=== PATIENT | male | born 2000 | race Caucasian/White ===

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

== ENCOUNTER 2025-04-27 03:22 | Emergency (ER) | payer OTHER, SELFPAY ==
--- OUTSIDE RECORDS SUMMARY | 2021-09-12 09:30 | XMS_ITS | Continuity of Care Document ---
Author Organization [facility] Address [address] [place] [address] Phone Care Team Providers Care Auto Inspector Name Role Phone Ramana AVINASHKan Unavailable Unavailable Allergies, Adverse Reactions, Alerts Substance Reaction Status Criticality No Known allergies Medications Medication Instructions Dosage Effective Dates (start - stop) Status Comments Septra DS 800 mg-160 mg tablet take 1 tablet by oral route every 12 hours for 10 datys 1 tablet - Active Procedures Procedure Date Resin Composite, 1 Surface, Posterior Ja Dental Panoramic Radiographic Image Dental Bitewings Radiographic, Four Imag es Comprehensive Oral Evaluation-New/Est Pt Exempt From Sealant Measure Caries Risk Assess & Doc High Risk Dental Bitewings Radiographic, Four Imag es Dental prophylaxis adult Flouride Varnish Comprehensive Oral Evaluation PERIODIC COMPREHENSIVE PREVENTIVE MED RE E/M; ESTABLISHED PATIENT; 01-01 COLLECTION OF VENOUS BLOOD BY BERTHA RE Amalgam two surfaces Amalgam one surface Extract Coronal remnants deciduous tooth Amalgam one surface Dental prophylaxis child Oral hygiene instruction Comprehensve oral evaluation Voided Encounter Comprehensve oral evaluation Dental bitewings two films Advance Directives Directive Yes / No Effective Date File Name No Information Encounters Encounter Description Practice Location Reason(s) For Visit Diagnoses Date Provider Providers Copied on Encounter [facility], [address], [place], [place], [address] , [place] tel: [phone] [facility] Dental caries, unspecified 2 Ramana Omer. [address], [place], [place], [address], [place]. [phone] Referring Provider: Kan Boles, [address], [place], [address] . tel:[phone] [facility], [address], [place], [place], [address] , [place] tel: [phone] [facility] Encounter for dental exam and cleaning w abnormal findingsDental caries, unspecified 2 No Information [facility], [address], [place], [place], [address] , [place] tel: [phone] [facility] Encounter for dental exam and cleaning w abnormal findings 7 No Information PERIODIC COMPREHENSIVE PREVENTIVE MED REE/M; ESTABLISHED PATIENT; 01-01 [facility], [address], [place], [place], [address] , [place] tel: [phone] [facility] Well Child Visit (chief complaint) ObesityRoutine infant or child health checkUrinary Tract Infection 3 No Information [facility], [address], [place], [place], [address] , [place] tel: [phone] [facility] Dental examination 3 No Information [facility], [address], [place], [place], [address] , [place] tel: [phone] [facility] Dental examination 3 No Information [facility], [address], [place], [place], [address] , [place] tel: [phone] [facility] Dental examination 3 No Information [facility], [address], [place], [place], [address] , tel: [phone] [facility] Dental examination 3 No Information [facility], [address], [place], [place], [address] , [place] tel: [phone] [facility] No Information 3 No Information [facility], [address], [place], [place], [address] , tel: [phone] [facility] Dental examination Oct- 3 No Information Family History Family Member Type Diagnosis Age At Onset No Information Immunizations Vaccine Date Status Comments Flu (split) (3 yrs or older) administered Source: New Immunization Record MMR administered Source: New Imm unization Record Payers Payer name Insurance type Covered constitution party ID Savannah berrios(s) D [facility] CI [id number] Social History Type Description Quantity Date Captured Comments Sex Male Smoking Status No Information Chief Complaint And Reason For Visit No Information Reason For Referral Reason For Referral No Information Plan Of Treatment Date Type Action Status Referral Referred To: Andrea Villegas MS RD [address] [place], [address] Ordered: Referral: Andrea Villegas MS RD. Nutrition. Evaluate and treat. ordered Future Order: Lab Order POC Urin alysis, Macroscopic ([id number]), Appointment on: , Sent on: Sent Future Order: Lab Order COMPREHE NSIVE METABOLIC PANEL W/EGFR ([id number]), Appointment on: , Sent on: Sent Future Order: Lab Order HEMOGLOB IN A1c ([id number]), Appointment on: , Sent on: Sent Future Order: Lab Order LIPID PA LIZZETH ([id number]), Appointment on: , Sent on: Sent Future Order: Lab Order POC Urin alysis, Macroscopic ([id number]), Appointment on: , Sent on: Sent Future Order: Lab Order CBC (H/H , RBC, INDICES, WBC, PLT) ([id number]), Appointment on: , Sent on: Sent Future Order: Lab Order POC Urin alysis, Macroscopic ([id number]), Appointment on: , Sent on: Sent History Of Present Illness Encounter Date Complaint History Of Prese nt Illness No Information Functional Status Date Functional Assessmen t No Information Instructions Date Instruction Additional Infor mation No Information Assessments Type Assessment Date No Information Patient Care Teams Name Effective Dates (start - stop) Status Members No Information
--- OUTSIDE RECORDS SUMMARY | 2021-09-12 09:30 | XMS_ITS | Continuity of Care Document ---
Author Organization [facility] Address [address] [place] [address] Phone Care Team Providers Care Epic Specialist Name Role Phone Ramana AVINASHKan Unavailable Unavailable [...] Encounter [facility], [address], [place], [place], [address] , [place] tel: [phone] [facility] Dental caries, unspecified 2 Ramana Omer. [address], [place], [place], [address], [place]. [phone] Referring Provider: Kan Boles, [address], [place], [address] . tel:[phone] [facility], [address], [place], [place], [address] , [place] tel: [phone] [facility] Encounter for dental exam and cleaning w abnormal findingsDental caries, unspecified 2 No Information [facility], [address], [place], [address] , [place] tel: [phone] [facility] Encounter for dental exam and cleaning w abnormal findings 7 No Information PERIODIC COMPREHENSIVE PREVENTIVE MED REE/M; ESTABLISHED PATIENT; 01-01 [facility], [address], [place], [place], [address] , [place] tel: [phone] [facility] Well Child Visit (chief complaint) ObesityRoutine infant or child health checkUrinary Tract Infection 3 No Information [facility], [address], [place], [address] , [place] tel: [phone] [facility] Dental examination 3 No Information [facility], [address], [place], [place], [address] , [place] tel: [phone] [facility] Dental examination 3 No Information [facility], [address], [place], [place], [address] , [place] tel: [phone] [facility] Dental examination 3 No Information [facility], [address], [place], [place], [address] , tel: [phone] [facility] Dental examination 3 No Information [facility], [address], [place], [address] , [place] tel: [phone] [facility] No Information 3 No Information [facility], [address], [place], [place], [address] , tel: [phone] [facility] Dental examination Oct- 3 No Information Family History Family Member Type Diagnosis Age At Onset No Information Immunizations Vaccine Date Status Comments Flu (split) (3 yrs or older) administered Source: New Immunization Record MMR administered Source: New Imm unization Record Payers Payer name Insurance type Covered republican ID Savannah berrios(s) D [facility] [place] [id number] Social History Type Description Quantity Date Captured Comments Sex Male Smoking Status No Information Chief Complaint And Reason For Visit No Information Reason For Referral Reason For Referral No Information Plan Of Treatment Date Type Action Status Referral Referred To: Andrea Villegas MS RD [address] [place], [address] Ordered: Referral: Andrea Villegas MS RD. Nutrition. Evaluate and treat. ordered Future Order: Lab Order POC Urin alysis, Macroscopic ([id number]), Appointment on: , Sent on: Sent Future Order: Lab Order COMPREHE NSIVE METABOLIC PANEL W/EGFR ([id number]), Appointment on: , Sent on: Sent Future Order: Lab Order HEMOGLOB IN A1c ([id number]), Appointment on: , Sent on: Sent Future Order: Lab Order LIPID PA LIZZETH ([id number]), Appointment on: , Sent on: Sent Future Order: Lab Order POC Urin alysis, Macroscopic ([id number]), Appointment on: , Sent on: Sent Future Order: Lab Order CBC (H/H , RBC, INDICES, WBC, PLT) ([id number]), Appointment on: , Sent on: Sent Future Order: Lab Order POC Urin alysis, Macroscopic ([id number]), Appointment on: , Sent on: Sent History Of Present Illness Encounter Date Complaint History Of Prese nt Illness No Information Functional Status Date Functional Assessmen t No Information Instructions Date Instruction Additional Infor mation No Information Assessments Type Assessment Date No Information Patient Care Teams Name Effective Dates (start - stop) Status Members No Information
--- NOTE | ~2025-04-27 | XR_ITS ---
EXAM/PROCEDURE: XR chest 1V portable - 04/27/2025 3:55 CDT HISTORY: 24 years old Male with chest pain, shortness of breath TECHNIQUE: Two view(s) of the chest. COMPARISON: None available. FINDINGS: LUNGS/ PLEURA: No focal consolidation. Mild perihilar bronchial wall thickening. HEART/ MEDIASTINUM: Heart appears normal in size. BONES: No acute osseous abnormality. OTHER: Visualized upper abdomen is unremarkable. IMPRESSION: No focal consolidation. Mild perihilar bronchial wall thickening, findings suggestive of respiratory bronchiolitis. Reviewed, dictated and finalized at location N. IMPRESSION: No focal consolidation. Mild perihilar bronchial wall thickening, findings sugg estive of respiratory bronchiolitis.
--- OUTSIDE RECORDS SUMMARY | 2025-04-27 03:24 | XMS_ITS | Encounter Summary ---
Author Organization [facility] Address [address] [place] [address] Care Team Providers Care Core Sticker Name Role Phone Ramone Heller MD Unavailable Esperanza Mccabe PA-C Primary Care Provider [phone] Judith Camarillo APRN-DANIEL Unavailable [phone] Reason for Visit * Reason Onset Date Comments MEDICATION REFILL 03/05/2023 States it need s updated TSH and BMP Encounter Details Date Type Department Care Team (Late st Contact Info) Description 03/05/2023 Refill [facility] - Family Medicine [address] [place] [address] Esperanza Mccabe, PA-C [address] [address] MEDICATION REFILL (States it needs updated TSH and BMP) Social History Tobacco Use Types Packs/Day Years Used Date Smoking Tobacco: Never Smokeless Tobacco: Never Alcohol Use Standard Drinks/Week Comments No 0 (1 standard drink = 0.6 oz pur e alcohol) PHQ-2 Answer Date Recorded PHQ2 TOTAL SCORE 6 01/28/2023 Sex and Gender Information Value Date Recorded Sex Assigned at Male 03/23/2023 9:05 AM CDT Legal Sex Male 5:42 AM WEB ASSISTANT Gender Identity Male 03/23/2023 9:05 AM CDT Sexual Orientation Bisexual 03/23/2023 9: 05 AM CDT documented as of this encounter Functional Status * Is person deaf or have serious hearing difficulty? Answer Date of Assessment Author No 05/12/2017 8:57 PM CDT Gay Conley RN * Is person blind or have serious difficulty seeing? Answer Date of Assessment Author No 05/12/2017 8:57 PM CDT Gay Conley, NAVI * Does person have serious difficulty walking/climbing stairs? Answer Date of Assessment Author Yes 05/12/2017 8:57 PM CDT Gay Conley RN * Does person have difficulty dressing/bathing? Answer Date of Assessment Author No 05/12/2017 8:57 PM CDT Gay Conley RN * Does person have difficulty doing errands alone? Answer Date of Assessment Author No 05/12/2017 8:57 PM CDT Gay Conley RN documented as of this encounter Mental Status * Does person have difficulty concentrating/remembering/making decisions? Answer Entry Date Author No 05/12/2017 8:57 PM CDT Gay Conley RN documented in this encounter Miscellaneous Notes * Telephone Encounter - Leighann Mckeon RN - 03/06/2023 10:29 AM CDT Refill Request Jerrell Llamas JEFF: 01/06/23 NOV due: 4 weeks NOV scheduled: 03/24/2023 LRF: 01/06/23 Qty Disp: 90 # of refills: 4 Last TSH: 01/07/2023 Last BMP: 01/27/2019 Allergies: No Known Allergies Pended Medication Order: Requested Prescriptions Pending Prescriptions Disp Refills ??? levothyroxine (Synthroid) 100 MCG tablet 90 tablet 4 Sig: Take 1 (one) tablet by mouth once daily ??? hydroCHLOROthiazide (Microzide) 12.5 MG capsule 90 capsule 4 Sig: Take 1 (one) capsule by mouth once daily documented in this encounter Plan of Treatment Not on file documented as of this encounter Visit Diagnoses Not on filedocumented in this encounter Care Teams Core Sticker Relationship Specialty Start Date End Date Esperanza Mccabe PA-C [address] [place] [phone] PCP - General Physician Radiation Oncology Nurse 02/03/23 Judith Camarillo APRN-PLUGGING MACHINE OPERATOR [address] [place] [phone] PCP - Attributed-[place] [employer] Medicaid STL 08/24/23 12/10/23 Ramone Heller MD [address] [place] [address] Student Resident 02/21/19 documented as of this encounter
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
--- OUTSIDE RECORDS SUMMARY | 2025-04-27 03:24 | XMS_ITS | Encounter Summary ---
Author Organization [facility] Address [address] [place] [address] Care Team Providers Care Traffic Incident Management Manager Name Role Phone Ramone Heller MD Unavailable Esperanza Mccabe PA-C Primary Care Provider Judith Camarillo Unavailable [phone] Reason for Visit * Reason Onset Date Comments MEDICATION REFILL 10/21/2023 Encounter Details Date Type Department Care Team (Late st Contact Info) Description 10/21/2023 Refill [facility] - Family Medicine [address] [place] [address] Esperanza Mccabe PAJaki [address] [address] MEDICATION REFILL Social History Tobacco Use Types Packs/Day Years Used Date Smoking Tobacco: Never Smokeless Tobacco: Never Alcohol Use Standard Drinks/Week Comments No 0 (1 standard drink = 0.6 oz pur e alcohol) PHQ-2 Answer Date Recorded Patient Health Questionnaire-2 Score 1 05/18/2023 Sex and Gender Information Value Date Recorded Sex Assigned at Male 03/23/2023 9:05 AM CDT Legal Sex Male 5:42 AM ELEVATOR ERECTOR Gender Identity Male 03/23/2023 9:05 AM CDT [...] Gay Conley RN * Does person have serious difficulty walking/climbing [...] encounter Miscellaneous Notes * Telephone Encounter - Esperanza Mccabe PA-C - 10/23/2023 5:27 PM ELEVATOR ERECTOR NEEDS APPT prior to any further refills after today's refills. ATOR ERECTOR documented in this encounter Plan of Treatment Not on file documented as of this encounter Visit Diagnoses Not on filedocumented in this encounter Care Teams Traffic Incident Management Manager Relationship Specialty Start Date End Date Esperanza Mccabe PA-C [address] [facility] [address] [place] [address] PCP - General Physician Wrapper Caser 02/03/23 Judith Camarillo APRN-PHYSICIAN ASSISTANT PSYCHIATRY [address] [place] [address] PCP - Attributed-[place] [employer] Medicaid STL 08/24/23 12/10/23 Ramone Heller MD [address] [place] [address] Student Resident 02/21/19 documented as of this encounter
--- OUTSIDE RECORDS SUMMARY | 2025-04-27 03:24 | XMS_ITS | Encounter Summary ---
Author Organization [facility] Address [address] [place] [address] Care Team Providers Care Candy Attendant Name Role Phone Tyshawn Barnes MD Primary Care Provider [phone] Adore Castillo DO Unavailable [phone] Ramone Heller MD Unavailable [phone] Rosetta Wall DO Primary Care Provider Esperanza Mccabe PA-C Primary Care Provider Judith Camarillo APRN-MEASUREMENT PSYCHOLOGIST Unavailable [phone] Encounter Details Date Type Department Care Team (Late st Contact Info) Description 01/28/2019 Telephone [facility] Pediatrics - Endocrinology [facility] [place] [place] [address] Angelina Casillas DO [address] [place] [address] Social History Tobacco Use Types Packs/Day Years Used Date Smoking Tobacco: Never Smokeless Tobacco: Never Alcohol Use Standard Drinks/Week Comments No 0 (1 standard drink = 0.6 oz pur e alcohol) Sex and Gender Information Value Date Recorded Sex Assigned at Male 03/23/2023 9:05 AM CDT Legal Sex Male 5:42 AM FASHION MARKETER Gender Identity Male 03/23/2023 9:05 AM CDT [...] Entry Date Author No 05/12/2017 8:57 PM CUAUHTEMOCT Gay Conley RN documented in this encounter Plan of Treatment Not on file documented as of this encounter Visit Diagnoses Not on filedocumented in this encounter Care Teams Candy Attendant Relationship Specialty Start Date End Date Tyshawn Barnes MD [address] [place] [address] PCP - General Pediatrics 11/07/14 10/20/22 Rosetta Wall DO [address] [facility] [place] [id number] PCP - General 10/21/22 02/02/23 Esperanza Mccabe PA-C [address] [phone] PCP - General Physician Mobility Specialist 02/03/23 Judith Camarillo APRN-MEASUREMENT PSYCHOLOGIST [address] [place] [address] PCP - Attributed-[place] [employer] Medicaid STL 08/24/23 12/10/23 Adore Castillo DO [address] [place] [phone] Student Resident 02/06/16 02/20/19 Ramone Heller MD [address] [place] [id number] Student Resident 02/21/19 documented as of this encounter
--- OUTSIDE RECORDS SUMMARY | 2025-04-27 03:24 | XMS_ITS | Encounter Summary ---
Author Organization [facility] Address [address] [place] [address] Care Team Providers Care Pet Caretaker Name Role Phone Ramone Heller MD Unavailable Esperanza Mccabe PA-C Primary Care Provider Reason for Visit * Reason Onset Date Comments MEDICATION REFILL 07/13/2024 Encounter Details Date Type Department Care Team (Late st Contact Info) Description 07/13/2024 Refill [facility] - Family Medicine [address] [place] [address] Esperanza Mccabe PA-C [address] [address] MEDICATION REFILL Social History Tobacco [...] AM CDT Legal Sex Male 5:42 AM REHABILITATION CENTER MANAGER Gender Identity Male 03/23/2023 9:05 AM CDT [...] of Assessment Author No 05/12/2017 8:57 PM Gay Russell RN documented as of this encounter Mental Status * Does person have difficulty concentrating/remembering/making decisions? Answer Entry Date Author No 05/12/2017 8:57 PM Gay Russell RN documented in this encounter Plan of Treatment Not on file documented as of this encounter Visit Diagnoses Not on filedocumented in this encounter Care Teams Pet Caretaker Relationship Specialty Start Date End Date Esperanza Mccabe PAGamalC [address] [address] PCP - General Physician Geology Professor 02/03/23 Ramone Heller MD [facility] [place] [address] Student Resident 02/21/19 documented as of this encounter
--- OUTSIDE RECORDS SUMMARY | 2025-04-27 03:24 | XMS_ITS | Encounter Summary ---
Author Organization [facility] Address [address] [place] [address] Care Team Providers Care Unix System Administrator Name Role Phone Ramone Heller MD Unavailable [phone] Esperanza Mccabe PA-C Primary Care Provider [phone] Judith Camarillo Unavailable [phone] Reason for Visit * Reason Onset Date Comments MEDICATION REFILL 02/03/2023 Encounter Details Date Type Department Care Team (Late st Contact Info) Description 02/03/2023 Refill [facility] - [facility] Medicine [address] [place] [address] Esperanza Mccabe PAJaki [address] [address] MEDICATION REFILL Social History Tobacco [...] AM CDT Legal Sex Male 5:42 AM CNA LTC Gender Identity Male 03/23/2023 9:05 AM CDT Sexual Orientation Bisexual 03/23/2023 9: 05 AM CDT COVID-19 Exposure Response Date Recorded In the last 10 days, have yo u been in contact with someone who was confirmed or suspected to have Coronavirus/COVID-19? No / Unsure 01/06/2023 2:07 PM CDT documented as of this encounter Functional [...] encounter Miscellaneous Notes * Telephone Encounter - Noemy Almanzar - 02/03/2023 9:26 AM CDT Jerrell Llamas Requested Prescriptions Pending Prescriptions Disp Refills ??? vitamin D, ergocalciferol, (Drisdol) 1.25 MG (57107 UT) capsule 12 capsule 0 Sig: Take 1 (one) capsule by mouth every 7 days No Known Allergies Last Refill:01/06/2023 Qty Dispense:12 # of Refills:0 Last OV:01/02/2023 Next OV:none documented in this encounter Plan of Treatment Not on file documented as of this encounter Visit Diagnoses Not on filedocumented in this encounter Care Teams Unix System Administrator Relationship Specialty Start Date End Date Esperanza Mccabe PA-C [address] [place] [phone] PCP - General Physician Lockstitch Coat Joiner 02/03/23 Judith Camarillo APRN-SUPERVISOR STATEMENT CLERKS [address] [place] [address] PCP - Attributed-[place] Healthy Blue Medicaid STL 08/24/23 12/10/23 Ramone Heller MD [address] [place] [address] Student Resident 02/21/19 documented as of this encounter
--- OUTSIDE RECORDS SUMMARY | 2025-04-27 03:24 | XMS_ITS | Encounter Summary ---
Author Organization [facility] Address [address] [place] [address] Care Team Providers Care Administrative Support Manager Name Role Phone Ramone Heller MD Unavailable Esperanza Mccabe PA-C Primary Care Provider Reason for Visit * Reason Onset Date Comments MEDICATION REFILL 01/20/2024 Encounter Details Date Type Department Care Team (Late st Contact Info) Description 01/20/2024 Refill [facility] - Family Medicine [address] [place] [address] Esperanza Mccabe PA-C [address] [facility] [address] [place] [address] MEDICATION REFILL Social History Tobacco Use [...] AM CDT Legal Sex Male 5:42 AM SUPERVISOR SCOURING PADS Gender Identity Male 03/23/2023 9:05 AM CDT [...] on filedocumented in this encounter Care Teams Administrative Support Manager Relationship Specialty Start Date End Date Esperanza Mccabe PAGamalC [address] [address] PCP - General Physician Geographic Information System Analyst 02/03/23 Ramone Heller MD [facility] [place] [address] Student Resident 02/21/19 documented as of this encounter
--- OUTSIDE RECORDS SUMMARY | 2025-04-27 03:24 | XMS_ITS | Clinical Summary ---
Author Organization [facility] Address [address] [place] [address] Care Team Providers Care Snow Plow Tractor Operator Name Role Phone Gordon Josue MD Primary Care Provider [phone] Allergies No known active allergies Medications [facility] Allergy 180 mg tablet as needed 1 Active ergocalciferol (VITAMIN D) 50,000 unit capsule Take 1 capsule (50,000 Units total) by mouth once a week 12 capsule 1 Active Additional Information Patient not taking.Reported on 03/29/2021 levothyroxine (SYNTHROID) 100 mcg tablet Take 1 tablet (100 mcg total) by mouth daily 90 tablet 3 1 Active Active Problems No known active problems Medical History Medical History Date Comments Hypothyroidism Vitamin D deficiency Obesity Family History Medical History Relation Name Comments No Known Problems Mother Diabetes Paternal Grandfather Relation Name Status Comments Mother Paternal Grandfather Social History Tobacco Use Types Packs/Day Years Used Date Smoking Tobacco: Never Smokeless Tobacco: Never Personal Safety Answer Date Recorded Getting School Help Needed Not on file 11/07 Sex and Gender Information Value Date Recorded Sex Assigned at Not on file Legal Sex Male 10:57 AM CDT Gender Identity Not on file Sexual Orientation Not on file Obstetrics History Last Filed Vital Signs Vital Sign Reading Time Taken Comments Blood Pressure 102/84 01/02/2021 8:54 AM CDT Pulse 96 01/02/2021 8:54 AM CDT Temperature 35.9 C (96.6 F) 01/02/2021 8:54 AM CDT Respiratory Rate - - Oxygen Saturation 97% 01/02/2021 8:54 AM CDT Inhaled Oxygen Concentration - - Weight 217.7 kg (480 lb) 03/29/2021 1:06 PM CDT Height 180.3 cm (5' 11) 03/29/2021 1:06 PM CDT Body Mass Index 66.95 03/29/2021 1:06 PM CDT Plan of Treatment Not on file Care Teams Snow Plow Tractor Operator Relationship Specialty Start Date End Date Gordon Josue MD PCP - General Emergency Medicine 12/24/20
--- OUTSIDE RECORDS SUMMARY | 2025-04-27 03:24 | XMS_ITS | Encounter Summary ---
Author Organization [facility] Address [address] [facility] [place] [address] Care Team Providers Care Executive Administrator Name Role Phone Ramone Heller MD Unavailable [phone] Esperanza Mccabe PA-C Primary Care Provider Judith Camarillo Unavailable [phone] Reason for Visit * Reason Onset Date Comments MEDICATION REFILL 07/15/2023 Encounter Details Date Type Department Care Team (Late st Contact Info) Description 07/15/2023 Refill [facility] - [facility] Medicine [address] [place] [address] Esperanza Mccabe PAJaki [address] [address] MEDICATION REFILL Social History Tobacco [...] AM CDT Legal Sex Male 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
--- OUTSIDE RECORDS SUMMARY | 2025-04-27 03:24 | XMS_ITS | Encounter Summary ---
Author Organization [facility] Address [address] [place] [address] Care Team Providers Care Surgical Garment Inspector Name Role Phone Tyshawn Barnes MD Primary Care Provider [phone] Adore Castillo DO Unavailable [phone] Ramone Heller MD Unavailable [phone] Rosetta Wall DO Primary Care Provider Esperanza Mccabe PA-C Primary Care Provider Judith Camarillo APRN-PACKAGE REINSPECTOR Unavailable [phone] Reason for Visit * Reason Onset Date Comments Concerns 10/30/2017 Encounter Details Date Type Department Care Team (Late st Contact Info) Description 10/30/2017 Telephone [facility] [address] [place] [address] Tyshawn Barnes MD [address] [place] [address] Concerns Social History Tobacco Use Types Packs/Day Years Used Date Smoking Tobacco: Never Smokeless Tobacco: Never Alcohol Use Standard Drinks/Week Comments No 0 (1 standard drink = 0.6 oz pur e alcohol) Sex and Gender Information Value Date Recorded Sex Assigned at Male 03/23/2023 9:05 AM CDT Legal Sex Male 5:42 AM WELFARE AIDE Gender Identity Male 03/23/2023 9:05 AM CDT Sexual Orientation Bisexual 03/23/2023 9: 05 AM CDT documented as of this encounter Functional Status * Is person deaf or have serious hearing difficulty? Answer Date of Assessment Author No 05/12/2017 8:57 PM CDT Gay Conley, NAVI * Is person blind or have serious [...] Gay Conley, NAVI * Does person have difficulty doing errands alone? Answer Date of Assessment Author No 05/12/2017 8:57 PM CDT Gay Conley RN documented as of this encounter Mental Status * Does person have difficulty concentrating/remembering/making decisions? Answer Entry Date Author No 05/12/2017 8:57 PM Gay Russell RN documented in this encounter Miscellaneous Notes * Telephone Encounter - Noemi Vences MD - 10/30/2017 11:22 AM CST Called grandmother and verified that there was no VM left. Review of chart, do not see any message that was supposed to be relayed to the family. Grandmother has no concerns and already spoke to confirm appt next 11/02. ARE AIDE * Telephone Encounter - Cheli Castillo - 10/30/2017 9:46 AM CST Jerrell Llamas's, 16 y.o. male, grandmother stated that she missed a call from us but there's nonote in the chart. Agreed to route call back to the doctors to make sure there's nothing the patient or grandmother needs to do before their upcoming appointment. Instructed that provider will call back at their earliest convenience. ARE AIDE documented in this encounter Plan of Treatment Not on file documented as of this encounter Visit Diagnoses Not on filedocumented in this encounter Care Teams Surgical Garment Inspector Relationship Specialty Start Date End Date Tyshawn Barnes MD [address] [place] [phone] PCP - General Pediatrics 11/07/14 10/20/22 Rosetta Wall DO [address] [place] [address] [facility] [place] [phone] PCP - General 10/21/22 02/02/23 Esperanza Mccabe PA-C [address] [phone] PCP - General Physician Fugitive Investigator 02/03/23 Judith Camarillo APRN-PACKAGE REINSPECTOR [address] [place] [phone] [facility] - [facility] 08/24/23 12/10/23 Adore Castillo DO [address] [place] [phone] Student Resident 02/06/16 02/20/19 Ramone Heller MD [address] [place] [address] Student Resident 02/21/19 documented as of this encounter
--- OUTSIDE RECORDS SUMMARY | 2025-04-27 03:24 | XMS_ITS | Encounter Summary ---
Author Organization [facility] Address [address] [place] [address] Care Team Providers Care Lard Bleacher Name Role Phone Tyshawn Barnes MD Primary Care Provider [phone] Adore Castillo DO Unavailable [phone] Ramone Heller MD Unavailable [phone] Rosetta Wall DO Primary Care Provider Esperanza Mccabe PA-C Primary Care Provider Judith Camarillo APRN-CHIPS SCREEN TENDER Unavailable [phone] Reason for Visit * Reason Onset Date Comments Refill Request 04/19/2018 Encounter Details Date Type Department Care Team (Late st Contact Info) Description 04/19/2018 Telephone [facility] [address] [place] [address] Tyshawn Barnes MD [address] [place] [address] Refill Request Social History Tobacco Use Types Packs/Day Years Used Date Smoking Tobacco: Never Smokeless Tobacco: Never Alcohol Use Standard Drinks/Week Comments No 0 (1 standard drink = 0.6 oz pur e alcohol) Sex and Gender Information Value Date Recorded Sex Assigned at Male 03/23/2023 9:05 AM CDT Legal Sex Male 5:42 AM DIRECTOR FINANCIAL PLANNING Gender Identity Male 03/23/2023 9:05 AM CDT [...] encounter Miscellaneous Notes * Telephone Encounter - Estelita Castellon DO - 04/19/2018 3:50 PM CDT Refilled prescriptions * Telephone Encounter - Whitley Gilmore - 04/19/2018 3:44 PM CDT Pharmacy fax request received. Medication(s) to be refilled: alaway 0.025% eye drops, loratadine (CLARITIN) 10 MG tablet Last well child check up: 11/02/17 Pharmacy verified in [facility]. No future appointments. documented in this encounter Plan of Treatment Not on file documented as of this encounter Visit Diagnoses Not on filedocumented in this encounter Care Teams Lard Bleacher Relationship Specialty Start Date End Date Tyshawn Barnes MD [address] [place] [address] PCP - General Pediatrics 11/07/14 10/20/22 Rosetta Wall DO [facility] 2L DIV OF [facility] [place] [place] [phone] PCP - General 10/21/22 02/02/23 Esperanza Mccabe, PAGamalC [address] [address] PCP - General Physician Inside Sales Account Executive 02/03/23 Judith Camarillo, NEWSPAPER DELIVERY DRIVER-CHIPS SCREEN TENDER [address] [place] [phone] PCP - Attributed-[place] Healthy Blue Medicaid STL 08/24/23 12/10/23 Adore Castillo DO [address] [place] [phone] Student Resident 02/06/16 02/20/19 Ramone Heller MD [address] [place] [address] Student Resident 02/21/19 documented as of this encounter
--- OUTSIDE RECORDS SUMMARY | 2025-04-27 03:24 | XMS_ITS | Encounter Summary ---
Author Organization [facility] Address [address] [facility] [place] [address] Care Team Providers Care Traffic Engineer Name Role Phone Ramone Heller MD Unavailable [phone] Esperanza Mccabe PA-C Primary Care Provider [phone] Reason for Visit * Reason Onset Date Comments MEDICATION REFILL 08/21/2024 Encounter Details Date Type Department Care Team (Late st Contact Info) Description 08/21/2024 Refill [facility] - [facility] [address] [place] [address] Esperanza Mccabe PA-C [address] [address] MEDICATION REFILL Social History Tobacco [...] AM CDT Legal Sex Male 5:42 AM PROCUREMENT ACCOUNTANT Gender Identity Male 03/23/2023 9:05 AM CDT [...] Telephone Encounter - Esperanza Mccabe PA-C - 08/29/2024 12:39 PM PROCUREMENT ACCOUNTANT He needs to see me IN PERSON prior to any refills. If he makes an appointment, I can prescribe enough to get him to that appointment. I saw him last 07/2023, by video, and asked him then to follow up ERASTO in person. UREMENT ACCOUNTANT * Telephone Encounter - Kaley Bonilla - 08/22/2024 1:38 PM CST Refill Request Jerrell Llamas Jr. JEFF: 07/28/23 NOV due: - NOV scheduled: Visit date not found LRF: 07/14/24,07/14/24 Qty Disp: 30,30 # of refills: 1,1 Allergies: No Known Allergies Pended Medication Order: Requested Prescriptions Pending Prescriptions Disp Refills hydroCHLOROthiazide (Microzide) 12.5 MG capsule 30 capsule 1 Sig: Take 1 (one) capsule by mouth once daily levothyroxine (Synthroid) 125 MCG tablet 30 tablet 1 Sig: Take 1 (one) tablet by mouth once daily UREMENT ACCOUNTANT documented in this encounter Plan of Treatment Not on file documented as of this encounter Visit Diagnoses Not on filedocumented in this encounter Care Teams Traffic Engineer Relationship Specialty Start Date End Date Esperanza Mccabe PA-C [address] [facility] [address] [place] [phone] PCP - General Physician Structural Steel Painter 02/03/23 Ramone Heller MD [address] [place] [address] Student Resident 02/21/19 documented as of this encounter
[2025-04-27 03:29] VITALS: BP 161/102; PULSE 96; RESP 22; TEMP 36.6; O2SAT 99
--- NOTE | 2025-04-27 03:36 | ECG_ITS ---
Test Date: 2025-04-27 03:45:31 Measurements Intervals [place] Rate: 95 P: 47 WA: 144 QRS: 54 QRSD: 101 T: 47 QT: 329 QTc: 414 Interpretive Statements SINUS RHYTHM No previous ECG available for comparison Electronically Signed On 04-27-2025 11:37:20 CDT by Pollo Aparicio M.D.
[2025-04-27] MEDS: KETOROLAC 30 MG/ML VIAL (*BKC) IM (04:11)
[2025-04-27] MEDS: LIDOCAINE 5% PATCH 1 PATCH TRANSDERM (04:12)
--- OUTSIDE RECORDS SUMMARY | 2025-04-27 04:20 | XMS_ITS | Encounter Summary ---
Author Organization [facility] Address [address] [place] [address] Care Team Providers Care Broadcaster Name Role Phone Tyshawn Barnes MD Primary Care Provider [phone] Adore Castillo DO Unavailable [phone] Ramone Heller MD Unavailable [phone] Rosetta Wall DO Primary Care Provider Esperanza Mccabe PA-C Primary Care Provider Judith Camarillo APRN-HAND THERMAL CUTTER Unavailable [phone] Reason for Visit * Reason Onset Date Comments Refill Request 04/19/2018 Encounter Details Date Type Department Care Team (Late st Contact Info) Description 04/19/2018 Telephone [facility] [address] [place] [address] Tyshawn Barnes MD [address] [place] [address] Refill Request Social History Tobacco Use Types Packs/Day Years Used Date Smoking Tobacco: Never Smokeless Tobacco: Never Alcohol Use Standard Drinks/Week Comments No 0 (1 standard drink = 0.6 oz pur e alcohol) Sex and Gender Information Value Date Recorded Sex Assigned at Male 03/23/2023 9:05 AM CDT Legal Sex Male 5:42 AM TEACHER PRIVATE Gender Identity Male 03/23/2023 9:05 AM CDT [...] child check up: 11/02/17 Pharmacy [facility] in [facility] medical [facility]. No future appointments. documented in this encounter Plan of Treatment Not on file documented as of this encounter Visit Diagnoses Not on filedocumented in this encounter Care Teams Broadcaster Relationship Specialty Start Date End Date Tyshawn Barnes MD [address] [place] [address] PCP - General Pediatrics 11/07/14 10/20/22 Rosetta Wall DO [facility] 2L DIV OF [facility] [place] [phone] PCP - General 10/21/22 02/02/23 Esperanza Mccabe, PAGamalC [address] [address] PCP - General Physician Fertilizer Mixer 02/03/23 Judith Camarillo, EQUIPMENT MECHANIC-HAND THERMAL CUTTER [address] [place] [phone] PCP - Attributed-[place] Healthy Blue Medicaid STL 08/24/23 12/10/23 Adore Castillo DO [address] [place] [phone] Student Resident 02/06/16 02/20/19 Ramone Heller MD [address] [place] [address] Student Resident 02/21/19 documented as of this encounter
--- OUTSIDE RECORDS SUMMARY | 2025-04-27 04:20 | XMS_ITS | Encounter Summary ---
Author Organization [facility] Address [address] [facility] [place] [address] Care Team Providers Care Dye Room Helper Name Role Phone Ramone Heller MD Unavailable Esperanza Mccabe PA-C Primary Care Provider Reason for Visit * Reason Onset Date Comments MEDICATION REFILL 08/21/2024 Encounter Details Date Type Department Care Team (Late st Contact Info) Description 08/21/2024 Refill [facility] [address] [place] [address] Esperanza Mccabe PA-C [address] [address] MEDICATION REFILL Social History Tobacco [...] AM CDT Legal Sex Male 5:42 AM NET APPLICATION ARCHITECT Gender Identity Male 03/23/2023 9:05 AM CDT [...] Esperanza Mccabe PA-C - 08/29/2024 12:39 PM NET APPLICATION ARCHITECT He needs to see me IN PERSON prior to any refills. If he makes an appointment, I can prescribe enough to get him to that appointment. I saw him last 07/2023, by video, and asked him then to follow up ERASTO in person. APPLICATION ARCHITECT * Telephone Encounter - Kaley Bonilla - [...] 1 (one) tablet by mouth once daily APPLICATION ARCHITECT documented in this encounter Plan of Treatment Not on file documented as of this encounter Visit Diagnoses Not on filedocumented in this encounter Care Teams Dye Room Helper Relationship Specialty Start Date End Date Esperanza Mccabe PA-C [address] [facility] [address] [place] [phone] PCP - General Physician Caser 02/03/23 Ramone Heller MD [address] [place] [address] Student Resident 02/21/19 documented as of this encounter
--- OUTSIDE RECORDS SUMMARY | 2025-04-27 04:20 | XMS_ITS | Clinical Summary ---
Author Organization [facility] Address [address] [facility] [address] [place] [address] Care Team Providers Care Alligator Shear Operator Name Role Phone Ramone Heller MD Unavailable [phone] Esperanza Mccabe PA-C Primary Care Provider [phone] Source Comments [facility],non-owned Affiliates and Associated Physician Practices is amultiple site organization consisting of ambulatory clinics and hospital sitesin [place], [place], [place] and [place]. This disclosure is being madepursuant to the Care Everywhere program and may not contain all information available regarding this patient. Last updated 18.[facility] General Assembly Allergies No known active allergies Medications * [...] Active vitamin D, ergocalciferol, (Drisdol) 1.25 MG (54155 UT) capsule Take 1 (one) capsule by [...] call Jerrell directly at his cell phone [phone]; afternoon hours will work best for him. [...] today Assessment & Plan (10/07/2016 7:39 PM MACHINE OVERHAULER): TSH and T4 again at near normal levels Vitamin D deficiency 07/01/2016 Assessment & Plan (11/02/2017 4:59 PM CDT): Vitamin D level of 7.43 on 10/07/2016. On Vit D 2000U daily. Plan: - Will recheck Vitamin D level today Assessment & Plan (10/07/2016 7:40 PM MACHINE OVERHAULER): Low Vitamin D persists. Continue Cholecalciferol 2000 [...] today Assessment & Plan (10/07/2016 7:39 PM MACHINE OVERHAULER): Spent 30 minutes counseling re: Diet Exercise Need for family buy-in Use of calorie counting apps RTO 3-4 months for followup. Assessment & Plan (07/10/2016 3:29 PM MACHINE OVERHAULER): Spent 20 minutes counseling re: Diet Exercise Need for family buy-in Use of calorie counting apps RTO 3 months for followup. Assessment & Plan (12/22/2014 2:57 PM CDT): Had long discussion (approx 45 min) of diet, exercise. Add [employer] luz marina to smartphone. Schedule at least [...] arise. Assessment & Plan (07/10/2016 3:29 PM MACHINE OVERHAULER): Jerrell Llamas is here for his adolescent well child check and has abnormal growth excessive weight anny and normal development. Immunizations up to date [...] AM CDT Legal Sex Male 5:42 AM MACHINE OVERHAULER Gender Identity Male 03/23/2023 9:05 AM CDT [...] Reactive Non Reactive 12/08/2017 8:41 AM CDT [facility] HBsAg Non Reactive Non Reactive 12/08/2017 8:41 AM CDT [facility] HBc Antibody IgM Non Reactive Non Reactive 12/08/2017 8:41 AM CDT [facility] HCV Antibody Screen Non Reactive Non Reactive 12/08/2017 8:41 AM T [facility] HCV S/C Ratio 0.07 0.00 - 0.79 12/08/2017 8:41 AM T [facility] Comment: Luxaah-yc-xhfobk ratio (S/CO) <0.80: Non Reactive Blood BLOOD SPECIMEN / Unknown Lab Venipuncture / Unknown 12/07/2017 10:49 AM CDT 12/07/2017 11:20 AM CDT Narrative [facility] - 12/08/2017 8:41 AM CDT Non Reactive - Antibodies to Hepatitis C virus (HCV) were not detected, result does not exclude early acute HCV infection. Non Reactive - Antibodies to Hepatitis C virus (HCV) were not detected, result does not exclude early acute HCV infection. us Fanny Miller TRUCK REPAIR SUPERVISOR-BOARDING MACHINE OPERATOR LAB - CHEMISTRY O RDERABLES Final Result [facility] [address] [place] [address] from Last 3 Months or Most Recently Relevant to Health Maintenance Insurance [place]ID [place] Advance Directives * Full Code (Latest Code Status on File) Date Activated Date Inactivated Comments 05/12/2017 8:24 PM 05/14/2017 2:30 PM Care Teams Alligator Shear Operator Relationship Specialty Start Date End Date Esperanza Mccabe PA-C [address] [facility] [address] [place] [address] PCP - General Physician Block Hand 02/03/23 Ramone Heller MD [address] [place] [address] Student Resident 02/21/19
--- OUTSIDE RECORDS SUMMARY | 2025-04-27 04:20 | XMS_ITS | Encounter Summary ---
Author Organization [facility] Address [address] [place] [address] Care Team Providers Care Dietary Director Name Role Phone Ramone Heller MD Unavailable Esperanza Mccabe PA-C Primary Care Provider Reason for Visit * Reason Onset Date Comments MEDICATION REFILL 01/20/2024 Encounter Details Date Type Department Care Team (Late st Contact Info) Description 01/20/2024 Refill [facility] - Family Medicine [address] [place] [address] Esperanza Mccabe PA-C [address] [facility] [address] [place] [address] MEDICATION REFILL Social History Tobacco [...] AM CDT Legal Sex Male 5:42 AM LOG BRANDER Gender Identity Male 03/23/2023 9:05 AM CDT [...] on filedocumented in this encounter Care Teams Dietary Director Relationship Specialty Start Date End Date Esperanza Mccabe PAGamalC [address] [address] PCP - General Physician Sugar Mixer 02/03/23 Ramone Heller MD [facility] [place] [address] Student Resident 02/21/19 documented as of this encounter
--- OUTSIDE RECORDS SUMMARY | 2025-04-27 04:20 | XMS_ITS | Encounter Summary ---
Author Organization [facility] Address [address] [place] [address] Care Team Providers Care National Sales Executive Name Role Phone Ramone Heller MD Unavailable [phone] Esperanza Mccabe PA-C Primary Care Provider Judith Camarillo Unavailable [phone] Reason for Visit * Reason Onset Date Comments MEDICATION REFILL 10/21/2023 Encounter Details Date Type Department Care Team (Late st Contact Info) Description 10/21/2023 Refill [facility] - [facility] [address] [place] [address] Esperanza Mccabe PAJaki [address] [address] MEDICATION REFILL Social History Tobacco [...] AM CDT Legal 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 OR MACHINE PASTER documented in this encounter Plan of Treatment Not on file documented as of this encounter Visit Diagnoses Not on filedocumented in this encounter Care Teams National Sales Executive Relationship Specialty Start Date End Date Esperanza Mccabe PA-C [address] [facility] [address] [place] [address] PCP - General Physician Foreign Food Cook Specialty 02/03/23 Judith Camarillo APRN-OIL RECOVERY OPERATOR [address] [place] [address] PCP - Attributed-[place] [facility] Blue Medicaid STL 08/24/23 12/10/23 Ramone Heller MD [address] [place] [address] Student Resident 02/21/19 documented as of this encounter
--- OUTSIDE RECORDS SUMMARY | 2025-04-27 04:20 | XMS_ITS | Encounter Summary ---
Author Organization [facility] Address [address] [facility] [place] [address] Care Team Providers Care Front End Manager Name Role Phone Ramone Heller MD Unavailable [phone] Esperanza Mccabe PA-C Primary Care Provider Judith Camarillo Unavailable [phone] Reason for Visit * Reason Onset Date Comments MEDICATION REFILL 07/15/2023 Encounter Details Date Type Department Care Team (Late st Contact Info) Description 07/15/2023 Refill [facility] - [facility] Medicine [address] [place] [address] Esperanza Mccabe PAJaki [address] [address] MEDICATION REFILL Social History Tobacco [...] AM CDT 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
--- OUTSIDE RECORDS SUMMARY | 2025-04-27 04:20 | XMS_ITS | Clinical Summary ---
Author Organization [facility] Address [address] [place] [address] Care Team Providers Care Cloth Dye Range Operator Name Role Phone Gordon Josue MD Primary Care Provider [phone] Allergies No known active allergies Medications Wal-Fex [...] of Treatment Not on file Care Teams Cloth Dye Range Operator Relationship Specialty Start Date End Date Gordon Josue MD PCP - General Emergency Medicine 12/24/20
--- OUTSIDE RECORDS SUMMARY | 2025-04-27 04:20 | XMS_ITS | Encounter Summary ---
Author Organization [facility] Address [address] [facility] [place] [address] Care Team Providers Care Cushion Installer Name Role Phone Tyshawn Barnes MD Primary Care Provider [phone] Adore Castillo DO Unavailable [phone] Ramone Heller MD Unavailable [phone] Rosetta Wall DO Primary Care Provider Esperanza Mccabe PA-C Primary Care Provider Judith Camarillo APRN-PUBLIC TRANSIT SPECIALIST Unavailable [phone] Reason for Visit * Reason Onset Date Comments Concerns 10/30/2017 Encounter Details Date Type Department Care Team (Late st Contact Info) Description 10/30/2017 Telephone [facility] [address] [place] [address] Tyshawn Barnes MD [address] [place] [address] Concerns Social History Tobacco Use Types Packs/Day Years Used Date Smoking Tobacco: Never Smokeless Tobacco: Never Alcohol Use Standard Drinks/Week Comments No 0 (1 standard drink = 0.6 oz pur e alcohol) Sex and Gender Information Value Date Recorded Sex Assigned at Male 03/23/2023 9:05 AM CDT Legal 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 ARCHIVIST * Telephone Encounter - Cheli Castillo - [...] will call back at their earliest convenience. ARCHIVIST documented in this encounter Plan of Treatment Not on file documented as of this encounter Visit Diagnoses Not on filedocumented in this encounter Care Teams Cushion Installer Relationship Specialty Start Date End Date Tyshawn Barnes MD [address] [place] [phone] PCP - General Pediatrics 11/07/14 10/20/22 Rosetta Wall DO [address] [place] [address] OF [facility] [place] [phone] PCP - General 10/21/22 02/02/23 Esperanza Mccabe PA-C [address] [phone] PCP - General Physician Oracle Specialist 02/03/23 Judith Camarillo APRN-PUBLIC TRANSIT SPECIALIST [address] [place] [phone] PCP - Attributed[facility] Blue Medicaid ST 08/24/23 12/10/23 Adore Castillo DO [address] [place] [phone] Student Resident 02/06/16 02/20/19 Ramone Heller MD [address] [place] [address] Student Resident 02/21/19 documented as of this encounter
--- OUTSIDE RECORDS SUMMARY | 2025-04-27 04:20 | XMS_ITS | Encounter Summary ---
Author Organization [facility] Address [address] [facility] [place] [address] Care Team Providers Care Mountain Guide Name Role Phone Ramone Heller MD Unavailable [phone] Esperanza Mccabe PA-C Primary Care Provider [phone] Judith Camarillo Unavailable [phone] Reason for Visit * Reason Onset Date Comments MEDICATION REFILL 02/03/2023 Encounter Details Date Type Department Care Team (Late st Contact Info) Description 02/03/2023 Refill [facility] [address] [place] [address] Esperanza Mccabe PAJaki [address] [address] MEDICATION REFILL Social History Tobacco [...] AM CDT 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 vitamin D, ergocalciferol, (Drisdol) 1.25 MG (66987 UT) capsule 12 capsule 0 Sig: Take 1 (one) capsule by mouth every 7 days No Known Allergies Last Refill:01/06/2023 Qty Dispense:12 # of Refills:0 Last OV:01/02/2023 Next OV:none documented in this encounter Plan of Treatment Not on file documented as of this encounter Visit Diagnoses Not on filedocumented in this encounter Care Teams Mountain Guide Relationship Specialty Start Date End Date Esperanza Mccabe PA-C [address] [place] [phone] PCP - General Physician Crocodile Farmer 02/03/23 Judith Camarillo APRN-ALARM TECHNICIAN [address] [place] [address] PCP - Attributed-[place] [facility] Blue Medicaid STL 08/24/23 12/10/23 Ramone Heller MD [address] [place] [address] Student Resident 02/21/19 documented as of this encounter
--- OUTSIDE RECORDS SUMMARY | 2025-04-27 04:20 | XMS_ITS | Encounter Summary ---
Author Organization [facility] Address [address] [facility] [address] Care Team Providers Care 3D Modeler Name Role Phone Ramone Heller MD Unavailable Esperanza Mccabe PA-C Primary Care Provider Judith Camarillo APRN-DANIEL Unavailable [phone] Reason for Visit * Reason Onset Date Comments MEDICATION REFILL 03/05/2023 States it need s updated TSH and BMP Encounter Details Date Type Department Care Team (Late st Contact Info) Description 03/05/2023 Refill [facility] [address] [place] [address] Esperanza Mccabe, PA-C [address] [address] MEDICATION REFILL (States it needs [...] AM CDT 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
--- OUTSIDE RECORDS SUMMARY | 2025-04-27 04:20 | XMS_ITS | Encounter Summary ---
Author Organization [facility] Address [address] [facility] [place] [address] Care Team Providers Care Guide Dog Trainer Name Role Phone Ramone Heller MD Unavailable Esperanza Mccabe PA-C Primary Care Provider Reason for Visit * Reason Onset Date Comments MEDICATION REFILL 07/13/2024 Encounter Details Date Type Department Care Team (Late st Contact Info) Description 07/13/2024 Refill [facility] [address] [place] [address] Esperanza Mccabe PA-C [address] [address] MEDICATION REFILL Social History Tobacco [...] AM CDT 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
--- OUTSIDE RECORDS SUMMARY | 2025-04-27 04:20 | XMS_ITS | Encounter Summary ---
Author Organization [facility] Address [address] [facility] [place] [address] Care Team Providers Care Fabricator Artificial Breast Name Role Phone Tyshawn Barnes MD Primary Care Provider [phone] Adore Castillo DO Unavailable [phone] Ramone Heller MD Unavailable [phone] Rosetta Wall DO Primary Care Provider [phone] Esperanza Mccabe PA-C Primary Care Provider Judith Camarillo APRN-CABIN MAN Unavailable [phone] Encounter Details Date Type Department Care Team (Late st Contact Info) Description 01/28/2019 Telephone [facility] Pediatrics - Endocrinology [facility] 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 OFFICER Gender Identity Male 03/23/2023 9:05 AM CDT [...] on filedocumented in this encounter Care Teams Fabricator Artificial Breast Relationship Specialty Start Date End Date Tyshawn Barnes MD [address] [place] [address] PCP - General Pediatrics 11/07/14 10/20/22 Rosetta Wall DO [address] OF [facility] [place] [phone] PCP - General 10/21/22 02/02/23 Esperanza Mccabe PA-C [address] [phone] PCP - General Physician Box Sealing Machine Catcher 02/03/23 Judith Camarillo APRN-CABIN MAN [address] [place] [address] PCP - Attributed-[place] Healthy Blue Medicaid STL 08/24/23 12/10/23 Adore Castillo DO [address] [place] [phone] Student Resident 02/06/16 02/20/19 Ramone Heller MD [address] [place] [id number] Student Resident 02/21/19 documented as of this encounter
[2025-04-27 04:23] LABS: Influenza A QL RT-PCR Negative (Negative); Influenza B QL RT-PCR Negative (Negative); RSV RNA, RT-PCR Negative (Negative); SARS-CoV-2 RNA PCR Negative (Negative)
--- NOTE | 2025-04-27 04:27 | ED.BACK ---
HPI - Back Pain/Injury General Chief Complaint: Back Pain/Injury Stated Complaint: cold symptoms, back pain Time Seen by Provider: 04/27/25 03:43 History of Present Illness HPI Narrative: this is a 24-year-old male with history of hypothyroidism, hypertension who presents to the ED for back pain and chest pressure. Patient states that he has had cough for the past day or so. He states that he was woken with mid upper back pain that radiated to his chest prompting him to come to the ED. No known cardiac disease. He does work at the [employer] and notes that couple days ago he was out on for which he normally does not do. No known sick contacts otherwise. Denies fevers, chills, nausea, vomiting, diarrhea, constipation. Related Data Home Medications ?Medication ?Instructions ?Recorded ?Confirmed ?Last Taken ?Type loratadine 10 mg tablet (Allergy 10 mg PO DAILY 03/01/25 03/01/25 Unknown History Relief (loratadine)) Allergies Allergy/AdvReac Type Severity Reaction Status Date / Time No Known Allergies Allergy Verified 04/27/25 03:37 Review of Systems Review of Systems: Gen.: Denies fevers or chills Eyes: Denies eye pain or visual change ENT: Denies congestion Respiratory: Denies shortness of breath or cough CV: Denies chest pain or palpitations GI: Denies abdominal pain nausea, emesis or diarrhea denies burning, urgency, frequency or hematuria Musculoskeletal: Denies back pain or muscle pain Neuro: Denies numbness, tingling, weakness or focal weakness Skin: Denies rash Except as documented, all other systems reviewed and negative [facility] Past Medical History Medical History Hypothyroidism Impaired fasting glucose Hidradenitis suppurativa Depression Surgical History Surgical History History of incision and drainage infected dog bite Family History Family History Father Alcoholism Grandparent Alcoholism Asthma Depression Cerebrovascular accident Heart disease Grandparent Depression Grandparent Alcoholism Diabetes mellitus Social History Social History Social History: will smoke up to 2 cigarettes per day Smoking status: Current some day smoker Tobacco type: cigarettes Alcohol intake: current Drinks per week: 4 Substance use: current Substance use type: marijuana Occupation/Education: occupation 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 CARDIOVASCULAR: Regular rate and rhythm without murmurs rubs or gallops. ABDOMINAL: Morbid obesity.Soft, nontender, nondistended, no rebound or guarding MUSCULOSKELETAl: Moves all extremities. No clubbing, cyanosis or edema. NEURO: Awake and alert. Following commands, speech normal, no focal deficits SKIN:: Warm, dry. No rashes lesions or abrasions PSYCHIATRIC: Normal affect/mood, Course Vital Signs Vital signs: Vital Signs Temperature 97.9 F 04/27/25 03:29 Pulse Rate 96 04/27/25 03:29 Respiratory Rate 22 H 04/27/25 03:29 Blood Pressure 161/102 H 04/27/25 03:29 Pulse Oximetry 99 04/27/25 03:29 Oxygen Delivery Room Air 04/27/25 03:29 Temperature 97.9 F 04/27/25 03:29 Pulse Rate 96 04/27/25 03:29 Respiratory Rate 22 H 04/27/25 03:29 Blood Pressure 161/102 H 04/27/25 03:29 Pulse Oximetry 99 04/27/25 03:29 Oxygen Delivery Room Air 04/27/25 03:29 MDM - Back Pain/Injury MDM Narrative Medical decision making narrative: 24-year-old male who presents to the ED for back pain and chest pain. Patient's EKGs and labs are without significant high risk changes. Cardiac risk factors reviewed. Patient is felt likely low risk for ACS and reasonable for further risk stratification testing as an outpatient. Pain was not sudden or maximal in onset without tearing or ripping quality. No other signs of symptoms suggest aortic dissection. PERC negative, PE is felt to be unlikely. No pneumonia seen on evaluation today. Patient is felt to be a reasonable candidate for continued evaluation as an outpatient . He was a prescription Lidoderm. He was educated on Tylenol ibuprofen use. Patient was agreeable to this plan. Given strict return precautions. Differential Diagnosis Differential diagnosis: Likely other ( ACS, viral syndrome, costochondritis, pleurisy) Medical Records Attestation: I reviewed the patient's medical records. Lab Data Attestation: I reviewed the patient's lab results. 04/27/25 04:56 04/27/25 05:18 Labs: Lab Results 04/27/25 04/27/25 04/27/25 Range/Units 03:43 04:56 05:18 WBC 8.8 (4.5-10.0) K/mm3 RBC 5.08 (4.6-6.20) M/mm3 Hgb 13.5 L (14.0-18.0) g/dL Hct 43.5 (42.0-52.0) % MCV 85.6 (80-100) fl MCH 26.6 (26-34) pg MCHC 31.0 L (32-36) g/dl RDW 14.6 H (11.5-14.5) % Plt Count 182 (150-375) k/mm3 MPV 10.3 (7.4-10.4) fl Immature Gran % (Auto) Not Reportable Neut % (Auto) Not Reportable Lymph % (Auto) Not Reportable Stearns % (Auto) Not Reportable Eos % (Auto) Not Reportable Baso % (Auto) Not Reportable Lymph # (Auto) Not Reportable Stearns # (Auto) Not Reportable Eos # (Auto) Not Reportable Baso # (Auto) Not Reportable Abs Immat Gran (auto) Not Reportable Absolute Neuts (auto) Not Reportable Absolute Nucleated RBC Not Reportable Total Counted 100 Neutrophils % (Manual) 78 H (46-73) % Band Neutrophils % 5 (0-6) % Lymphocytes % (Manual) 10 L (18-44) % Monocytes % (Manual) 6 (3-9) % Eosinophils % (Manual) 1 (0-4) % Nucleated RBC % Not Reportable Abs Neuts (Manual) 7.30 H (1.3-6.7) K/mm3 Abs Lymphs (Manual) 0.88 L (1.1-4.5) K/mm3 Abs Monocytes (Manual) 0.52 (0.1-0.90) K/mm3 Absolute Eos (Manual) 0.08 (0.02-0.50) K/mm3 Platelet Estimate Adequate (Adequate) % Immature Plt Fraction 4.5 (0.9-11.2) % Schistocytes None seen Sodium 138 (137-145) mmol/L Potassium 4.0 (3.4-5.0) mmol/L Chloride 103 (98-107) mmol/L Carbon Dioxide 26 (22-30) mmol/L Anion Gap 9 (4-12) mmol/L BUN 13 (9-20) mg/dL Creatinine 0.84 (0.7-1.3) mg/dL Estim Creat Clear Calc 246 ml/min Estimated GFR > 60 (59 - ) Glucose 151 H (65-110) mg/dL Calcium 9.2 (8.4-10.2) mg/dL Total Bilirubin 0.4 (0.2-1.3) mg/dL AST 30 (17-59) U/L ALT 40 (6-50) U/L Alkaline Phosphatase 62 (38-126) U/L Troponin I < 0.012 (0.000-0.034) ng/mL Total Protein 8.5 H (6.3-8.2) g/dL Albumin 4.2 (3.5-5.1) g/dL Influenza A (RT-PCR) Negative (Negative) Influenza B (RT-PCR) Negative (Negative) RSV (RT-PCR) Negative (Negative) SARS-CoV-2 RNA (RT-PCR) Negative (Negative) ECG Data EKG #1: ECG completion date: 04/27/25 ECG completion time: 03:45 Interpretation: Normal sinus rhythm rate of 95, normal axis, normal intervals, no acute ST or T-wave changes Discharge Plan Discharge Clinical Impression: Pleurisy Patient Disposition: Home Condition: Stable Instructions: Antibiotic Form, Pleurisy (ED) Additional Instructions: Labs, EKG, chest x-ray showed no evidence of heart damage at this time. You likely have pleurisy caused by a viral infection you have. He received Tylenol ibuprofen for the pain. He also given a prescription for Lidoderm contact this as prescribed. Follow-up with your PCP in the next week for re-evaluation. Return to the ED for any new or worsening symptoms. Patient Language: French Prescriptions: New lidocaine [Lidocan III] 5 % adhesive patch,medicated 1 patch topical DAILY Qty: 15 0RF Rx Instructions: leave on most painful area for up to 12 hrs No Action loratadine [Allergy Relief (loratadine)] 10 mg tablet 10 mg PO DAILY sulfamethoxazole-trimethoprim [Bactrim DS] 800-160 mg tablet 1 tablet PO Q12H Qty: 20 0RF levothyroxine [Unithroid] 150 mcg tablet 150 mcg PO DAILY Qty: 90 0RF Follow-up/Referrals: Lisa Mckeon APRN [Primary Care Provider, Family Practice]
[2025-04-27 05:12] LABS: Hematocrit 43.5 % (42.0-52.0); Hemoglobin 13.5 g/dL (14.0-18.0); Immature Platelet Fraction Pct 4.5 % (0.9-11.2); Mean Corpuscular HGB Conc 31.0 g/dl (32-36); Mean Corpuscular Hemoglobin 26.6 pg (26-34); Mean Corpuscular Volume 85.6 fl (80-100); Platelet Count Result 182 k/mm3 (150-375); Red Blood Count 5.08 M/mm3 (4.6-6.20); White Blood Count 8.8 K/mm3 (4.5-10.0)
[2025-04-27 05:36] LABS: Band Neutrophils Percent 5 % (0-6); Eosinophils Absolute Manual 0.08 K/mm3 (0.02-0.50); Eosinophils Percent Manual 1 % (0-4); Lymphocytes Absolute Manual 0.88 K/mm3 (1.1-4.5); Lymphocytes Percent Manual 10 % (18-44); Monocytes Absolute Manual 0.52 K/mm3 (0.1-0.90); Monocytes Percent Manual 6 % (3-9); Neutrophils Absolute Manual 7.30 K/mm3 (1.3-6.7); Neutrophils Percent Manual 78 % (46-73); Total Cells Counted 100
[2025-04-27 05:37] LABS: Schistocytes None Seen
[2025-04-27 05:43] LABS: Alanine Aminotransferase 40 U/L (6-50); Albumin Level 4.2 g/dL (3.5-5.1); Alkaline Phosphatase 62 U/L (38-126); Anion Gap 9 mmol/L (4-12); Aspartate Amino Transferase 30 U/L (17-59); Bilirubin,Total 0.4 mg/dL (0.2-1.3); Blood Urea Nitrogen 13 mg/dL (9-20); Calcium 9.2 mg/dL (8.4-10.2); Carbon Dioxide 26 mmol/L (22-30); Chloride 103 mmol/L (98-107); Estimated CRCL calculation 246 ml/min; Estimated Glomerular Filt Rate > 60; Glucose 151 mg/dL (65-110); Potassium 4.0 mmol/L (3.4-5.0); Sodium 138 mmol/L (137-145); Total Protein 8.5 g/dL (6.3-8.2)
[2025-04-27 05:55] LABS: Troponin I < 0.012 ng/mL (0.000-0.034)
== END 2025-04-27 06:11 | disposition home or self-care (01) ==
PROVIDERS: Emergency Provider Student in an Organized Health Care Education/Training Program; PCP Nurse Practitioner Family
DX: R09.1 Pleurisy (principal); I10 Essential (primary) hypertension; E03.9 Hypothyroidism, unspecified; F17.210 Nicotine dependence, cigarettes, uncomplicated
CPT/HCPCS: 36415; 71045; 80053; 84484; 85025; 85055; 87637; 93005; 96372; 99284; A9270; J1885

== ENCOUNTER 2025-04-28 09:19 | Emergency (ER) | payer OTHER, SELFPAY ==
--- NOTE | 2025-04-28 09:27 | ED.WOUNDLAC ---
HPI - Wound/Laceration General Chief Complaint: Wound/Laceration Stated Complaint: open wound on leg Source: patient and RN notes reviewed Mode of arrival: ambulatory Limitations: dementia History of Present Illness HPI narrative: 24-year-old male presents with concern for a wound on his right lower leg. He reports the wound has been there for quite some time, he removed a sock and it took some skin with it he has been dealing with the wound since then. He reports he woke up this morning in the leg was red, swollen, painful, he is needing to use a cane due to the pain. He also reports he did not well so we did not go to work. Patient was seen in the emergency room yesterday for an unrelated complaint, he was having chest pain and tightness, he was diagnosed with pleurisy after workup the emergency room. Related Data Home Medications ?Medication ?Instructions ?Recorded ?Confirmed ?Last Taken ?Type loratadine 10 mg tablet (Allergy 10 mg PO DAILY 03/01/25 03/01/25 Unknown History Relief (loratadine)) Allergies Allergy/AdvReac Type Severity Reaction Status Date / Time No Known Allergies Allergy Verified 04/28/25 09:20 Review of Systems Review of Systems: CONSTITUTIONAL: Reports malaise SKIN: Reports redness, swelling, pain of the right lower leg. Denies purulent drainage, vesicles, bullae, numbness, pain beyond proportion All systems reviewed & are unremarkable except as noted in HPI and below PMFSH Past Medical History Medical History Hypothyroidism Impaired fasting glucose Hidradenitis suppurativa Depression Surgical History Surgical History History of incision and drainage infected dog bite Family History Family History Father Alcoholism Grandparent Alcoholism Asthma Depression Cerebrovascular accident Heart disease Grandparent Depression Grandparent Alcoholism Diabetes mellitus Social History Social History Social History: will smoke up to 2 cigarettes per day Smoking status: Current some day smoker Tobacco type: cigarettes Alcohol intake: current Drinks per week: 4 Substance use: current Substance use type: marijuana Occupation/Education: occupation 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 There is no relevant family history pertinent to the presenting complaint Exam Narrative: GENERAL: Nontoxic-appearing and in no acute distress. HEAD: Normocephalic, atraumatic. EYES: PERRLA, conjunctivae clear ENT: Mucous membranes moist. NECK: Supple. No lymphadenopathy CHEST: Clear to auscultation. No respiratory distress. HEART: Regular rate and rhythm. SKIN: Warm, dry. Significant Erythema, induration, tenderness, warmth noted to the right lower leg. No vesicles, bullae, necrosis, ecchymosis, crepitus noted. NEURO: Alert and oriented x3. PSYCH: Normal mood and affect Course Course Emergency Course: Patient is aware of, understands and agrees to treatment plan. Anticipatory guidance given. Patient was offered EMS transfer due to concern for sepsis and patient's low blood pressure, patient refused, signed AMA for refusal of EMS. Patient agrees to proceed directly to the emergency department. Portions of this record may have been created with voice recognition software Level of Care: Express Care Visit Vital Signs Vital signs: Reviewed. Transfer Transfered to: [place] Transportation: Other (Private vehicle, refused EMS) Transfer rationale: Concern for sepsis Accepting physician: Jigna MDM - Wound/Laceration MDM Narrative Medical decision making narrative: Patient is nontoxic appearing and in no acute distress Critical Care Time Critical Care Time Critical Care Time: No Discharge Plan Discharge Clinical Impression: Cellulitis Patient Disposition: Acute Care Hospital Condition: Stable Patient Language: Kinyarwanda Prescriptions: No Action loratadine [Allergy Relief (loratadine)] 10 mg tablet 10 mg PO DAILY lidocaine [Lidocan III] 5 % adhesive patch,medicated 1 patch topical DAILY Qty: 15 0RF Rx Instructions: leave on most painful area for up to 12 hrs levothyroxine [Unithroid] 150 mcg tablet 150 mcg PO DAILY Qty: 90 0RF Follow-up/Referrals: Lisa Mckeon APRN [Primary Care Provider, [facility]] Time of Disposition: 09:47
[2025-04-28 09:36] VITALS: BP 91/38; PULSE 131; RESP 20; TEMP 39.2; O2SAT 95
== END 2025-04-28 09:44 | disposition short-term general hospital (02) ==
PROVIDERS: Emergency Provider Nurse Practitioner; PCP Nurse Practitioner Family
DX: L03.115 Cellulitis of right lower limb (principal); F17.210 Nicotine dependence, cigarettes, uncomplicated; F12.90 Cannabis use, unspecified, uncomplicated; E03.9 Hypothyroidism, unspecified
CPT/HCPCS: 99212; G0463

== ENCOUNTER 2025-04-28 10:02 | Inpatient (IN) | payer OTHER, SELFPAY ==
--- OUTSIDE RECORDS SUMMARY | 2021-09-12 09:30 | XMS_ITS | Continuity of Care Document ---
Author Organization [facility] Address [address] [place] [address] Phone Care Team Providers Care Outplacement Consultant Name Role Phone Ramana AVINASHKan Unavailable Unavailable [...] Encounter [facility], [address], [place], [place], [address] , [place] tel: [phone] [facility] Dental caries, unspecified 2 Ramana Omer. [address], [place], [place], [address], [place]. [phone] Referring Provider: Kan Boles, [address], [place], [address] . tel:[phone] [facility], [address], [place], [place], [address] , [place] tel: [phone] [facility] Encounter for dental exam and cleaning w abnormal findingsDental caries, unspecified 2 No Information [facility], [address], [place], [place], [address] , [place] tel: [phone] [facility] Encounter for dental exam and cleaning w abnormal findings 7 No Information PERIODIC COMPREHENSIVE PREVENTIVE MED REE/M; ESTABLISHED PATIENT; 01-01 [facility], [address], [place], [place], [address] , [place] tel: [phone] [facility] Child Visit (chief complaint) ObesityRoutine infant or child health checkUrinary Tract Infection 3 No Information [facility], [address], [place], [place], [address] , [place] tel: [phone] [facility] Dental examination 3 No Information [facility], [address], [place], [place], [address] , [place] tel: [phone] [facility] Dental examination 3 No Information [facility], [address], [place], [place], [address] , [place] tel: [phone] [facility] Dental examination 3 No Information [facility], [address], [place], [place], [address] , tel: [phone] [facility] Dental examination 3 No Information [facility], [address], [place], [place], [address] , [place] tel: [phone] [facility] No Information 3 No Information [facility], [address], [place], [place], [address] , tel: [phone] [facility] Dental examination Oct- 3 No Information Family History Family Member Type Diagnosis Age At Onset No Information Immunizations Vaccine Date Status Comments Flu (split) (3 yrs or older) administered Source: New Immunization Record MMR administered Source: New Imm unization Record Payers Payer name Insurance type Covered green party ID Savannah berrios(s) D [facility] CI [id number] Social History Type Description Quantity Date Captured Comments Sex Male Smoking Status No Information Chief Complaint And Reason For Visit No Information Reason For Referral Reason For Referral No Information Plan Of Treatment Date Type Action Status Referral Referred To: Andrea Villegas MS RD [address] [place], [address] Ordered: Referral: Andrea Villegas MS RD. Nutrition. Evaluate and treat. ordered Future Order: Lab Order POC Urin alysis, Macroscopic ([id number]), Appointment on: , Sent on: Sent Future Order: Lab Order COMPREHE NSIVE METABOLIC PANEL W/EGFR ([id number]), Appointment on: , Sent on: Sent Future Order: Lab Order HEMOGLOB IN A1c ([id number]), Appointment on: , Sent on: Sent Future Order: Lab Order LIPID PA LIZZETH ([id number]), Appointment on: , Sent on: Sent Future Order: Lab Order POC Urin alysis, Macroscopic ([id number]), Appointment on: , Sent on: Sent Future Order: Lab Order CBC (H/H , RBC, INDICES, WBC, PLT) ([id number]), Appointment on: , Sent on: Sent Future Order: Lab Order POC Urin alysis, Macroscopic ([id number]), Appointment on: , Sent on: Sent History Of Present Illness Encounter Date Complaint History Of Prese nt Illness No Information Functional Status Date Functional Assessmen t No Information Instructions Date Instruction Additional Infor mation No Information Assessments Type Assessment Date No Information Patient Care Teams Name Effective Dates (start - stop) Status Members No Information
[2025-04-28] VITALS (10 sets, daily range): BP systolic 91–126; BP diastolic 42–63; PULSE 110–139; RESP 15–22; TEMP 36.9–39.3; O2SAT 96–98; BMI 81.3
--- NOTE | ~2025-04-28 | XR_ITS ---
EXAMINATION: XR chest 1V portable 05/02/2025 14:02 INDICATION: Increasing cough PROCEDURE: AP portable chest COMPARISON: 04/28/2025 FINDINGS: The lungs are clear. The cardiomediastinal silhouette is within normal limits. There are no pleural effusions. There is no pneumothorax suspected. IMPRESSION: 1: NO ACUTE CARDIOPULMONARY DISEASE. Reviewed, dictated and finalized at location O.
--- NOTE | ~2025-04-28 | XR_ITS ---
EXAM/ PROCEDURE: XR tibia fibula RT 2V - 04/28/2025 11:05 CDT HISTORY: 24 years old Male with DISTAL ANTERIOR TIB-FIB WOUND COMPARISON: None available TECHNIQUE: 5 view(s) FINDINGS/ IMPRESSION: There are no fractures or dislocations.Joint space narrowing, subchondral sclerosis, subchondral cyst formation and osteophyte formation, compatible with mild osteoarthritis. Reviewed, dictated and finalized at location N.
--- NOTE | ~2025-04-28 | XR_ITS ---
EXAM/PROCEDURE: XR chest 1V portable - 04/28/2025 11:05 CDT HISTORY: 24 years old Male with fever TECHNIQUE: Two view(s) of the chest. COMPARISON: None available. FINDINGS: LUNGS/ PLEURA: No focal consolidation. Mild perihilar bronchial wall thickening. HEART/ MEDIASTINUM: Heart appears normal in size. BONES: No acute osseous abnormality. OTHER: Visualized upper abdomen is unremarkable. IMPRESSION: No focal consolidation. Mild perihilar bronchial wall thickening, findings suggestive of respiratory bronchiolitis. Reviewed, dictated and finalized at location N. IMPRESSION: No focal consolidation. Mild perihilar bronchial wall thickening, findings sugg estive of respiratory bronchiolitis.
--- OUTSIDE RECORDS SUMMARY | 2025-04-28 10:15 | XMS_ITS | Encounter Summary ---
Author Organization [facility] Address [address] [place] [address] Care Team Providers Care Associate Director Finance Name Role Phone Ramone Heller MD Unavailable Esperanza Mccabe PA-C Primary Care Provider Judith Camarillo Unavailable [phone] Reason for Visit * Reason Onset Date Comments MEDICATION REFILL 02/03/2023 Encounter Details Date Type Department Care Team (Late st Contact Info) Description 02/03/2023 Refill [facility] - [facility] [address] [place] [address] Esperanza Mccabe PAJaki [address] [address] MEDICATION REFILL Social History Tobacco [...] AM CDT Legal Sex Male 5:42 AM OIL WELL SERVICES FIELD SUPERVISOR Gender Identity Male 03/23/2023 9:05 AM CDT [...] ??? vitamin D, ergocalciferol, (Drisdol) 1.25 MG (83348 UT) capsule 12 capsule 0 Sig: Take 1 (one) capsule by mouth every 7 days No Known Allergies Last Refill:01/06/2023 Qty Dispense:12 # of Refills:0 Last OV:01/02/2023 Next OV:none documented in this encounter Plan of Treatment Not on file documented as of this encounter Visit Diagnoses Not on filedocumented in this encounter Care Teams Associate Director Finance Relationship Specialty Start Date End Date Esperanza Mccabe PA-C [address] [place] [phone] PCP - General Physician Dedicated Owner Operator 02/03/23 Judith Camarillo APRN-SHAFTING CLEANER [address] [place] [address] PCP - Attributed-[facility] [employer] Medicaid STL 08/24/23 12/10/23 Ramone Heller MD [address] [place] [address] Student Resident 02/21/19 documented as of this encounter
--- OUTSIDE RECORDS SUMMARY | 2025-04-28 10:15 | XMS_ITS | Encounter Summary ---
Author Organization [facility] Address [address] [place] [address] Care Team Providers Care Recordist Name Role Phone Ramone Heller MD Unavailable Esperanza Mccabe PA-C Primary Care Provider Judith Camarillo Unavailable [phone] Reason for Visit * Reason Onset Date Comments MEDICATION REFILL 07/15/2023 Encounter Details Date Type Department Care Team (Late st Contact Info) Description 07/15/2023 Refill [facility] [address] [place] [address] Esperanza Mccabe PAJaki [address] [address] MEDICATION REFILL Social History Tobacco [...] AM CDT Legal Sex Male 5:42 AM TUNNEL MINER Gender Identity Male 03/23/2023 9:05 AM CDT [...] on filedocumented in this encounter Care Teams Recordist Relationship Specialty Start Date End Date Esperanza Mccabe PA-C [address] [phone] PCP - General Physician Ekg Manager 02/03/23 Judith Camarillo APRN-HUMAN RESOURCE PROFESSIONAL [address] [place] [phone] PCP - Attributed-[place] [facility] Blue Medicaid ST 08/24/23 12/10/23 Ramone Heller MD [address] [place] [address] Student Resident 02/21/19 documented as of this encounter
--- OUTSIDE RECORDS SUMMARY | 2025-04-28 10:15 | XMS_ITS | Encounter Summary ---
Author Organization [facility] Address [address] [place] [address] Care Team Providers Care Pigs Feet Cleaner Name Role Phone Tyshawn Barnes MD Primary Care Provider [phone] Adore Castillo DO Unavailable [phone] Ramone Heller MD Unavailable [phone] Rosetta Wall DO Primary Care Provider Esperanza Mccabe PA-C Primary Care Provider Judith Camarillo APRN-BOOKIE Unavailable [phone] Reason for Visit * Reason Onset Date Comments Refill Request 04/19/2018 Encounter Details Date Type Department Care Team (Late st Contact Info) Description 04/19/2018 Telephone [facility] [address] [place] [address] Tyshawn Barnes MD [address] [place] [address] Refill Request Social History Tobacco Use Types Packs/Day Years Used Date Smoking Tobacco: Never Smokeless Tobacco: Never Alcohol Use Standard Drinks/Week Comments No 0 (1 standard drink = 0.6 oz pur e alcohol) Sex and Gender Information Value Date Recorded Sex Assigned at Male 03/23/2023 9:05 AM CDT Legal Sex Male 5:42 AM COMPLIANCE QUALITY PERFORMANCE ANALYST Gender Identity Male 03/23/2023 9:05 AM CDT [...] child check up: 11/02/17 Pharmacy verified in [facility]. No future appointments. documented in this encounter Plan of Treatment Not on file documented as of this encounter Visit Diagnoses Not on filedocumented in this encounter Care Teams Pigs Feet Cleaner Relationship Specialty Start Date End Date Tyshawn Barnes MD [address] [place] [address] PCP - General Pediatrics 11/07/14 10/20/22 Rosetta Wall DO [facility] [address] [facility] [place] [phone] PCP - General 10/21/22 02/02/23 Esperanza Mccabe, PAGamalC [address] [address] PCP - General Physician Etl Programmer 02/03/23 Judith Camarillo, THEATER USHER-BOOKIE [address] [place] [phone] PCP - Attributed-[place] [facility] [employer] Medicaid STL 08/24/23 12/10/23 Adore Castillo DO [address] [place] [phone] Student Resident 02/06/16 02/20/19 Ramone Heller MD [address] [place] [address] Student Resident 02/21/19 documented as of this encounter
--- OUTSIDE RECORDS SUMMARY | 2025-04-28 10:15 | XMS_ITS | Clinical Summary ---
Author Organization [facility] Address [address] [facility] [place] [address] Care Team Providers Care Car Distributor Name Role Phone Ramone Heller MD Unavailable [phone] Esperanza Mccabe PA-C Primary Care Provider [phone] Source Comments [facility],non-owned Affiliates and Associated Physician Practices is amultiple site organization consisting of ambulatory clinics and hospital sitesin [place], [place], [place] and [place]. This disclosure is being madepursuant to the Care Everywhere program and may not contain all information available regarding this patient. Last updated 18.[facility] Allergies No known active allergies Medications * [...] Active vitamin D, ergocalciferol, (Drisdol) 1.25 MG (31648 UT) capsule Take 1 (one) capsule by [...] call Jerrell directly at his cell phone [phone]; afternoon hours will work best for him. [...] today Assessment & Plan (10/07/2016 7:39 PM MOTOCROSS RACER): TSH and T4 again at near normal levels Vitamin D deficiency 07/01/2016 Assessment & Plan (11/02/2017 4:59 PM CDT): Vitamin D level of 7.43 on 10/07/2016. On Vit D 2000U daily. Plan: - Will recheck Vitamin D level today Assessment & Plan (10/07/2016 7:40 PM MOTOCROSS RACER): Low Vitamin D persists. Continue Cholecalciferol 2000 [...] today Assessment & Plan (10/07/2016 7:39 PM MOTOCROSS RACER): Spent 30 minutes counseling re: Diet Exercise Need for family buy-in Use of calorie counting apps RTO 3-4 months for followup. Assessment & Plan (07/10/2016 3:29 PM MOTOCROSS RACER): Spent 20 minutes counseling re: Diet Exercise Need for family buy-in Use of calorie counting apps RTO 3 months for followup. Assessment & Plan (12/22/2014 2:57 PM CDT): Had long discussion (approx 45 min) of diet, exercise. Add [employer] Resources[employer] luz marina to smartphone. Schedule at least [...] arise. Assessment & Plan (07/10/2016 3:29 PM MOTOCROSS RACER): Jerrell Llamas is here for his adolescent [...] AM CDT Legal Sex Male 5:42 AM MOTOCROSS RACER Gender Identity Male 03/23/2023 9:05 AM CDT [...] Reactive Non Reactive 12/08/2017 8:[address]T [facility] HBsAg Non Reactive Non Reactive 12/08/2017 8:[address]T [facility] HBc Antibody IgM Non Reactive Non Reactive 12/08/2017 8:[address] AM CDT [facility] HCV Antibody Screen Non Reactive Non Reactive 12/08/2017 8:[address] [facility] HCV S/C Ratio 0.07 0.00 - 0.79 12/08/2017 8:41 AM T [facility] Comment: Nzhgkc-nm-mgkziq ratio (S/CO) <0.80: Non Reactive Blood BLOOD SPECIMEN / Unknown Lab Venipuncture / Unknown 12/07/2017 10:49 AM CDT 12/07/2017 11:20 AM CDT Narrative [facility] - 12/08/2017 8:41 AM CDT Non Reactive - Antibodies to Hepatitis C virus (HCV) were not detected, result does not exclude early acute HCV infection. Non Reactive - Antibodies to Hepatitis C virus (HCV) were not detected, result does not exclude early acute HCV infection. us Fanny Miller BLENDING TECHNICIAN-VP CLINICAL LAB - CHEMISTRY O RDERABLES Final Result [facility] [address] [place] [address] from Last 3 Months or Most Recently Relevant to Health Maintenance Insurance MED[place]ID [place] Advance Directives * Full Code (Latest Code Status on File) Date Activated Date Inactivated Comments 05/12/2017 8:24 PM 05/14/2017 2:30 PM Care Teams Car Distributor Relationship Specialty Start Date End Date Esperanza Mccabe PA-C [address] [facility] [address] [place] [address] PCP - General Physician Counter Waitress/Waiter 02/03/23 Ramone Heller MD [address] [place] [address] Student Resident 02/21/19
--- OUTSIDE RECORDS SUMMARY | 2025-04-28 10:15 | XMS_ITS | Encounter Summary ---
Author Organization [facility] Address [address] [address] Care Team Providers Care Patient Observer Name Role Phone Ramone Heller MD Unavailable Esperanza Mccabe PA-C Primary Care Provider Reason for Visit * Reason Onset Date Comments MEDICATION REFILL 07/13/2024 Encounter Details Date Type Department Care Team (Late st Contact Info) Description 07/13/2024 Refill [facility] [address] [place] [address] Esperanza Mccabe PA-C [address] [address] MEDICATION REFILL Social History Tobacco [...] AM CDT Legal Sex Male 5:42 AM AUTOMOTIVE LIGHT MECHANIC Gender Identity Male 03/23/2023 9:05 AM CDT [...] on filedocumented in this encounter Care Teams Patient Observer Relationship Specialty Start Date End Date Esperanza Mccabe PAGamalC [address] [address] PCP - General Physician Television Journalist 02/03/23 Ramone Heller MD [facility] [place] [address] Student Resident 02/21/19 documented as of this encounter
--- OUTSIDE RECORDS SUMMARY | 2025-04-28 10:15 | XMS_ITS | Clinical Summary ---
Author Organization [facility] Address [address] [place] [address] Phone Care Team Providers Care Trial Mgr Name Role Phone Unavailable Primary Care Provider Unavailabl e Social History Tobacco Use Types Packs/Day Years Used Date Smoking Tobacco: Never Assessed Sex and Gender Information Value Date Recorded Sex Assigned at Not on file Legal Sex Male 1:21 PM MARKETING EDITOR Gender Identity Not on file Sexual Orientation Not on file Plan of Treatment Health Maintenance Due Date Last Done Comments Hepatitis C Virus (HCV) Screening 2002 TdaP Immunization 2002 Human Papillomavirus (HPV) Immunization (1 - Male 3-dose series) 2017 Meningococcal B Immunization (1 of 2 - Standard) 2018 Hepatitis B Immunization (1 of 3 - 19+ 3-dose series) 2021 SARS-COV-2 Immunization (1 - 2023- season) 2024 Influenza Immunization (#1) 2025 Respiratory Syncytial Virus (RSV) Immunization (Adult) (1 - 1-dose 75+ series) 2077 Meningococcal Immunization (ACWY) Aged Out No longer eligible based on patient's age to complete this topic Pneumococcal Immunization Combined Aged Out No longer eligible based on patient's age to complete this topic Rotavirus Immunization Aged Out No lo nger eligible based on patient's age to complete this topic
--- OUTSIDE RECORDS SUMMARY | 2025-04-28 10:15 | XMS_ITS | Encounter Summary ---
Author Organization [facility] Address [address] [place] [address] Care Team Providers Care Jail Manager Name Role Phone Ramone Heller MD Unavailable Esperanza Mccabe PA-C Primary Care Provider Judith Camarillo APRN-DANIEL Unavailable [phone] Reason for Visit * Reason Onset Date Comments MEDICATION REFILL 03/05/2023 States it need s updated TSH and BMP Encounter Details Date Type Department Care Team (Late st Contact Info) Description 03/05/2023 Refill [facility] - [facility] [address] [place] [address] Esperanza Mccabe, PA-C [address] [address] MEDICATION REFILL (States it needs [...] AM CDT Legal Sex Male 5:42 AM SENIOR STRATEGY ANALYST Gender Identity Male 03/23/2023 9:05 AM [...] on filedocumented in this encounter Care Teams Jail Manager Relationship Specialty Start Date End Date Esperanza Mccabe PA-C [address] [place] [phone] PCP - General Physician Tawer 02/03/23 Judith Camarillo APRN-HUMAN RESOURCES DEPARTMENT SUPERVISOR [address] [place] [phone] PCP - Attributed-[place] Healthy Blue Medicaid STL 08/24/23 12/10/23 Ramone Heller MD [address] [place] [address] Student Resident 02/21/19 documented as of this encounter
--- OUTSIDE RECORDS SUMMARY | 2025-04-28 10:15 | XMS_ITS | Encounter Summary ---
Author Organization [facility] Address [address] [place] [address] Care Team Providers Care Ribbon Hand Name Role Phone Ramone Heller MD Unavailable [phone] Esperanza Mccabe PA-C Primary Care Provider Judith Camarillo Unavailable [phone] Reason for Visit * Reason Onset Date Comments MEDICATION REFILL 10/21/2023 Encounter Details Date Type Department Care Team (Late st Contact Info) Description 10/21/2023 Refill [facility] [address] [place] [address] Esperanza Mccabe PAJaki [address] [address] MEDICATION REFILL Social History Tobacco [...] AM CDT Legal Sex Male 5:42 AM DENTAL CERAMIST HELPER Gender Identity Male 03/23/2023 9:05 AM CDT [...] Esperanza Mccabe PA-C - 10/23/2023 5:27 PM DENTAL CERAMIST HELPER NEEDS APPT prior to any further refills after today's refills. AL CERAMIST HELPER documented in this encounter Plan of Treatment Not on file documented as of this encounter Visit Diagnoses Not on filedocumented in this encounter Care Teams Ribbon Hand Relationship Specialty Start Date End Date Esperanza Mccabe PA-C [address] [facility] [address] [place] [address] PCP - General Physician Forms Designer 02/03/23 Judith Camarillo APRN-GLAZIER SUPERVISOR [address] [place] [address] PCP - Attributed-[place] Healthy Blue Medicaid STL 08/24/23 12/10/23 Ramone Heller MD [address] [place] [address] Student Resident 02/21/19 documented as of this encounter
--- OUTSIDE RECORDS SUMMARY | 2025-04-28 10:15 | XMS_ITS | Encounter Summary ---
Author Organization [facility] Address [address] [facility] [place] [address] Care Team Providers Care Customer Management Specialist Name Role Phone Ramone Heller MD Unavailable Esperanza Mccabe PA-C Primary Care Provider Reason for Visit * Reason Onset Date Comments MEDICATION REFILL 01/20/2024 Encounter Details Date Type Department Care Team (Late st Contact Info) Description 01/20/2024 Refill [facility] [address] [place] [address] Esperanza Mccabe PA-C [address] [facility] [address] [place] [address] MEDICATION REFILL Social History Tobacco [...] AM CDT Legal Sex Male 5:42 AM BITUMEN PLANT OPERATOR Gender Identity Male 03/23/2023 9:05 AM [...] on filedocumented in this encounter Care Teams Customer Management Specialist Relationship Specialty Start Date End Date Esperanza Mccabe PAGamalC [address] [address] PCP - General Physician Newspaper Inserter 02/03/23 Ramone Heller MD [facility] [place] [address] Student Resident 02/21/19 documented as of this encounter
--- OUTSIDE RECORDS SUMMARY | 2025-04-28 10:15 | XMS_ITS | Encounter Summary ---
Author Organization [facility] Address [address] [place] [address] Care Team Providers Care Architectural Practice Manager Name Role Phone Ramone Heller MD Unavailable Esperanza Mccabe PA-C Primary Care Provider [phone] Reason for Visit * Reason Onset Date Comments MEDICATION REFILL 08/21/2024 Encounter Details Date Type Department Care Team (Late st Contact Info) Description 08/21/2024 Refill [facility] [address] [place] [address] Esperanza Mccabe PA-C [address] [address] MEDICATION REFILL Social History Tobacco [...] AM CDT Legal Sex Male 5:42 AM APPLICATION SUPPORT ENGINEER Gender Identity Male 03/23/2023 9:05 AM CDT [...] Esperanza Mccabe PA-C - 08/29/2024 12:39 PM APPLICATION SUPPORT ENGINEER He needs to see me IN PERSON prior to any refills. If he makes an appointment, I can prescribe enough to get him to that appointment. I saw him last 07/2023, by video, and asked him then to follow up ERASTO in person. ICATION SUPPORT ENGINEER * Telephone Encounter - Kaley Bonilla - [...] 1 (one) tablet by mouth once daily ICATION SUPPORT ENGINEER documented in this encounter Plan of Treatment Not on file documented as of this encounter Visit Diagnoses Not on filedocumented in this encounter Care Teams Architectural Practice Manager Relationship Specialty Start Date End Date Esperanza Mccabe PA-C [address] [facility] [address] [place] [phone] PCP - General Physician Hazardous Materials Tanker Driver 02/03/23 Ramone Heller MD [address] [place] [address] Student Resident 02/21/19 documented as of this encounter
--- OUTSIDE RECORDS SUMMARY | 2025-04-28 10:16 | XMS_ITS | Encounter Summary ---
Author Organization [facility] Address [address] [facility] [place] [address] Care Team Providers Care Bellows Charger Assembler Name Role Phone Tyshawn Barnes MD Primary Care Provider [phone] Adore Castillo DO Unavailable [phone] Ramone Heller MD Unavailable [phone] Rosetta Wall DO Primary Care Provider [phone] Esperanza Mccabe PA-C Primary Care Provider Judith Camarillo APRN-NEUROLOGY PROFESSOR Unavailable [phone] Encounter Details Date Type Department Care Team (Late st Contact Info) Description 01/28/2019 Telephone [facility] Pediatrics - Endocrinology [facility] [facility] [address] Angelina Casillas DO [address] [place] [address] Social History Tobacco Use Types Packs/Day Years Used Date Smoking Tobacco: Never Smokeless Tobacco: Never Alcohol Use Standard Drinks/Week Comments No 0 (1 standard drink = 0.6 oz pur e alcohol) Sex and Gender Information Value Date Recorded Sex Assigned at Male 03/23/2023 9:05 AM CDT Legal Sex Male 5:42 AM CNC SERVICE ENGINEER Gender Identity Male 03/23/2023 9:05 AM [...] on filedocumented in this encounter Care Teams Bellows Charger Assembler Relationship Specialty Start Date End Date Tyshawn Barnes MD [address] [place] [address] PCP - General Pediatrics 11/07/14 10/20/22 Rosetta Wall DO [address] OF [facility] [place] [phone] PCP - General 10/21/22 02/02/23 Esperanza Mccabe PA-C [address] [phone] PCP - General Physician Driver Trainer 02/03/23 Judith Camarillo APRN-NEUROLOGY PROFESSOR [address] [place] [address] PCP - Attributed-[place] Healthy Blue Medicaid STL 08/24/23 12/10/23 Adore Castillo DO [address] [place] [phone] Student Resident 02/06/16 02/20/19 Ramone Heller MD [address] [place] [id number] Student Resident 02/21/19 documented as of this encounter
--- OUTSIDE RECORDS SUMMARY | 2025-04-28 10:16 | XMS_ITS | Clinical Summary ---
Author Organization [facility] Address [address] [place] [phone] Care Team Providers Care Academic Affairs Coordinator Name Role Phone Gordon Josue MD Primary Care Provider [phone] Allergies No known active allergies Medications Wal-Fex [...] of Treatment Not on file Care Teams Academic Affairs Coordinator Relationship Specialty Start Date End Date Gordon Josue MD PCP - General Emergency Medicine 12/24/20
--- OUTSIDE RECORDS SUMMARY | 2025-04-28 10:16 | XMS_ITS | Encounter Summary ---
Author Organization [facility] Address [address] [place] [address] Care Team Providers Care Faculty Administrator Name Role Phone Tyshawn Barnes MD Primary Care Provider [phone] Adore Castillo DO Unavailable [phone] Ramone Heller MD Unavailable [phone] Rosetta Wall DO Primary Care Provider Esperanza Mccabe PA-C Primary Care Provider Judith Camarillo APRN-SAND CLEANING MACHINE OPERATOR Unavailable [phone] Reason for Visit * Reason Onset Date Comments Concerns 10/30/2017 Encounter Details Date Type Department Care Team (Late st Contact Info) Description 10/30/2017 Telephone [facility] [address] [place] [address] Tyshawn Barnes MD [address] [place] [address] Concerns Social History Tobacco Use Types Packs/Day Years Used Date Smoking Tobacco: Never Smokeless Tobacco: Never Alcohol Use Standard Drinks/Week Comments No 0 (1 standard drink = 0.6 oz pur e alcohol) Sex and Gender Information Value Date Recorded Sex Assigned at Male 03/23/2023 9:05 AM CDT Legal Sex Male 5:42 AM BAIT PAINTER Gender Identity Male 03/23/2023 9:05 AM CDT [...] already spoke to confirm appt next 11/02. PAINTER * Telephone Encounter - Cheli Castillo - [...] will call back at their earliest convenience. PAINTER documented in this encounter Plan of Treatment Not on file documented as of this encounter Visit Diagnoses Not on filedocumented in this encounter Care Teams Faculty Administrator Relationship Specialty Start Date End Date Tyshawn Barnes MD [address] [place] [phone] PCP - General Pediatrics 11/07/14 10/20/22 Rosetta Wall DO [address] [place] [address] OF [facility] [place] [phone] PCP - General 10/21/22 02/02/23 Esperanza Mccabe PA-C [address] [phone] PCP - General Physician Player Development Executive 02/03/23 Judith Camarillo APRN-SAND CLEANING MACHINE OPERATOR [address] [place] [phone] PCP - [facility] Blue Medicaid ST 08/24/23 12/10/23 Adore Castillo DO [address] [place] [phone] Student Resident 02/06/16 02/20/19 Ramone Heller MD [address] [place] [address] Student Resident 02/21/19 documented as of this encounter
--- NOTE | 2025-04-28 10:40 | ECG_ITS ---
Test Date: 2025-04-28 10:50:30 Measurements Intervals [place] Rate: 116 P: 22 NJ: 124 QRS: 35 QRSD: 89 T: 23 QT: 292 QTc: 407 Interpretive Statements SINUS TACHYCARDIA NONSPECIFIC T-WAVE ABNORMALITY ABNORMAL RHYTHM ECG Compared to ECG 04/27/2025 03:45:31 T-wave abnormality now present Sinus rhythm no longer present Electronically Signed On 04-28-2025 12:43:09 CDT by Pollo Aparicio M.D.
--- OUTSIDE RECORDS SUMMARY | 2025-04-28 10:42 | XMS_ITS | Clinical Summary ---
Author Organization [facility] Address [address] [facility] [place] [address] Phone Care Team Providers Care Machinist/Machine Builder Name Role Phone Unavailable Primary Care Provider Unavailabl e Social History Tobacco Use Types Packs/Day Years Used Date Smoking Tobacco: Never Assessed Sex and Gender Information Value Date Recorded Sex Assigned at Not on file Legal Sex Male 1:21 PM BARNWORKER GROOM Gender Identity Not on file Sexual Orientation [...]
--- OUTSIDE RECORDS SUMMARY | 2025-04-28 10:42 | XMS_ITS | Encounter Summary ---
Author Organization [facility] Address [address] [facility] [place] [address] Care Team Providers Care Senior Web Services Developer Name Role Phone Tyshawn Barnes MD Primary Care Provider [phone] Adore Castillo DO Unavailable [phone] Ramone Heller MD Unavailable [phone] Rosetta Wall DO Primary Care Provider Esperanza Mccabe PA-C Primary Care Provider [phone] Judith Camarillo APRN-ELECTRICAL APPLIANCE MECHANIC Unavailable [phone] Reason for Visit * Reason Onset Date Comments Concerns 10/30/2017 Encounter Details Date Type Department Care Team (Late st Contact Info) Description 10/30/2017 Telephone [facility] [address] [place] [address] Tyshawn Barnes MD [address] [place] [address] Concerns Social History Tobacco Use Types Packs/Day Years Used Date Smoking Tobacco: Never Smokeless Tobacco: Never Alcohol Use Standard Drinks/Week Comments No 0 (1 standard drink = 0.6 oz pur e alcohol) Sex and Gender Information Value Date Recorded Sex Assigned at Male 03/23/2023 9:05 AM CDT Legal Sex Male 5:42 AM SAP SECURITY CONSULTANT Gender Identity Male 03/23/2023 9:05 AM CDT [...] already spoke to confirm appt next 11/02. SECURITY CONSULTANT * Telephone Encounter - Cheli Castillo - [...] will call back at their earliest convenience. SECURITY CONSULTANT documented in this encounter Plan of Treatment Not on file documented as of this encounter Visit Diagnoses Not on filedocumented in this encounter Care Teams Senior Web Services Developer Relationship Specialty Start Date End Date Tyshawn Barnes MD [address] [place] [phone] PCP - General Pediatrics 11/07/14 10/20/22 Rosetta Wall DO [address] [place] [address] OF [facility] [place] [phone] PCP - General 10/21/22 02/02/23 Esperanza Mccabe PA-C [address] [phone] PCP - General Physician Paper Steamer 02/03/23 Judith Camarillo APRN-ELECTRICAL APPLIANCE MECHANIC [address] [place] [phone] [facility] - [facility] ST 08/24/23 12/10/23 Adore Castillo DO [address] [place] [phone] Student Resident 02/06/16 02/20/19 Ramone Heller MD [address] [place] [address] Student Resident 02/21/19 documented as of this encounter
--- OUTSIDE RECORDS SUMMARY | 2025-04-28 10:42 | XMS_ITS | Encounter Summary ---
Author Organization [facility] Address [address] [facility] [place] [address] Care Team Providers Care Decaler Name Role Phone Ramone Heller MD Unavailable Esperanza Mccabe PA-C Primary Care Provider Judith Camarillo Unavailable [phone] Reason for Visit * Reason Onset Date Comments MEDICATION REFILL 10/21/2023 Encounter Details Date Type Department Care Team (Late st Contact Info) Description 10/21/2023 Refill [facility] - [facility] Medicine [address] [place] [address] Esperanza Mccabe PAJaki [address] [address] MEDICATION REFILL Social History Tobacco [...] AM CDT Legal Sex Male 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 TAB DEALER documented in this encounter Plan of Treatment Not on file documented as of this encounter Visit Diagnoses Not on filedocumented in this encounter Care Teams Decaler Relationship Specialty Start Date End Date Esperanza Mccabe PA-C [address] [facility] [address] [place] [address] PCP - General Physician Auto Painter Helper 02/03/23 Judith Camarillo APRN-HEAD USHER [address] [place] [address] PCP - Attributed-[place] Healthy Blue Medicaid STL 08/24/23 12/10/23 Ramone Heller MD [address] [place] [address] Student Resident 02/21/19 documented as of this encounter
--- OUTSIDE RECORDS SUMMARY | 2025-04-28 10:42 | XMS_ITS | Encounter Summary ---
Author Organization [facility] Address [address] [facility] [place] [address] Care Team Providers Care Child Care Provider Name Role Phone Ramone Heller MD Unavailable Esperanza Mccabe PA-C Primary Care Provider Judith Camarillo Unavailable [phone] Reason for Visit * Reason Onset Date Comments MEDICATION REFILL 07/15/2023 Encounter Details Date Type Department Care Team (Late st Contact Info) Description 07/15/2023 Refill [facility] - [facility] Medicine [address] [place] [address] Esperanza Mccabe PAJaki [address] [address] MEDICATION REFILL Social History Tobacco [...] AM CDT Legal Sex Male 5:42 AM HEAD SCORER Gender Identity Male 03/23/2023 9:05 AM CDT Sexual Orientation Bisexual 03/23/2023 9: 05 AM CDT documented as of this encounter Functional Status * Is person deaf or have serious hearing difficulty? Answer Date of Assessment Author No 05/12/2017 8:57 PM CDT Gay Conley RN * Is person blind or have serious difficulty seeing? Answer Date of Assessment Author No 05/12/2017 8:57 PM CDT Gya Conley RN * Does person have serious [...] on filedocumented in this encounter Care Teams Child Care Provider Relationship Specialty Start Date End Date Esperanza Mccabe PA-C [address] [phone] PCP - General Physician Machine Set Up Operator Paper Goods 02/03/23 Judith Camarillo APRN-SCALP TREATMENT OPERATOR [address] [place] [phone] PCP - Attributed-[place] Healthy Blue Medicaid ST 08/24/23 12/10/23 Ramone Heller MD [address] [place] [address] Student Resident 02/21/19 documented as of this encounter
--- OUTSIDE RECORDS SUMMARY | 2025-04-28 10:42 | XMS_ITS | Encounter Summary ---
Author Organization [facility] Address [address] [place] [address] Care Team Providers Care Hat Band Attacher Name Role Phone Ramone Heller MD Unavailable Esperanza Mccabe PA-C Primary Care Provider [phone] Reason for Visit * Reason Onset Date Comments MEDICATION REFILL 01/20/2024 Encounter Details Date Type Department Care Team (Late st Contact Info) Description 01/20/2024 Refill [facility] Medicine [address] [place] [address] Esperanza Mccabe PA-C [address] [facility] [address] [place] [address] MEDICATION REFILL Social History Tobacco [...] AM CDT Legal 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
--- OUTSIDE RECORDS SUMMARY | 2025-04-28 10:42 | XMS_ITS | Encounter Summary ---
Author Organization [facility] Address [address] [facility] [place] [address] Care Team Providers Care Wheel Adjuster Name Role Phone Ramone Heller MD Unavailable Esperanza Mccabe PA-C Primary Care Provider Reason for Visit * Reason Onset Date Comments MEDICATION REFILL 07/13/2024 Encounter Details Date Type Department Care Team (Late st Contact Info) Description 07/13/2024 Refill [facility] Medicine [address] [place] [address] Esperanza Mccabe PA-C [address] [address] MEDICATION REFILL Social History Tobacco [...] AM CDT Legal 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
--- OUTSIDE RECORDS SUMMARY | 2025-04-28 10:42 | XMS_ITS | Encounter Summary ---
Author Organization [facility] Address [address] [facility] [facility] [place] [address] Care Team Providers Care Quantitative Equity Head Name Role Phone Ramone Heller MD Unavailable [phone] Esperanza Mccabe PA-C Primary Care Provider Judith Camarillo APRN-DANIEL Unavailable [phone] Reason for Visit * Reason Onset Date Comments MEDICATION REFILL 03/05/2023 States it need s updated TSH and BMP Encounter Details Date Type Department Care Team (Late st Contact Info) Description 03/05/2023 Refill [facility] Medicine [address] [place] [address] Esperanza Mccabe, PA-C [address] [address] MEDICATION REFILL (States it needs [...] AM CDT Legal 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
--- OUTSIDE RECORDS SUMMARY | 2025-04-28 10:42 | XMS_ITS | Encounter Summary ---
Author Organization [facility] Address [address] [place] [address] Care Team Providers Care Button Decorating Machine Operator Name Role Phone Ramone Heller MD Unavailable Esperanza Mccabe PA-C Primary Care Provider Reason for Visit * Reason Onset Date Comments MEDICATION REFILL 08/21/2024 Encounter Details Date Type Department Care Team (Late st Contact Info) Description 08/21/2024 Refill [facility] - Family Medicine [address] [place] [address] Esperanza Mccabe PA-C [address] [address] MEDICATION REFILL Social History Tobacco [...] AM CDT Legal Sex Male 5:42 AM BILLING CLINICIAN Gender Identity Male 03/23/2023 9:05 AM CDT [...] Esperanza Mccabe PA-C - 08/29/2024 12:39 PM BILLING CLINICIAN He needs to see me IN PERSON prior to any refills. If he makes an appointment, I can prescribe enough to get him to that appointment. I saw him last 07/2023, by video, and asked him then to follow up ERASTO in person. ING CLINICIAN * Telephone Encounter - Kaley Bonilla - [...] 1 (one) tablet by mouth once daily ING CLINICIAN documented in this encounter Plan of Treatment Not on file documented as of this encounter Visit Diagnoses Not on filedocumented in this encounter Care Teams Button Decorating Machine Operator Relationship Specialty Start Date End Date Esperanza Mccabe PA-C [address] [facility] [address] [place] [phone] PCP - General Physician Accounts Supervisor 02/03/23 Ramone Heller MD [address] [place] [address] Student Resident 02/21/19 documented as of this encounter
--- OUTSIDE RECORDS SUMMARY | 2025-04-28 10:42 | XMS_ITS | Encounter Summary ---
Author Organization [facility] Address [address] [place] [address] Care Team Providers Care Barrel Drainer Name Role Phone Ramone Heller MD Unavailable Esperanza Mccabe PA-C Primary Care Provider Judith Camarillo Unavailable [phone] Reason for Visit * Reason Onset Date Comments MEDICATION REFILL 02/03/2023 Encounter Details Date Type Department Care Team (Late st Contact Info) Description 02/03/2023 Refill [facility] - Family Medicine [address] [place] [address] Esperanza Mccabe PAJaki [address] [address] MEDICATION REFILL Social History Tobacco [...] AM CDT Legal 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 vitamin D, ergocalciferol, (Drisdol) 1.25 MG (25483 UT) capsule 12 capsule 0 Sig: Take 1 (one) capsule by mouth every 7 days No Known Allergies Last Refill:01/06/2023 Qty Dispense:12 # of Refills:0 Last OV:01/02/2023 Next OV:none documented in this encounter Plan of Treatment Not on file documented as of this encounter Visit Diagnoses Not on filedocumented in this encounter Care Teams Barrel Drainer Relationship Specialty Start Date End Date Esperanza Mccabe PA-C [address] [facility] [address] [place] [phone] PCP - General Physician Marketing And Public Relations Manager 02/03/23 Judith Camarillo APRN-DATA ANALYTICS SPECIALIST [address] [place] [address] PCP - Attributed-[place] [employer] Medicaid STL 08/24/23 12/10/23 Ramone Heller MD [address] [place] [address] Student Resident 02/21/19 documented as of this encounter
--- OUTSIDE RECORDS SUMMARY | 2025-04-28 10:42 | XMS_ITS | Encounter Summary ---
Author Organization [facility] Address [address] [place] [address] Care Team Providers Care City Auditor Name Role Phone Tyshwan Barnes MD Primary Care Provider [phone] Adore Castillo DO Unavailable [phone] Ramone Heller MD Unavailable [phone] Rosetta Wall DO Primary Care Provider Esperanza Mccabe PA-C Primary Care Provider Judith Camarillo APRN-ON SITE PROPERTY MANAGER Unavailable [phone] Encounter Details Date Type Department Care Team (Late st Contact Info) Description 01/28/2019 Telephone [facility] Pediatrics - Endocrinology [facility] [place] [address] Angelina Casillas DO [address] [place] [address] Social History Tobacco Use Types Packs/Day Years Used Date Smoking Tobacco: Never Smokeless Tobacco: Never Alcohol Use Standard Drinks/Week Comments No 0 (1 standard drink = 0.6 oz pur e alcohol) Sex and Gender Information Value Date Recorded Sex Assigned at Male 03/23/2023 9:05 AM CDT Legal Sex Male 5:42 AM HAM MARKER Gender Identity Male 03/23/2023 9:05 AM CDT [...] on filedocumented in this encounter Care Teams City Auditor Relationship Specialty Start Date End Date Tyshawn Barnes MD [address] [place] [address] PCP - General Pediatrics 11/07/14 10/20/22 Rosetta Wall DO [address] [facility] [place] [phone] PCP - General 10/21/22 02/02/23 Esperanza Mccabe PA-C [address] [phone] PCP - General Physician Order Make Up Clerk 02/03/23 Judith Camarillo APRN-ON SITE PROPERTY MANAGER [address] [place] [address] PCP - Attributed-[place] [employer] Medicaid STL 08/24/23 12/10/23 Adore Castillo DO [address] [place] [phone] Student Resident 02/06/16 02/20/19 Ramone Heller MD [address] [place] [id number] Student Resident 02/21/19 documented as of this encounter
--- OUTSIDE RECORDS SUMMARY | 2025-04-28 10:42 | XMS_ITS | Clinical Summary ---
Author Organization [facility] Address [address] [facility] [place] [address] Care Team Providers Care Supervisor Knitting Name Role Phone Ramone Heller MD Unavailable [phone] Esperanza Mccabe PA-C Primary Care Provider [phone] Source Comments [facility],non-owned Affiliates and Associated Physician Practices is amultiple site organization consisting of ambulatory clinics and hospital sitesin [place], [place], [place] and [place]. This disclosure is being madepursuant to the Care Everywhere program and may not contain all information available regarding this patient. Last updated 18.[facility] Allergies No known active allergies Medications * [...] Active vitamin D, ergocalciferol, (Drisdol) 1.25 MG (53120 UT) capsule Take 1 (one) capsule by [...] call Jerrell directly at his cell phone [phone]; afternoon hours will work best for him. [...] today Assessment & Plan (10/07/2016 7:39 PM STUDENT LIFE VICE PRESIDENT): TSH and T4 again at near normal levels Vitamin D deficiency 07/01/2016 Assessment & Plan (11/02/2017 4:59 PM CDT): Vitamin D level of 7.43 on 10/07/2016. On Vit D 2000U daily. Plan: - Will recheck Vitamin D level today Assessment & Plan (10/07/2016 7:40 PM STUDENT LIFE VICE PRESIDENT): Low Vitamin D persists. Continue Cholecalciferol 2000 [...] today Assessment & Plan (10/07/2016 7:39 PM STUDENT LIFE VICE PRESIDENT): Spent 30 minutes counseling re: Diet Exercise Need for family buy-in Use of calorie counting apps RTO 3-4 months for followup. Assessment & Plan (07/10/2016 3:29 PM STUDENT LIFE VICE PRESIDENT): Spent 20 minutes counseling re: Diet Exercise Need for family buy-in Use of calorie counting apps RTO 3 months for followup. Assessment & Plan (12/22/2014 2:57 PM CDT): Had long discussion (approx 45 min) of diet, exercise. Add [employer] luz marina to smartphone. Schedule at least [...] arise. Assessment & Plan (07/10/2016 3:29 PM STUDENT LIFE VICE PRESIDENT): Jerrell Llamas is here for his adolescent [...] AM CDT Legal Sex Male 5:42 AM STUDENT LIFE VICE PRESIDENT Gender Identity Male 03/23/2023 9:05 AM CDT [...] Reactive Non Reactive 12/08/2017 8:41 AM CDT [facility] HBsAg Non Reactive Non Reactive 12/08/2017 8:41 AM CDT [facility] HBc Antibody IgM Non Reactive Non Reactive 12/08/2017 8:41 AM CDT [facility] HCV Antibody Screen Non Reactive Non Reactive 12/08/2017 8:41 AM T [facility] HCV S/C Ratio 0.07 0.00 - 0.79 12/08/2017 8:41 AM T [facility] Comment: Qrwkqs-lx-zrdbzc ratio (S/CO) <0.80: Non Reactive Blood BLOOD SPECIMEN / Unknown Lab Venipuncture / Unknown 12/07/2017 10:49 AM CDT 12/07/2017 11:20 AM CDT Narrative [facility] - 12/08/2017 8:41 AM CDT Non Reactive - Antibodies to Hepatitis C virus (HCV) were not detected, result does not exclude early acute HCV infection. Non Reactive - Antibodies to Hepatitis C virus (HCV) were not detected, result does not exclude early acute HCV infection. us Fanny Miller CUTTER FINISHER-EXTENSION SPECIALIST LAB - CHEMISTRY O RDERABLES Final Result [facility] [address] [place] [address] from Last 3 Months or Most Recently Relevant to Health Maintenance Insurance [place]ICAID [place] Advance Directives * Full Code (Latest Code Status on File) Date Activated Date Inactivated Comments 05/12/2017 8:24 PM 05/14/2017 2:30 PM Care Teams Supervisor Knitting Relationship Specialty Start Date End Date Esperanza Mccabe PA-C [address] [facility] [address] [place] [address] PCP - General Physician Truck Farmer 02/03/23 Ramone Heller MD [address] [place] [address] Student Resident 02/21/19
--- OUTSIDE RECORDS SUMMARY | 2025-04-28 10:42 | XMS_ITS | Clinical Summary ---
Author Organization [facility] Address [address] [place] [phone] Care Team Providers Care Cycle Liaison Name Role Phone Gordon Josue MD Primary Care Provider [phone] Allergies No known active allergies Medications [facility]-[employer] [...] of Treatment Not on file Care Teams Cycle Liaison Relationship Specialty Start Date End Date Gordon Josue MD PCP - General Emergency Medicine 12/24/20
--- OUTSIDE RECORDS SUMMARY | 2025-04-28 10:42 | XMS_ITS | Encounter Summary ---
Author Organization [facility] Address [address] [place] [place] [address] Care Team Providers Care Management Liaison Name Role Phone Tyshawn Barnes MD Primary Care Provider [phone] Adore Castillo DO Unavailable [phone] Ramone Heller MD Unavailable [phone] Rosetta Wall DO Primary Care Provider Esperanza Mccabe PA-C Primary Care Provider Judith Camarillo APRN-SUPERVISOR CIGAR PROCESSING Unavailable [phone] Reason for Visit * Reason Onset Date Comments Refill Request 04/19/2018 Encounter Details Date Type Department Care Team (Late st Contact Info) Description 04/19/2018 Telephone [facility] [address] [place] [address] Tyshawn Barnes MD [address] [place] [phone] Refill Request Social History Tobacco Use Types Packs/Day Years Used Date Smoking Tobacco: Never Smokeless Tobacco: Never Alcohol Use Standard Drinks/Week Comments No 0 (1 standard drink = 0.6 oz pur e alcohol) Sex and Gender Information Value Date Recorded Sex Assigned at Male 03/23/2023 9:05 AM CDT Legal Sex Male 5:42 AM AWARD CLERK Gender Identity Male 03/23/2023 9:05 AM CDT [...] child check up: 11/02/17 Pharmacy verified [facility]. No future appointments. documented in this encounter Plan of Treatment Not on file documented as of this encounter Visit Diagnoses Not on filedocumented in this encounter Care Teams Management Liaison Relationship Specialty Start Date End Date Tyshawn Barnes MD [address] [place] [address] PCP - General Pediatrics 11/07/14 10/20/22 Rosetta Wall DO [facility] [address] [facility] [place] [phone] PCP - General 10/21/22 02/02/23 Esperanza Mccabe, PAGamalC [address] [address] PCP - General Physician Launderer Hand 02/03/23 Judith Camarillo, BOILERMAKER'S ASSISTANT-SUPERVISOR CIGAR PROCESSING [address] [place] [phone] PCP - Attributed-[place] [employer] Medicaid STL 08/24/23 12/10/23 Adore Castillo DO [address] [place] [phone] Student Resident 02/06/16 02/20/19 Ramone Heller MD [address] [place] [address] Student Resident 02/21/19 documented as of this encounter
[2025-04-28] MEDS: SODIUM CHLORIDE 0.9% IV 1,000 ML 999 ML IV CONT ×2 (10:44→11:51)
[2025-04-28] MEDS: ACETAMINOPHEN 500 MG TABLET 1000 MG PO (10:45)
[2025-04-28 10:54] LABS: Hematocrit 39.1 % (42.0-52.0); Hemoglobin 12.5 g/dL (14.0-18.0); Immature Granulocyte Percent A 0.5 % (0-0.5); Lymphocytes Absolute Auto 0.95 K/mm3 (0.9-3.2); Mean Corpuscular HGB Conc 32.0 g/dl (32-36); Mean Corpuscular Hemoglobin 26.9 pg (26-34); Mean Corpuscular Volume 84.1 fl (80-100); Nucleated Red Blood Cells Absolute Auto 0.000 K/mm3 (0.0-0.012); Nucleated Red Blood Cells Perc 0.0 % (0.0-0.2); Platelet Count Result 229 k/mm3 (150-375); Red Blood Count 4.65 M/mm3 (4.6-6.20); White Blood Count 12.8 K/mm3 (4.5-10.0)
[2025-04-28 11:04] LABS: Magnesium 1.7 mg/dL (1.6-2.3)
[2025-04-28 11:05] LABS: Alanine Aminotransferase 35 U/L (6-50); Albumin Level 3.9 g/dL (3.5-5.1); Alkaline Phosphatase 50 U/L (38-126); Anion Gap 9 mmol/L (4-12); Aspartate Amino Transferase 32 U/L (17-59); Bilirubin,Total 1.2 mg/dL (0.2-1.3); Blood Urea Nitrogen 15 mg/dL (9-20); Calcium 8.5 mg/dL (8.4-10.2); Carbon Dioxide 22 mmol/L (22-30); Chloride 103 mmol/L (98-107); Estimated CRCL calculation 191 ml/min; Estimated Glomerular Filt Rate > 60; Glucose 129 mg/dL (65-110); Potassium 3.6 mmol/L (3.4-5.0); Sodium 134 mmol/L (137-145); Total Protein 8.1 g/dL (6.3-8.2)
[2025-04-28 11:22] LABS: Procalcitonin 2.0 ng/mL
[2025-04-28 11:43] LABS: Hemoglobin A1C 5.9 % (<5.7)
[2025-04-28] MEDS: CEFEPIME 2 GM in SODIUM CHLORIDE 0.9% IV 50 ML 100 ML IVPB (11:52)
--- NOTE | 2025-04-28 12:18 | ED.GENADULT ---
HPI - General Adult General Chief complaint: Wound/Laceration Stated complaint: wound to right leg Time Seen by Provider: 04/28/25 10:10 History of Present Illness HPI narrative: Patient is a 24-year-old gentleman who presents emergency department with chief complaint of cellulitis the right lower extremity patient reports that he was seen in the emergency department for chest pain several days ago reports that he has noticed that he has redness and swelling to the circumferential area of his right lower extremity the patient also reports that he has a small ulceration the patient was seen in urgent care found to be febrile and tachycardic and was sent to the emergency department Related Data Home Medications ?Medication ?Instructions ?Recorded ?Confirmed ?Last Taken ?Type loratadine 10 mg tablet (Allergy 10 mg PO DAILY 03/01/25 03/01/25 Unknown History Relief (loratadine)) Allergies Allergy/AdvReac Type Severity Reaction Status Date / Time No Known Allergies Allergy Verified 04/28/25 10:51 Review of Systems Review of Systems: A 10 system review of systems was completed on the patient and is negative except for what is stated in the HPI. Nursing and ancillary documentation was reviewed. [facility] Past Medical History Medical History Hypothyroidism Impaired fasting glucose Hidradenitis suppurativa Depression Surgical History Surgical History History of incision and drainage infected dog bite Family History Family History Father Alcoholism Grandparent Alcoholism Asthma Depression Cerebrovascular accident Heart disease Grandparent Depression Grandparent Alcoholism Diabetes mellitus Social History Social History Social History: will smoke up to 2 cigarettes per day Smoking status: Current some day smoker Tobacco type: cigarettes Alcohol intake: current Drinks per week: 4 Substance use: current Substance use type: marijuana Occupation/Education: occupation 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 Morbidly obese HEAD: Normocephalic, atraumatic. EYES: PERRLA and EOMI. ENT: Nares clear, no rhinorrhea or epistaxis. Mucous membranes moist. NECK: Supple. CHEST: Clear to auscultation. No respiratory distress. HEART: Regular rate and rhythm. No murmur heard. Normal peripheral pulses. ABDOMEN: Soft, nontender, nondistended, normal active bowel sounds. EXTREMITIES: Normal range of motion. No edema. SKIN: Warm, dry, no rash. There is redness of the right lower extremity around the right calf there is a small ulceration that is not draining there is no crepitance NEURO: No focal deficits. Alert and oriented x3. PSYCH: Normal mood and affect. Course Vital Signs Vital signs: Vital Signs Temperature 39.3 C H 04/28/25 10:35 Pulse Rate 119 H 04/28/25 10:35 Respiratory Rate 15 04/28/25 10:35 Blood Pressure 115/63 04/28/25 10:35 Pulse Oximetry 98 04/28/25 10:35 Oxygen Delivery Room Air 04/28/25 10:35 Temperature 38.8 C H 04/28/25 11:46 Pulse Rate 118 H 04/28/25 11:58 Respiratory Rate 22 H 04/28/25 11:58 Blood Pressure 102/56 L 04/28/25 11:58 Pulse Oximetry 97 04/28/25 11:58 Oxygen Delivery Room Air 04/28/25 10:35 Medical Decision Making [facility] Narrative Medical decision making narrative: Differential diagnosis includes sepsis, cellulitis, Deep tissue infection, Laboratory studies were obtained on the patient showed a white count of 12.8 the patient was febrile in the emergency department given Tylenol and received 2 L of normal saline boluses temperature has come down somewhat hemoglobin A1c was 5.9 lactic acid was 1.6 procalcitonin is 2.0 plain film x-rays of the right lower extremity showed no subcu gas and no evidence of bony destruction Patient was started on cefepime vancomycin and Flagyl blood cultures were obtained Vital Signs Vital Signs: Vital Signs Temperature 39.3 C H 04/28/25 10:35 Pulse Rate 119 H 04/28/25 10:35 Respiratory Rate 15 04/28/25 10:35 Blood Pressure 115/63 04/28/25 10:35 Pulse Oximetry 98 04/28/25 10:35 Oxygen Delivery Room Air 04/28/25 10:35 Temperature 38.8 C H 04/28/25 11:46 Pulse Rate 118 H 04/28/25 11:58 Respiratory Rate 22 H 04/28/25 11:58 Blood Pressure 102/56 L 04/28/25 11:58 Pulse Oximetry 97 04/28/25 11:58 Oxygen Delivery Room Air 04/28/25 10:35 Lab Data 04/28/25 10:41 04/28/25 10:41 Labs: Lab Results 04/28/25 Range/Units 10:41 WBC 12.8 H (4.5-10.0) K/mm3 RBC 4.65 (4.6-6.20) M/mm3 Hgb 12.5 L (14.0-18.0) g/dL Hct 39.1 L (42.0-52.0) % MCV 84.1 (80-100) fl MCH 26.9 (26-34) pg MCHC 32.0 (32-36) g/dl RDW 15.1 H (11.5-14.5) % Plt Count 229 (150-375) k/mm3 MPV 9.9 (7.4-10.4) fl Immature Gran % (Auto) 0.5 (0-0.5) % Neut % (Auto) 87.8 H (45.5-73.1) % Lymph % (Auto) 7.4 L (18.3-44.2) % [place] % (Auto) 4.0 (2.6-8.5) % Eos % (Auto) 0.0 (0-4.4) % Baso % (Auto) 0.3 (0.2-1.2) % Lymph # (Auto) 0.95 (0.9-3.2) K/mm3 [place] # (Auto) 0.5 (0.1-0.6) K/mm3 Eos # (Auto) 0.0 (0-0.3) K/mm3 Baso # (Auto) 0.0 (0.0-0.1) K/mm3 Abs Immat Gran (auto) 0.06 H (0.00-0.031) K/mm3 Absolute Neuts (auto) 11.2 H (1.3-6.7) K/mm3 Absolute Nucleated RBC 0.000 (0.0-0.012) K/mm3 Nucleated RBC % 0.0 (0.0-0.2) % Sodium 134 L (137-145) mmol/L Potassium 3.6 (3.4-5.0) mmol/L Chloride 103 (98-107) mmol/L Carbon Dioxide 22 (22-30) mmol/L Anion Gap 9 (4-12) mmol/L BUN 15 (9-20) mg/dL Creatinine 1.12 (0.7-1.3) mg/dL Estim Creat Clear Calc 191 ml/min Estimated GFR > 60 (59 - ) Glucose 129 H (65-110) mg/dL Hemoglobin A1c 5.9 H (<5.7) % Lactic Acid 1.6 (0.7-2.0) mmol/L Calcium 8.5 (8.4-10.2) mg/dL Magnesium 1.7 (1.6-2.3) mg/dL Total Bilirubin 1.2 (0.2-1.3) mg/dL AST 32 (17-59) U/L ALT 35 (6-50) U/L Alkaline Phosphatase 50 (38-126) U/L Total Protein 8.1 (6.3-8.2) g/dL Albumin 3.9 (3.5-5.1) g/dL Procalcitonin 2.0 ng/mL Discharge Plan Discharge Clinical Impression: Cellulitis of leg, right Patient Disposition: Still a Patient Condition: Stable Patient Language: Khmer Prescriptions: No Action loratadine [Allergy Relief (loratadine)] 10 mg tablet 10 mg PO DAILY lidocaine [Lidocan III] 5 % adhesive patch,medicated 1 patch topical DAILY Qty: 15 0RF Rx Instructions: leave on most painful area for up to 12 hrs levothyroxine [Unithroid] 150 mcg tablet 150 mcg PO DAILY Qty: 90 0RF Follow-up/Referrals: Lisa Mckeon APRN [Primary Care Provider, [facility]] Time of Disposition: 12:21
[2025-04-28] MEDS: metroNIDAZOLE 500 MG/ISO 100ML 500 MG/100 ML BAG 100 MG IVPB ×2 (12:42→18:20)
--- NOTE | 2025-04-28 12:47 | P.HP_ITS ---
H&P: HPI History of Present Illness Date/Time: 04/28/25 12:47 Chief Complaint: Leg Wound and Redness Narrative: 24 y/o M with PMH of hypothyroidism, depression, anxiety, prediabetes, acute liver failure (age 17, no chronic hepatitis) and hydradenitis suppurative presents here with redness and a wound to his right lower extremity. The patient presents here from a local urgent care on 04/28 for further evalua tion of a right lower extremity wound. He reports that the wound has been present for the past few weeks. He is unsure how the wound initially started. But he first noticed the wound when he had planned his sock off and skin came off which led to the open wound to his orellana. He reports associated redness, swelling, tenderness, fever, weakness, general malaise, and chills. He denies chest pain, abdominal pain, or shortness of breath. He reports to the pain he has had to utilize a cane to ambulate. He does have a history significant for hidradenitis suppurative but states this has not been an issue for him since he came off a diuretic that was prescribed to him for hypertension. He initially sought care with a local urgent care, however he was sent to [facility] due to concern for sepsis and the patient's blood pressure had been soft during that evaluation. Initial VS at presentation: 102.7? F, HR 118, R 15, 115/63, and 98% on RA. ED workup showed: WBC 12.8, hemoglobin 12 5, sodium 134, creatinine 1.12 and GFR >60, glucose 129, A1c 5.9, lactic 1.6, procalcitonin 2.0. Tib/fib XR showed no fractures, dislocations, and findings consistent with mild osteoarthritis. CXR showed no focal consolidation, mild perihilar bronchial wall thickening suggestive of respiratory bronchiolitis. Review of Systems Review of Systems: All systems reviewed & are unremarkable except as noted in HPI and below [facility] Past Medical History Medical History Anxiety Hypothyroidism Impaired fasting glucose Hidradenitis suppurativa Depression Surgical History Surgical History History of incision and drainage infected dog bite Family History Family History (Updated 04/28/25 @ 14:33 by Praveena Martinez RN) Father Alcoholism Grandparent Alcoholism Depression Heart disease Cerebrovascular accident Asthma Chronic obstructive pulmonary disease Grandparent Depression Grandparent Diabetes mellitus Alcoholism Social History Social History Social History: will smoke up to 2 cigarettes per day Smoking status: Current some day smoker Tobacco type: cigarettes Alcohol intake: current Drinks per week: 4 Substance use: current Substance use type: marijuana Occupation/Education: occupation 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 [employer] Gender identity (if verbalized by the patient): Male Meds Home Medications and Allergies Home Medications ?Medication ?Instructions ?Recorded ?Confirmed ?Type loratadine 10 mg tablet (Allergy 10 mg PO DAILY 03/01/25 History Relief (loratadine)) levothyroxine 150 mcg tablet 150 mcg PO DAILY #90 tabs 03/03/25 Rx (Unithroid) lidocaine 5 % topical patch 1 patch topical DAILY #15 ea 04/27/25 Rx (Lidocan III) Allergies Allergy/AdvReac Type Severity Reaction Status Date / Time No Known Allergies Allergy Verified 04/28/25 10:51 Vital Signs Vital Signs - 24 hr 04/28/25 10:35 04/28/25 11:46 04/28/25 11:58 Temperature 102.7 F H 101.9 F H Pulse Rate 119 H 114 H 118 H Respiratory Rate 15 22 H 22 H Blood Pressure 115/63 98/49 L 102/56 L Pulse Oximetry 98 97 97 Oxygen Delivery Room Air 04/28/25 12:43 Temperature Pulse Rate 115 H Respiratory Rate 20 Blood Pressure 91/52 L Pulse Oximetry 96 Oxygen Delivery Exam Const: General: comfortable and no acute distress Other: , male, young adult, morbidly obese, nontoxic appearance HENMT: Face/Nose/Sinus: Normal nares present Mouth: Yes moist mucous membranes Eyes: General: appearance normal, both eyes and all related structures Sclera: sclerae normal Pupils: Equal, round and reactive pupils present EOM: EOMs intact bilaterally Resp: Effort & Inspection: normal respiratory effort Auscultation: clear to auscultation bilaterally Cardio: Rate: regular rate Rhythm: regular rhythm Other: S1-S2 present without murmur, rub, ectopy GI: Other: Abdomen soft, nondistended, nontender. Normoactive bowel sounds in all quadrants. Skin: Wounds: wounds noted Other: 1x2 shallow wound to anterior orellana with a yellow/moist wound bed. no active drainage. circumferential erythema that has been marked. blanching peripherally, however more centrally (around 5 to 6+ cm around wound the skin does not david. moderate tenderness with palpation. Neuro: Speech: normal speech Motor exam (neuro): 5/5 motor strength present throughout Sensory Exam: normal sensation Other: A&O x4 Extrem: General: normal exam except as noted (See skin exam) Psych: Mental Status: mental status grossly normal Affect: normal affect Other: Good insight and judgment, very pleasant H&P: Results Labs Labs: Short CBC 04/28/25 Range/Units 10:41 WBC 12.8 H (4.5-10.0) K/mm3 Hgb 12.5 L (14.0-18.0) g/dL Hct 39.1 L (42.0-52.0) % Plt Count 229 (150-375) k/mm3 BMP 04/28/25 10:41 Sodium 134 L Potassium 3.6 Chloride 103 Carbon Dioxide 22 BUN 15 Creatinine 1.12 Glucose 129 H Calcium 8.5 Liver Function 04/28/25 Range/Units 10:41 Total Bilirubin 1.2 (0.2-1.3) mg/dL AST 32 (17-59) U/L ALT 35 (6-50) U/L Alkaline Phosphatase 50 (38-126) U/L Albumin 3.9 (3.5-5.1) g/dL Assessment and Plan Assessment and plan (1) Sepsis: Qualifiers: Sepsis acute organ dysfunction status: without acute organ dysfunction Sepsis type: sepsis due to unspecified organism Qualified Code(s): A41.9 - Se psis, unspecified organism Code(s): A41.9 - Sepsis, unspecified organism Status: Acute Assessment and Plan: - meets SIRS criteria: HR greater than 90, afebrile, WBC greater than 12. BP soft. - lactic acid 1.6, procalcitonin 2.0 - 30 mL/kg = 7.6 L, given 2L -> 125 mL/hr - suspected source: RLE cellulitis - started on cefepime, vancomycin, Flagyl - blood cultures drawn on 04/28, follow - monitor hemodynamic stability (2) Cellulitis of leg, right: Code(s): L03.115 - Cellulitis of right lower limb Status: Acute Assessment and Plan: - XR tib/fib, 04/28: There are no fractures or dislocations.Joint space narrowing, subchondral sclerosis, subchondral cyst formation and osteophyte formation, compatible with mild osteoarthritis. - started on cefepime, Flagyl, and vancomycin on 04/28 - wound RN consulted - wound culture, if obtainable - analgesics p.r.n. - trend WBC (3) Hypothyroidism: Qualifiers: Hypothyroidism type: unspecified Qualified Code(s): E03.9 - Hypothyroidism, unspecified Code(s): E03.9 - Hypothyroidism, unspecified Status: Chronic Assessment and Plan: - previous lab work reviewed, TSH 67.68 on 03/01/2025. Will update TSH in a.m. - continue Synthroid (4) Pre-diabetes: Code(s): R73.03 - Prediabetes Status: Chronic Assessment and Plan: - A1c 5.9% on 04/28/25 Plan Diet: diabetic GI Prophylaxis: n/a DVT Prophylaxis: Lovenox SQ IV fluids: 2L -> 125 mL/hr Lines/Tubes: Peripheral IV Code Status: Full code Quality VTE Prophylaxis VTE prophylaxis: pharmacologic ordered Hospitalist MIPS Advance Care Plan I have confirmed that the patient's Advanced Care Plan is present, code status is documented, or surrogate decision maker is listed in patient medical record.: Yes Medication Reconciliation I have utilized all available resources to obtain, update and review the patients current medications (includes all prescriptions, OTC, herbals, cannabis, and nutritional supplements).: Yes
[2025-04-28] MEDS: VANCOMYCIN 1,250 MG/NS 250 ML 1,250 MG/250 ML BAG 166.67 MG IVPB ×2 (13:47→15:40)
[2025-04-28] MEDS: SODIUM CHLORIDE 0.9% IV 1,000 ML 125 ML IV CONT (14:18)
--- NOTE | 2025-04-28 14:30 | ADMGEN ---
This patient, Jerrell Llamas Jr., was admitted to 2 Medical Room 242-01. Patient/family oriented to hospital policies and general routines including ID bracelet, bed and alarms, visiting hours, pain management, procedures, bathroom and other care routines, personal items, smoking policy, room service/diet, and visiting hours. Information on how to activate the Rapid Response Team has been discussed. Patient/Family are encouraged to report perceived risks to care and to ask questions if they do not understand what they are told or what they should do.
[2025-04-28] MEDS: ACETAMINOPHEN 325 MG TABLET 650 MG PO (20:11)
[2025-04-29] VITALS (10 sets, daily range): BP systolic 117–130; BP diastolic 46–66; PULSE 110–131; RESP 16–22; TEMP 36.9–37.6; O2SAT 97–99
[2025-04-29] MEDS: CEFEPIME 2 GM in SODIUM CHLORIDE 0.9% IV 50 ML 100 ML IVPB ×2 (01:08→12:47)
[2025-04-29] MEDS: SODIUM CHLORIDE 0.9% IV 1,000 ML 125 ML IV CONT ×2 (01:41→14:14)
[2025-04-29] MEDS: VANCOMYCIN 1,500 MG/NS 500 ML 1,500 MG/500 ML BAG 250 MG IVPB ×2 (01:42→14:22)
[2025-04-29] MEDS: metroNIDAZOLE 500 MG/ISO 100ML 500 MG/100 ML BAG 100 MG IVPB ×3 (04:54→18:03)
[2025-04-29 06:48] LABS: Hematocrit 36.2 % (42.0-52.0); Hemoglobin 11.4 g/dL (14.0-18.0); Immature Granulocyte Percent A 0.5 % (0-0.5); Lymphocytes Absolute Auto 1.22 K/mm3 (0.9-3.2); Mean Corpuscular HGB Conc 31.5 g/dl (32-36); Mean Corpuscular Hemoglobin 27.0 pg (26-34); Mean Corpuscular Volume 85.6 fl (80-100); Nucleated Red Blood Cells Absolute Auto 0.000 K/mm3 (0.0-0.012); Nucleated Red Blood Cells Perc 0.0 % (0.0-0.2); Platelet Count Result 173 k/mm3 (150-375); Red Blood Count 4.23 M/mm3 (4.6-6.20); White Blood Count 13.2 K/mm3 (4.5-10.0)
--- NOTE | 2025-04-29 06:59 | P.PNIM_ITS ---
Progress Note: A&P Assessment and Plan (1) Sepsis: Qualifiers: Sepsis acute organ dysfunction status: without acute organ dysfunction Sepsis type: sepsis due to unspecified organism Qualified Code(s): A41.9 - S epsis, unspecified organism Code(s): A41.9 - Sepsis, unspecified organism Status: Acute Assessment and Plan: * meets SIRS criteria: HR greater than 90, afebrile, WBC greater than 12. BP soft. * lactic acid 1.6, procalcitonin 2.0 * 30 mL/kg = 7.6 L, given 2L -> 125 mL/hr * suspected source: RLE cellulitis * started on cefepime, vancomycin, Flagyl * blood cultures drawn on 04/28 - pending * monitor hemodynamic stability * Remains afebrile, although leukocytosis worse, up from 12.8 -> 13.2 (2) Cellulitis of leg, right: Code(s): L03.115 - Cellulitis of right lower limb Status: Acute Assessment and Plan: * XR tib/fib, 04/28: There are no fractures or dislocations.Joint space narrowing, subchondral sclerosis, subchondral cyst formation and osteophyte formation, compatible with mild osteoarthritis. * started on cefepime, Flagyl, and vancomycin on 04/28 * wound RN consulted * wound culture, if obtainable * analgesics p.r.n. * trend WBC * General surgery consult * Obtain wound culture (3) Hypothyroidism: Qualifiers: Hypothyroidism type: unspecified Qualified Code(s): E03.9 - Hypothyroidism, unspecified Code(s): E03.9 - Hypothyroidism, unspecified Status: Chronic Assessment and Plan: * previous lab work reviewed, TSH 67.68 on 03/01/2025. Will update TSH in a.m. * continue Synthroid (4) Pre-diabetes: Code(s): R73.03 - Prediabetes Status: Chronic Assessment and Plan: * A1c 5.9% on 04/28/25 Plan Diet: diabetic GI Prophylaxis: n/a DVT Prophylaxis: Lovenox SQ IV fluids: 2L -> 125 mL/hr Lines/Tubes: Peripheral IV Code Status: Full code Subjective Date/time seen: 04/29/25 06:59 Interval history: 24 y/o M with PMH of hypothyroidism, depression, anxiety, prediabetes, acute liver failure (age 17, no chronic hepatitis) and hydradenitis suppurative presents here with redness and a wound to his right lower extremity. 04/29/2025 Patient sitting comfortably in bed at time of examination. Denies chest, shortness a breath, nausea/vomiting, or abdominal pain. Wound observed on anterior aspect of right lower extremity, appears to be drain, very erythematous and tender to palpation. General surgery consulted regarding open draining wound, will also obtain wound culture. Review of Systems Review of Systems: All systems reviewed & are unremarkable except as noted in HPI and below Exam Narrative: 1x2 shallow wound to anterior orellana with a yellow/moist wound bed. no active drainage. circumferential erythema that has been marked. blanching peripherally, however more centrally (around 4-5 cm around wound the skin does not david. moderate tenderness with palpation. morbidly obese. otherwise fine. Const: General: comfortable and no acute distress Other: , male, young adult, morbidly obese, nontoxic appearance HENMT: Face/Nose/Sinus: Normal nares present Mouth: Yes moist mucous membranes Eyes: General: appearance normal, both eyes and all related structures Sclera: sclerae normal Pupils: Equal, round and reactive pupils present EOM: EOMs intact bilaterally Resp: Effort & Inspection: normal respiratory effort Auscultation: clear to auscultation bilaterally Cardio: Rate: regular rate Rhythm: regular rhythm Other: S1-S2 present without murmur, rub, ectopy GI: Other: Abdomen soft, nondistended, nontender. Normoactive bowel sounds in all quadrants. Skin: General skin exam: wounds noted Wounds: wounds noted Other: 1x2 shallow wound to anterior orellana with a yellow/moist wound bed. no active drainage. circumferential erythema that has been marked. blanching peripherally, however more centrally (around 5 to 6+ cm around wound the skin does not david. moderate tenderness with palpation. Neuro: Cranial nerves: Yes Equal, round and reactive pupils present Speech: normal speech Motor exam (neuro): 5/5 motor strength present throughout Sensory Exam: normal sensation Other: A&O x4 Extrem: General: normal exam except as noted (See skin exam) Psych: Mental Status: mental status grossly normal Affect: normal affect Other: Good insight and judgment, very pleasant Objective Data Vital Signs Vital Signs: Vital Signs - 24 hr 04/28/25 10:35 04/28/25 11:46 04/28/25 11:58 Temperature 102.7 F H 101.9 F H Pulse Rate 119 H 114 H 118 H Respiratory Rate 15 22 H 22 H Blood Pressure 115/63 98/49 L 102/56 L Pulse Oximetry 98 97 97 Oxygen Delivery Room Air 04/28/25 12:43 04/28/25 14:45 04/28/25 15:00 Temperature 99.6 F Pulse Rate 115 H 110 H Respiratory Rate 20 22 H Blood Pressure 91/52 L 121/47 L Pulse Oximetry 96 97 Oxygen Delivery Room Air 04/28/25 16:03 04/28/25 20:00 04/28/25 20:10 Temperature 101.1 F H Pulse Rate 139 H 126 H 125 H Respiratory Rate 16 Blood Pressure 126/42 L Pulse Oximetry 96 Oxygen Delivery 04/28/25 20:11 04/28/25 20:11 04/28/25 22:28 Temperature 101.1 F H 98.4 F Pulse Rate Respiratory Rate Blood Pressure Pulse Oximetry Oxygen Delivery Room Air 04/28/25 22:28 04/29/25 00:00 04/29/25 04:00 Temperature 98.4 F Pulse Rate 111 H 110 H Respiratory Rate Blood Pressure Pulse Oximetry Oxygen Delivery 04/29/25 04:40 Temperature 99.7 F H Pulse Rate 114 H Respiratory Rate 16 Blood Pressure 117/55 L Pulse Oximetry 99 Oxygen Delivery Intake/Output Intake/Output: Intake & Output 04/26/25 04/27/25 04/28/25 04/29/25 23:59 23:59 23:59 23:59 Intake Total 5080 1150 Balance 5080 1150 Meds/Results Medications: Active Medications Generic Name Dose Route Start Last Admin Trade Name Freq PRN Reason Stop Dose Admin Acetaminophen 650 mg 04/28/25 12:44 04/28/25 20:11 Acetaminophen 325 Mg Tablet PO 650 mg Q4H PRN Administration Mild Pain (1-3) or Fever Hydrocodone Bitart/Acetaminophen 1 tab 04/28/25 13:04 Hydrocodone/Acetaminophen (*Crx) 5-325 Mg Tablet PO Q4H PRN Moderate Pain (4-6) Bisacodyl 5 mg 04/28/25 13:04 Bisacodyl 5 Mg Tablet Ec PO DAILY PRN Constipation Enoxaparin Sodium 40 mg 04/29/25 09:00 Enoxaparin 40 Mg/0.4 Ml Syringe SUB-Q DAILY OMAR Cefepime HCl 2 gm/ Sodium 50 mls @ 100 mls/hr 04/29/25 00:00 04/29/25 01:38 Chloride IVPB Infused Q12H OMAR Infusion Metronidazole 500 mg in 100 mls @ 100 mls/hr 04/28/25 19:00 04/29/25 05:54 Flagyl 500 Mg/Iso Soln 100 Ml IVPB Infused Q8H OMAR Infusion Vancomycin HCl 1,500 mg in 500 mls @ 250 mls/hr 04/29/25 02:00 04/29/25 03:42 Vancomycin 1,500 Mg/Ns 500 Ml IVPB Infused Q12H OMAR Infusion Sodium Chloride 1,000 mls @ 125 mls/hr 04/28/25 12:45 04/29/25 01:41 Normal Saline Iv IV CONT 125 mls/hr .Q8H OMAR Administration Morphine Sulfate 2 mg 04/28/25 13:04 Morphine Sulfate (*Crx) 2 Mg/Ml Inj IV PUSH Q4H PRN Pain Rated 7-10 Ondansetron HCl 4 mg 04/28/25 12:44 Ondansetron Inj 4 Mg/2 Ml Vial IV PUSH Q4H PRN Nausea Radiology Results: ITS Impressions Chest X-Ray 04/28/25 11:30 IMPRESSION: No focal consolidation. Mild perihilar bronchial wall thickening, findings suggestive of respiratory bronchiolitis. Labs Labs: Laboratory Results - last 24 hr 04/28/25 04/28/25 04/29/25 10:41 21:43 03:20 WBC 12.8 H RBC 4.65 Hgb 12.5 L Hct 39.1 L MCV 84.1 MCH 26.9 MCHC 32.0 RDW 15.1 H Plt Count 229 MPV 9.9 Immature Gran % (Auto) 0.5 Neut % (Auto) 87.8 H Lymph % (Auto) 7.4 L Bollinger % (Auto) 4.0 Eos % (Auto) 0.0 Baso % (Auto) 0.3 Lymph # (Auto) 0.95 [place]linger # (Auto) 0.5 Eos # (Auto) 0.0 Baso # (Auto) 0.0 Abs Immat Gran (auto) 0.06 H Absolute Neuts (auto) 11.2 H Absolute Nucleated RBC 0.000 Nucleated RBC % 0.0 Sodium 134 L Potassium 3.6 Chloride 103 Carbon Dioxide 22 Anion Gap 9 BUN 15 Creatinine 1.12 Estim Creat Clear Calc 191 Estimated GFR > 60 Glucose 129 H POC Capillary Glucose 139 H 130 H Hemoglobin A1c 5.9 H Lactic Acid 1.6 Calcium 8.5 Magnesium 1.7 Total Bilirubin 1.2 AST 32 ALT 35 Alkaline Phosphatase 50 Total Protein 8.1 Albumin 3.9 Procalcitonin 2.0 04/29/25 06:42 WBC 13.2 H RBC 4.23 L Hgb 11.4 L Hct 36.2 L MCV 85.6 MCH 27.0 MCHC 31.5 L RDW 15.1 H Plt Count 173 MPV 9.7 Immature Gran % (Auto) 0.5 Neut % (Auto) 86.3 H Lymph % (Auto) 9.3 L [place]linger % (Auto) 3.7 Eos % (Auto) 0.0 Baso % (Auto) 0.2 Lymph # (Auto) 1.22 Bollinger # (Auto) 0.5 Eos # (Auto) 0.0 Baso # (Auto) 0.0 Abs Immat Gran (auto) 0.07 H Absolute Neuts (auto) 11.4 H Absolute Nucleated RBC 0.000 Nucleated RBC % 0.0 Sodium Potassium Chloride Carbon Dioxide Anion Gap BUN Creatinine Estim Creat Clear Calc Estimated GFR Glucose POC Capillary Glucose Hemoglobin A1c Lactic Acid Calcium Magnesium Total Bilirubin AST ALT Alkaline Phosphatase Total Protein Albumin Procalcitonin Quality VTE Prophylaxis VTE prophylaxis: pharmacologic ordered
[2025-04-29 07:19] LABS: Anion Gap 7 mmol/L (4-12); Blood Urea Nitrogen 8 mg/dL (9-20); Calcium 8.3 mg/dL (8.4-10.2); Carbon Dioxide 25 mmol/L (22-30); Chloride 104 mmol/L (98-107); Estimated CRCL calculation 216 ml/min; Estimated Glomerular Filt Rate > 60; Glucose 142 mg/dL (65-110); Potassium 3.6 mmol/L (3.4-5.0); Sodium 136 mmol/L (137-145)
[2025-04-29] MEDS: ENOXAPARIN 40 MG/0.4 ML SYRINGE SUB-Q (08:46)
[2025-04-29] MEDS: ACETAMINOPHEN 325 MG TABLET 650 MG PO (17:05)
[2025-04-30] VITALS (9 sets, daily range): BP systolic 111–129; BP diastolic 47–70; PULSE 101–113; RESP 18–20; TEMP 36.4–37.3; O2SAT 99–100
[2025-04-30] MEDS: SODIUM CHLORIDE 0.9% IV 1,000 ML 125 ML IV CONT ×2 (00:47→08:22)
[2025-04-30] MEDS: CEFEPIME 2 GM in SODIUM CHLORIDE 0.9% IV 50 ML 100 ML IVPB ×2 (00:47→12:03)
[2025-04-30 01:30] LABS: Estimated CRCL calculation 274 ml/min; Estimated Glomerular Filt Rate > 60
[2025-04-30] MEDS: metroNIDAZOLE 500 MG/ISO 100ML 500 MG/100 ML BAG 100 MG IVPB ×3 (02:00→18:10)
[2025-04-30] MEDS: VANCOMYCIN 2,000 MG/NS 500 ML 2,000 MG/500 ML BAG 250 MG IVPB ×3 (02:59→18:10)
[2025-04-30 08:06] LABS: Hematocrit 34.2 % (42.0-52.0); Hemoglobin 10.5 g/dL (14.0-18.0); Immature Granulocyte Percent A 0.5 % (0-0.5); Lymphocytes Absolute Auto 0.99 K/mm3 (0.9-3.2); Mean Corpuscular HGB Conc 30.7 g/dl (32-36); Mean Corpuscular Hemoglobin 26.7 pg (26-34); Mean Corpuscular Volume 87.0 fl (80-100); Nucleated Red Blood Cells Absolute Auto 0.000 K/mm3 (0.0-0.012); Nucleated Red Blood Cells Perc 0.0 % (0.0-0.2); Platelet Count Result 141 k/mm3 (150-375); Red Blood Count 3.93 M/mm3 (4.6-6.20); White Blood Count 8.8 K/mm3 (4.5-10.0)
[2025-04-30 08:17] LABS: Anion Gap 6 mmol/L (4-12); Blood Urea Nitrogen 6 mg/dL (9-20); Calcium 7.9 mg/dL (8.4-10.2); Carbon Dioxide 21 mmol/L (22-30); Chloride 108 mmol/L (98-107); Estimated CRCL calculation 292 ml/min; Estimated Glomerular Filt Rate > 60; Glucose 120 mg/dL (65-110); Potassium 3.4 mmol/L (3.4-5.0); Sodium 135 mmol/L (137-145)
[2025-04-30] MEDS: ACETAMINOPHEN 325 MG TABLET 650 MG PO (08:19)
[2025-04-30] MEDS: ENOXAPARIN 40 MG/0.4 ML SYRINGE SUB-Q (08:21)
--- NOTE | 2025-04-30 09:36 | P.PNIM_ITS ---
Progress Note: A&P Assessment and Plan (1) Sepsis: Qualifiers: Sepsis type: sepsis due to unspecified organism Sepsis acute organ dysfunction status: without acute organ dysfunction Qualified Code(s): A41.9 - Sepsis, unspecified organism Code(s): A41.9 - Sepsis, unspecified organism Status: Acute Assessment and Plan: * vital signs improving, leukocytosis resolved * From cellulitis * Worsening cellulitis as erythema is expanding * on cefepime, vancomycin, Flagyl, added Clindamycin * F/u with Blood cultures, and CT Lower extremities ordered to rule out Nec Fasciitis monitor and follow up on CT result (2) Cellulitis of leg, right: Code(s): L03.115 - Cellulitis of right lower limb Status: Acute Assessment and Plan: * XR tib/fib, 04/28: There are no fractures or dislocations.Joint space narrowing, subchondral sclerosis, subchondral cyst formation and osteophyte formation, compatible with mild osteoarthritis. CT Lower extremity pending Continue Abx as above * General surgery consult * Monitor cultures (3) Hypothyroidism: Qualifiers: Hypothyroidism type: unspecified Qualified Code(s): E03.9 - Hypothyroidism, unspecified Code(s): E03.9 - Hypothyroidism, unspecified Status: Chronic Assessment and Plan: * previous lab work reviewed, TSH 67.68 on 03/01/2025. Will update TSH in a.m. * continue Synthroid (4) Pre-diabetes: Code(s): R73.03 - Prediabetes Status: Chronic Assessment and Plan: * A1c 5.9% on 04/28/25 Plan Diet: diabetic DVT Prophylaxis: Lovenox SQ Code Status: Full code Subjective Date/time seen: 04/30/25 09:36 Interval history: Comfortable at bedside Right leg cellulitis worsening added Clindamycin and CT RLE Review of Systems 2 Review of Systems: All systems reviewed & are unremarkable except as noted in HPI and below Exam Narrative: 1x2 shallow wound to anterior orellana with a yellow/moist wound bed. no active drainage. circumferential erythema that has been marked. blanching peripherally, however more centrally (around 4-5 cm around wound the skin does not david. moderate tenderness with palpation. morbidly obese. otherwise fine. Const: General: comfortable and no acute distress Other: , male, young adult, morbidly obese, nontoxic appearance HENMT: Face/Nose/Sinus: Normal nares present Mouth: Yes moist mucous membranes Eyes: General: appearance normal, both eyes and all related structures Sclera: sclerae normal Pupils: Equal, round and reactive pupils present EOM: EOMs intact bilaterally Resp: Effort & Inspection: normal respiratory effort Auscultation: clear to auscultation bilaterally Cardio: Rate: regular rate Rhythm: regular rhythm Other: S1-S2 present without murmur, rub, ectopy GI: Other: Abdomen soft, nondistended, nontender. Normoactive bowel sounds in all quadrants. Skin: General skin exam: wounds noted Wounds: wounds noted Other: 1x2 shallow wound to anterior orellana with a yellow/moist wound bed. no active drainage. circumferential erythema that has been marked. blanching peripherally, however more centrally (around 5 to 6+ cm around wound the skin does not david. moderate tenderness with palpation. Neuro: Cranial nerves: Yes Equal, round and reactive pupils present Speech: normal speech Motor exam (neuro): 5/5 motor strength present throughout Sensory Exam: normal sensation Other: A&O x4 Extrem: General: normal exam except as noted (See skin exam) Psych: Mental Status: mental status grossly normal Affect: normal affect Other: Good insight and judgment, very pleasant Objective Data Vital Signs Vital Signs: Vital Signs - 24 hr 04/29/25 12:00 04/29/25 14:00 04/29/25 16:00 Temperature 99.5 F Pulse Rate 115 H 114 H 131 H Respiratory Rate 22 H Blood Pressure 122/66 Pulse Oximetry 98 Oxygen Delivery 04/29/25 20:00 04/29/25 20:47 04/29/25 21:10 Temperature 98.4 F Pulse Rate 112 H 113 H Respiratory Rate 20 Blood Pressure 130/46 L Pulse Oximetry 97 Oxygen Delivery Room Air 04/29/25 23:30 04/30/25 00:00 04/30/25 04:00 Temperature Pulse Rate 104 H 113 H Respiratory Rate Blood Pressure Pulse Oximetry 97 Oxygen Delivery Room Air 04/30/25 05:44 04/30/25 08:00 04/30/25 08:45 Temperature 99.2 F Pulse Rate 107 H 108 H Respiratory Rate 20 Blood Pressure 121/47 L Pulse Oximetry 99 Oxygen Delivery Room Air Intake/Output Intake/Output: Intake & Output 09/12/1604/28/25 04/29/25 04/30/25 23:59 23:59 23:59 23:59 Intake Total 5080 6440 2477.9 Balance 5080 6440 2477.9 Meds/Results Medications: Active Medications Generic Name Dose Route Start Last Admin Trade Name Freq PRN Reason Stop Dose Admin Acetaminophen 650 mg 04/28/25 12:44 04/30/25 08:19 Acetaminophen 325 Mg Tablet PO 650 mg Q4H PRN Administration Mild Pain (1-3) or Fever Hydrocodone Bitart/Acetaminophen 1 tab 04/28/25 13:04 Hydrocodone/Acetaminophen (*Crx) 5-325 Mg Tablet PO Q4H PRN Moderate Pain (4-6) Bisacodyl 5 mg 04/28/25 13:04 Bisacodyl 5 Mg Tablet Ec PO DAILY PRN Constipation Enoxaparin Sodium 40 mg 04/29/25 09:00 04/30/25 08:21 Enoxaparin 40 Mg/0.4 Ml Syringe SUB-Q 40 mg DAILY OMAR Administration Cefepime HCl 2 gm/ Sodium 50 mls @ 100 mls/hr 04/29/25 00:00 04/30/25 01:17 Chloride IVPB Infused Q12H OAMR Infusion Metronidazole 500 mg in 100 mls @ 100 mls/hr 04/28/25 19:00 04/30/25 03:00 Flagyl 500 Mg/Iso Soln 100 Ml IVPB Infused Q8H OMAR Infusion Vancomycin HCl 2,000 mg in 500 mls @ 250 mls/hr 04/30/25 03:00 04/30/25 04:59 Vancomycin 2,000 Mg/Ns 500 Ml IVPB Infused Q8H OMAR Infusion Morphine Sulfate 2 mg 04/28/25 13:04 Morphine Sulfate (*Crx) 2 Mg/Ml Inj IV PUSH Q4H PRN Pain Rated 7-10 Ondansetron HCl 4 mg 04/28/25 12:44 Ondansetron Inj 4 Mg/2 Ml Vial IV PUSH Q4H PRN Nausea Radiology Results: ITS Impressions Chest X-Ray 04/28/25 11:30 IMPRESSION: No focal consolidation. Mild perihilar bronchial wall thickening, findings suggestive of respiratory bronchiolitis. Labs Labs: Laboratory Results - last 24 hr 04/30/25 04/30/25 01:12 08:00 WBC 8.8 RBC 3.93 L Hgb 10.5 L Hct 34.2 L MCV 87.0 MCH 26.7 MCHC 30.7 L RDW 15.1 H Plt Count 141 L MPV 10.1 Immature Gran % (Auto) 0.5 Neut % (Auto) 81.2 H Lymph % (Auto) 11.3 L [place] % (Auto) 6.5 Eos % (Auto) 0.3 Baso % (Auto) 0.2 Lymph # (Auto) 0.99 [place] # (Auto) 0.6 Eos # (Auto) 0.0 Baso # (Auto) 0.0 Abs Immat Gran (auto) 0.04 H Absolute Neuts (auto) 7.1 H Absolute Nucleated RBC 0.000 Nucleated RBC % 0.0 Sodium 135 L Potassium 3.4 Chloride 108 H Carbon Dioxide 21 L Anion Gap 6 BUN 6 L Creatinine 0.76 0.71 Estim Creat Clear Calc 274 292 Estimated GFR > 60 > 60 Glucose 120 H Calcium 7.9 L Vancomycin Trough < 5.0 L Quality VTE Prophylaxis VTE prophylaxis: pharmacologic ordered
--- NOTE | 2025-04-30 09:40 | PC.NURSE ---
RN spoke to CT scan about order STAT CT scan. Patient's weight is too high to be able to lay on table for the CT scan. CT said they were going to communicate with the MD.
[2025-04-30] MEDS: CLINDAMYCIN 600 MG/D5W 50 ML 600 MG/50 ML PIGGYBACK 100 MG IVPB ×2 (10:08→17:36)
--- NOTE | 2025-04-30 10:18 | PC.NURSE ---
RN put new dots on spreading swelling and redness.
--- NOTE | 2025-04-30 10:42 | PC.NURSE ---
RN talked to Dr. Gabriel about patient's leg and said he will see patient's leg after procedures. RN told MD that the leg has gotten much worse.
--- NOTE | 2025-04-30 11:17 | PC.NURSE ---
MD Sullivan wants to wait on the possible transfer for CT scan until surgery sees patient.
--- NOTE | 2025-04-30 12:17 | PC.NURSE ---
Surgery MD Gabriel told RN and patient that CT scan is not necessary since plans on doing surgery tomorrow.
--- NOTE | 2025-04-30 21:36 | WPDCN ---
Assessment and Plan Assessment and plan (1) Cellulitis of leg, right: Code(s): L03.115 - Cellulitis of right lower limb Status: Acute Assessment and Plan: Severe cellulitis of the right lower leg with would and probable underlying abscess. No necrotizing soft tissue infection noted at this time. He will need to have incision and drainage of right lowler leg abscess in the OR tomorrow. Risks, benefits, indications, and expected outcomes were discussed in detail with the patient and/or family. They understand and I have answered all other questions. They wished to proceed with surgery as outlined above. NPO at midnight. (2) Abscess: Code(s): L02.91 - Cutaneous abscess, unspecified Status: Acute Assessment and Plan: Continue IV abx. I + D abscess tomorrow. HPI Data of Consult Date/Time: 04/30/25 21:36 Requesting Physician: Sarkis Sullivan MD Primary Care Provider: Lisa Mckeon APRN Consult Narrative Reason for consult: Right lower leg cellulitis Narrative: Jerrell Llamas Jr. is a 24 year old male admitted to hospital via ER after he presented with worsening cellulitis and pain and drainage from a wound on the anterior aspect of his right lower leg. He states that the wound has been present for a couple of weeks but recently has worsened. He denies being a diabetic and says he was tested by his applied anthropologist. He is super morbidly obese with a BMI of 81. WBC was 87373 on admission yesterday and today it is down to 8300. No fever. He is on Cefepime, Vancomycin, and Flagyl for IV abx. A CT scan of the right leg was ordered by could not be done here since he weights 580# and the limit for our CT scan table at [facility] is 500#. Review of Systems Review of Systems: The remainder of the review of systems to include constitutional, HEENT, cardiovascular, respiratory, GI, , integumentary, musculoskeletal, endocrine, immunologic, hematologic, psychiatric, and neurologic are all negative except for which is mentioned above in the HPI. [facility] Past Medical History Medical History Anxiety Hypothyroidism Impaired fasting glucose Hidradenitis suppurativa Depression Surgical History Surgical History History of incision and drainage infected dog bite Family History Family History Father Alcoholism Grandparent Alcoholism Depression Heart disease Cerebrovascular accident Asthma Chronic obstructive pulmonary disease Grandparent Depression Grandparent Diabetes mellitus Alcoholism Social History Social History Social History: will smoke up to 2 cigarettes per day Smoking status: Current some day smoker Tobacco type: cigarettes Alcohol intake: current Drinks per week: 1 Substance use: current Substance use type: marijuana Last use: 01/26/2025 Lack of Transportation: No Lack of Food: Never True Current Housing: I Have Housing Concerned About Future Housing: No Difficulty Paying Gas/Electric Bills: No Difficulty Paying for Meds: No Currently Unemployed: No Education: Bachelor's Degree Difficulty w/ Childcare or Family Care: No Occupation/Education: occupation 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 [employer] Gender identity (if verbalized by the patient): Male Spiritual care concerns: No Meds Home Medications and Allergies Home Medications ?Medication ?Instructions ?Recorded ?Confirmed ?Type loratadine 10 mg tablet (Allergy 10 mg PO DAILY 03/01/25 04/28/25 History Relief (loratadine)) levothyroxine 150 mcg tablet 150 mcg PO DAILY #90 tabs 03/03/25 04/28/25 Rx (Unithroid) Allergies Allergy/AdvReac Type Severity Reaction Status Date / Time No Known Allergies Allergy Verified 04/28/25 10:51 Vital Signs Vital Signs - 24 hr 04/29/25 23:30 04/30/25 00:00 04/30/25 04:00 Temperature Pulse Rate 104 H 113 H Respiratory Rate Blood Pressure Pulse Oximetry 97 Oxygen Delivery Room Air 04/30/25 05:44 04/30/25 08:00 04/30/25 08:45 Temperature 37.3 C Pulse Rate 107 H 108 H Respiratory Rate 20 Blood Pressure 121/47 L Pulse Oximetry 99 Oxygen Delivery Room Air 04/30/25 12:00 04/30/25 13:50 04/30/25 16:00 Temperature 36.4 C Pulse Rate 104 H 105 H 101 H Respiratory Rate 20 Blood Pressure 111/70 Pulse Oximetry 100 Oxygen Delivery 04/30/25 19:56 Temperature 36.8 C Pulse Rate 110 H Respiratory Rate 18 Blood Pressure 129/49 L Pulse Oximetry 100 Oxygen Delivery Exam Const: General: comfortable and no acute distress HENMT: Ears: TM's normal bilaterally Face/Nose/Sinus: Normal nares present Mouth: Yes moist mucous membranes Eyes: General: appearance normal, both eyes and all related structures Pupils: Equal, round and reactive pupils present EOM: EOMs intact bilaterally Neck: Neck: supple and no JVD Resp: Effort & Inspection: normal respiratory effort Auscultation: clear to auscultation bilaterally Cardio: Rate: regular rate Rhythm: regular rhythm GI: Other: Super morbidly obese abdomen, nontender, benign. Skin: General skin exam: normal color Neuro: General: gait normal Speech: normal speech Motor exam (neuro): 5/5 motor strength present throughout Sensory Exam: normal sensation Extrem: Other: Anterior lateral right lower leg in mid tibia area is a very large area exceeding 20 cm of erythema and induration with a central area of ulceration about 3 cm with drainage of slightly purulent fluid. Difficult to palpate an underlying abscess given size of the leg. Able to move toes and leg is warm. Psych: Mental Status: mental status grossly normal Affect: normal affect Results Labs 04/30/25 08:00 04/30/25 08:00 Labs: Short CBC 04/30/25 Range/Units 08:00 WBC 8.8 (4.5-10.0) K/mm3 Hgb 10.5 L (14.0-18.0) g/dL Hct 34.2 L (42.0-52.0) % Plt Count 141 L (150-375) k/mm3 [facility] 04/30/25 04/30/25 01:12 08:00 Sodium 135 L Potassium 3.4 Chloride 108 H Carbon Dioxide 21 L BUN 6 L Creatinine 0.76 0.71 Glucose 120 H Calcium 7.9 L
[2025-05-01] VITALS (15 sets, daily range): BP systolic 101–131; BP diastolic 44–82; PULSE 92–105; RESP 16–28; TEMP 36.2–37.6; O2SAT 97–100
[2025-05-01] MEDS: CEFEPIME 2 GM in SODIUM CHLORIDE 0.9% IV 50 ML 100 ML IVPB ×2 (00:23→13:06)
[2025-05-01] MEDS: SODIUM CHLORIDE 0.9% IV 1,000 ML 90 ML IV CONT (00:23)
[2025-05-01] MEDS: CLINDAMYCIN 600 MG/D5W 50 ML 600 MG/50 ML PIGGYBACK 100 MG IVPB ×2 (01:38→09:48)
[2025-05-01 02:05] LABS: Hematocrit 31.9 % (42.0-52.0); Hemoglobin 10.0 g/dL (14.0-18.0); Immature Granulocyte Percent A 0.9 % (0-0.5); Lymphocytes Absolute Auto 1.39 K/mm3 (0.9-3.2); Mean Corpuscular HGB Conc 31.3 g/dl (32-36); Mean Corpuscular Hemoglobin 26.7 pg (26-34); Mean Corpuscular Volume 85.1 fl (80-100); Nucleated Red Blood Cells Absolute Auto 0.000 K/mm3 (0.0-0.012); Nucleated Red Blood Cells Perc 0.0 % (0.0-0.2); Platelet Count Result 156 k/mm3 (150-375); Red Blood Count 3.75 M/mm3 (4.6-6.20); White Blood Count 8.5 K/mm3 (4.5-10.0)
[2025-05-01] MEDS: metroNIDAZOLE 500 MG/ISO 100ML 500 MG/100 ML BAG 100 MG IVPB ×2 (02:13→10:40)
[2025-05-01 02:21] LABS: Alanine Aminotransferase 21 U/L (6-50); Albumin Level 2.9 g/dL (3.5-5.1); Alkaline Phosphatase 48 U/L (38-126); Anion Gap 4 mmol/L (4-12); Aspartate Amino Transferase 27 U/L (17-59); Bilirubin,Total 0.5 mg/dL (0.2-1.3); Blood Urea Nitrogen 7 mg/dL (9-20); Calcium 7.9 mg/dL (8.4-10.2); Carbon Dioxide 27 mmol/L (22-30); Chloride 106 mmol/L (98-107); Estimated CRCL calculation 247 ml/min; Estimated Glomerular Filt Rate > 60; Glucose 106 mg/dL (65-110); Magnesium 2.0 mg/dL (1.6-2.3); Potassium 3.9 mmol/L (3.4-5.0); Sodium 137 mmol/L (137-145); Total Protein 6.5 g/dL (6.3-8.2)
[2025-05-01] MEDS: VANCOMYCIN 2,000 MG/NS 500 ML 2,000 MG/500 ML BAG 250 MG IVPB ×2 (03:38→10:41)
--- NOTE | 2025-05-01 11:24 | P.PNIM_ITS ---
Progress Note: A&P Assessment and Plan (1) Sepsis: Qualifiers: Sepsis type: sepsis due to unspecified organism Sepsis acute organ dysfunction status: without acute organ dysfunction Qualified Code(s): A41.9 - Sepsis, unspecified organism Code(s): A41.9 - Sepsis, unspecified organism Status: Acute Assessment and Plan: * vital signs improving, leukocytosis resolved * From cellulitis * Worsening cellulitis as erythema is expanding * on cefepime, vancomycin, Flagyl, and Clindamycin * F/u with Blood cultures, and CT Lower extremities ordered to rule out Nec Fasciitis * whittle down antibiotics per culture Gen surgery following (2) Cellulitis of leg, right: Code(s): L03.115 - Cellulitis of right lower limb Status: Acute Assessment and Plan: with abscess XR tib/fib, 04/28: There are no fractures or dislocations.Joint space narrowing, subchondral sclerosis, subchondral cyst formation and osteophyte formation, co mpatible with mild osteoarthritis. CT Lower extremity pending Continue Abx as above For I and D today Gen surgery following (3) Hypothyroidism: Qualifiers: Hypothyroidism type: unspecified Qualified Code(s): E03.9 - Hypothyroidism, unspecified Code(s): E03.9 - Hypothyroidism, unspecified Status: Chronic Assessment and Plan: * previous lab work reviewed, TSH 67.68 on 03/01/2025. Will update TSH in a.m. * continue Synthroid (4) Pre-diabetes: Code(s): R73.03 - Prediabetes Status: Chronic Assessment and Plan: * A1c 5.9% on 04/28/25 Plan Diet: diabetic DVT Prophylaxis: Lovenox SQ Code Status: Full code Subjective Date/time seen: 05/01/25 11:24 Interval history: Comfortable at bedside For I and D today Review of Systems Review of Systems: All systems reviewed & are unremarkable except as noted in HPI and below Exam Narrative: 1x2 shallow wound to anterior orellana with a yellow/moist wound bed. no active drainage. circumferential erythema that has been marked. blanching peripherally, however more centrally (around 4-5 cm around wound the skin does not david. moderate tenderness with palpation. morbidly obese. otherwise fine. Const: General: comfortable and no acute distress Other: , male, young adult, morbidly obese, nontoxic appearance HENMT: Face/Nose/Sinus: Normal nares present Mouth: Yes moist mucous membranes Eyes: General: appearance normal, both eyes and all related structures Sclera: sclerae normal Pupils: Equal, round and reactive pupils present EOM: EOMs intact bilaterally Resp: Effort & Inspection: normal respiratory effort Auscultation: clear to auscultation bilaterally Cardio: Rate: regular rate Rhythm: regular rhythm Other: S1-S2 present without murmur, rub, ectopy GI: Other: Abdomen soft, nondistended, nontender. Normoactive bowel sounds in all qu adrants. Skin: General skin exam: wounds noted Wounds: wounds noted Other: 1x2 shallow wound to anterior orellana with a yellow/moist wound bed. no active drainage. circumferential erythema that has been marked. blanching peripherally, however more centrally (around 5 to 6+ cm around wound the skin does not david. moderate tenderness with palpation. Neuro: Cranial nerves: Yes Equal, round and reactive pupils present Speech: normal speech Motor exam (neuro): 5/5 motor strength present throughout Sensory Exam: normal sensation Other: A&O x4 Extrem: General: normal exam except as noted (See skin exam) Psych: Mental Status: mental status grossly normal Affect: normal affect Other: Good insight and judgment, very pleasant Objective Data Vital Signs Vital Signs: Vital Signs - 24 hr 04/30/25 12:00 04/30/25 13:50 04/30/25 16:00 Temperature 97.6 F Pulse Rate 104 H 105 H 101 H Respiratory Rate 20 Blood Pressure 111/70 Pulse Oximetry 100 Oxygen Delivery 04/30/25 19:56 04/30/25 20:00 04/30/25 21:16 Temperature 98.2 F Pulse Rate 110 H 108 H Respiratory Rate 18 Blood Pressure 129/49 L Pulse Oximetry 100 Oxygen Delivery Room Air 05/01/25 00:00 05/01/25 04:00 05/01/25 04:22 Temperature 97.9 F Pulse Rate 105 H 93 96 Respiratory Rate 18 Blood Pressure 127/79 Pulse Oximetry 100 Oxygen Delivery 05/01/25 09:01 Temperature Pulse Rate 100 Respiratory Rate Blood Pressure Pulse Oximetry Oxygen Delivery Intake/Output Intake/Output: Intake & Output 04/28/25 04/29/25 04/30/25 05/01/25 23:59 23:59 23:59 23:59 Intake Total 5039 6459 4307.9 1000 Balance 5080 6440 4307.9 1000 Meds/Results Medications: Active Medications Generic Name Dose Route Start Last Admin Trade Name Freq PRN Reason Stop Dose Admin Acetaminophen 650 mg 04/28/25 12:44 04/30/25 08:19 Acetaminophen 325 Mg Tablet PO 650 mg Q4H PRN Administration Mild Pain (1-3) or Fever Hydrocodone Bitart/Acetaminophen 1 tab 04/28/25 13:04 Hydrocodone/Acetaminophen (*Crx) 5-325 Mg Tablet PO Q4H PRN Moderate Pain (4-6) Bisacodyl 5 mg 04/28/25 13:04 Bisacodyl 5 Mg Tablet Ec PO DAILY PRN Constipation Enoxaparin Sodium 40 mg 04/29/25 09:00 05/01/25 09:47 Enoxaparin 40 Mg/0.4 Ml Syringe SUB-Q Not Given DAILY OMAR Cefepime HCl 2 gm/ Sodium 50 mls @ 100 mls/hr 04/29/25 00:00 05/01/25 00:53 Chloride IVPB Infused Q12H OMAR Infusion Metronidazole 500 mg in 100 mls @ 100 mls/hr 04/28/25 19:00 05/01/25 10:40 Flagyl 500 Mg/Iso Soln 100 Ml IVPB 100 mls/hr Q8H OMAR Administration Vancomycin HCl 2,000 mg in 500 mls @ 250 mls/hr 04/30/25 03:00 05/01/25 10:41 Vancomycin 2,000 Mg/Ns 500 Ml IVPB 250 mls/hr Q8H OMAR Administration Clindamycin Phosphate 600 mg in 50 mls @ 100 mls/hr 04/30/25 10:00 05/01/25 09:48 Clindamycin 600 Mg/D5w 50 Ml IVPB 100 mls/hr Q8H OMAR Administration Sodium Chloride 1,000 mls @ 90 mls/hr 04/30/25 23:55 05/01/25 00:23 Normal Saline Iv IV CONT 90 mls/hr .Q11H7M OMAR Administration Morphine Sulfate 2 mg 04/28/25 13:04 Morphine Sulfate (*Crx) 2 Mg/Ml Inj IV PUSH Q4H PRN Pain Rated 7-10 Ondansetron HCl 4 mg 04/28/25 12:44 Ondansetron Inj 4 Mg/2 Ml Vial IV PUSH Q4H PRN Nausea Radiology Results: ITS Impressions Chest X-Ray 04/28/25 11:30 IMPRESSION: No focal consolidation. Mild perihilar bronchial wall thickening, findings suggestive of respiratory bronchiolitis. Labs Labs: Laboratory Results - last 24 hr 05/01/25 01:57 WBC 8.5 RBC 3.75 L Hgb 10.0 L Hct 31.9 L MCV 85.1 MCH 26.7 MCHC 31.3 L RDW 15.3 H Plt Count 156 MPV 9.8 Immature Gran % (Auto) 0.9 H Neut % (Auto) 72.3 Lymph % (Auto) 16.3 L [place] % (Auto) 8.7 H Eos % (Auto) 1.4 Baso % (Auto) 0.4 Lymph # (Auto) 1.39 [place] # (Auto) 0.7 H Eos # (Auto) 0.1 Baso # (Auto) 0.0 Abs Immat Gran (auto) 0.08 H Absolute Neuts (auto) 6.2 Absolute Nucleated RBC 0.000 Nucleated RBC % 0.0 Sodium 137 Potassium 3.9 Chloride 106 Carbon Dioxide 27 Anion Gap 4 BUN 7 L Creatinine 0.85 Estim Creat Clear Calc 247 Estimated GFR > 60 Glucose 106 Lactic Acid 0.6 L Calcium 7.9 L Magnesium 2.0 Total Bilirubin 0.5 AST 27 ALT 21 Alkaline Phosphatase 48 Total Protein 6.5 Albumin 2.9 L Vancomycin Trough 9.1 L Quality VTE Prophylaxis VTE prophylaxis: pharmacologic ordered
[2025-05-01] MEDS: LINEZOLID 600 MG/300 ML 600 MG/300 ML SOLN 300 MG IVPB (13:06)
[2025-05-01] MEDS: LACTATED RINGERS 1,000 ML 30 ML IV CONT (13:55)
--- NOTE | 2025-05-01 14:25 | P.PNAN_ITS ---
Anes - Initial Pre Proc Eval Procedure: Operation Date: 05/01/25 15:00 Proposed Procedures p Incision and Drainage Right Lower Extremity - Papito Gabriel MD Date/Time: 05/01/25 14:25 Surgeon: Sarkis Sullivan MD Pre Op Diagnosis: right lower extremity cellulitis Patient Data Age: 24 Gender: M Height: 1.78 m Weight: 257 kg Last Vital Signs Temp 37.4 C 05/01/25 13:55 Pulse 95 05/01/25 13:55 Resp 20 05/01/25 13:55 BP 121/70 05/01/25 13:55 Pulse Ox 100 05/01/25 13:55 O2 Del Method Room Air 05/01/25 13:55 Allergies Allergy/AdvReac Type Severity Reaction Status Date / Time No Known Allergies Allergy Verified 04/28/25 10:51 Home Medications ?Medication ?Instructions ?Recorded ?Confirmed ?Type loratadine 10 mg tablet (Allergy 10 mg PO DAILY 04/28/25 History Relief (loratadine)) levothyroxine 150 mcg tablet 150 mcg PO DAILY #90 tabs 03/03/25 04/28/25 Rx (Unithroid) Laboratory Tests 05/01/25 01:57 WBC 8.5 K/mm3 (4.5-10.0) RBC 3.75 L M/mm3 (4.6-6.20) Hgb 10.0 L g/dL (14.0-18.0) Hct 31.9 L % (42.0-52.0) MCV 85.1 fl (80-100) MCH 26.7 pg (26-34) MCHC 31.3 L g/dl (32-36) RDW 15.3 H % (11.5-14.5) Plt Count 156 k/mm3 (150-375) MPV 9.8 fl (7.4-10.4) Immature Gran % (Auto) 0.9 H % (0-0.5) Neut % (Auto) 72.3 % (45.5-73.1) Lymph % (Auto) 16.3 L % (18.3-44.2) [place] % (Auto) 8.7 H % (2.6-8.5) Eos % (Auto) 1.4 % (0-4.4) Baso % (Auto) 0.4 % (0.2-1.2) Lymph # (Auto) 1.39 K/mm3 (0.9-3.2) [place] # (Auto) 0.7 H K/mm3 (0.1-0.6) Eos # (Auto) 0.1 K/mm3 (0-0.3) Baso # (Auto) 0.0 K/mm3 (0.0-0.1) Abs Immat Gran (auto) 0.08 H K/mm3 (0.00-0.031) Absolute Neuts (auto) 6.2 K/mm3 (1.3-6.7) Absolute Nucleated RBC 0.000 K/mm3 (0.0-0.012) Nucleated RBC % 0.0 % (0.0-0.2) Sodium 137 mmol/L (137-145) Potassium 3.9 mmol/L (3.4-5.0) Chloride 106 mmol/L (98-107) Carbon Dioxide 27 mmol/L (22-30) Anion Gap 4 mmol/L (4-12) BUN 7 L mg/dL (9-20) Creatinine 0.85 mg/dL (0.7-1.3) Estim Creat Clear Calc 247 ml/min Estimated GFR > 60 (59 - ) Glucose 106 mg/dL (65-110) Lactic Acid 0.6 L mmol/L (0.7-2.0) Calcium 7.9 L mg/dL (8.4-10.2) Magnesium 2.0 mg/dL (1.6-2.3) Total Bilirubin 0.5 mg/dL (0.2-1.3) AST 27 U/L (17-59) ALT 21 U/L (6-50) Alkaline Phosphatase 48 U/L (38-126) Total Protein 6.5 g/dL (6.3-8.2) Albumin 2.9 L g/dL (3.5-5.1) Vancomycin Trough 9.1 L ug/mL (10.0-20.0) Patient hx anesthesia problems: none Family hx anesthesia problems: none Results Review: All pre-operative results and documents have been reviewed as part of the pre- operative evaluation. [facility] Past Medical History Medical History Anxiety Hypothyroidism Impaired fasting glucose Hidradenitis suppurativa Depression Surgical History Surgical History History of incision and drainage infected dog bite Family History Family History Father Alcoholism Grandparent Alcoholism Depression Heart disease Cerebrovascular accident Asthma Chronic obstructive pulmonary disease Grandparent Depression Grandparent Diabetes mellitus Alcoholism Social History Social History Social History: will smoke up to 2 cigarettes per day Smoking status: Current some day smoker Tobacco type: cigarettes Alcohol intake: current Drinks per week: 1 Substance use: current Substance use type: marijuana Last use: 01/26/2025 Lack of Transportation: No Lack of Food: Never True Current Housing: I Have Housing Concerned About Future Housing: No Difficulty Paying Gas/Electric Bills: No Difficulty Paying for Meds: No Currently Unemployed: No Education: Bachelor's Degree Difficulty w/ Childcare or Family Care: No Occupation/Education: occupation 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 Informed Consent: The patient's anesthetic plan and its attendant risks and benefits were discussed with the patient/family/POA. Questions were solicited and answers provided to the satisfaction of the patient/family/POA.
--- NOTE | 2025-05-01 15:41 | WPDHPUPDATE1 ---
History and Physical Update Update Date/Time: 05/01/25 15:41 History and Physical has been reviewed, including an updated exam of the patient. There are NO changes in the patient's condition. Risks, benefits, and alternatives have been discussed and questions answered. Patient agrees to proceed with procedure.
--- NOTE | 2025-05-01 16:52 | P.OP_ITS ---
Procedure Note - Detailed Date of Procedure 05/01/25 Pre-op Diagnosis Right lower extremity abscess and cellulitis Post-op Diagnosis Same Procedure Performed Incision and drainage right lower extremity abscess. Surgeon Papito Gabriel MD Anesthesia General Indications Patient is a 24-year-old morbidly obese male who was admitted to the hospital through the emergency room after having a redness swelling and increasing pain from a wound he has had on his anterior right lower extremity below the knee for the past several weeks. Patient states he is not a diabetic and states he has been tested for in the past. The wound has had some slightly purulent appearing drainage. Spreading erythema across the whole lower extremity from the knee to the ankle and onto the forefoot is noted. He is on broad-spectrum IV antibiotics and on examination underneath the wound there seems to be possible fluctuance. Given his size of 580lb a CT scan could not be obtained here at this hospital and due to the weight limit to the CT scanner. For this reason it was elected to go ahead and perform incision and drainage of the area of possible fluctuance and abscess. Findings The patient had severe inflammation and edema of the right lower extremity anterior in the mid tibia region. Upon incising the area of what was thought to be fluctuance there was some fluid in the area but no obvious pus pocket. I digitally explored the whole cavity and bluntly dissected down to the underlying fascia which was completely intact and healthy. No evidence of soft tissue necrotizing infection was seen. Description of Procedure After informed consent was obtained patient was brought to the operating room was placed in the supine position on the hospital bed and then anesthesia administered general LMA anesthesia. The right lower extremity from the distal thigh all the way to the toes was then prepped and draped usual sterile fashion. For correctly identifying the patient as well as procedure to be performed ashu ifying site marking. Over the right lower extremity in the mid tibia region just lateral to the tibia there was an area of fluctuance in the larger area of induration underlying the ulceration. I used a #10 scalpel and then performed incision and drainage of the fluctuant area with a cruciate incision. Once I entered down through the dermis skin into the deeper subcutaneous tissues I entered a cavity which was mostly filled with fluid and not any pus. I then digitally explored this plane of tissue and bluntly dissected down to the fascia which was completely intact and felt normal. there was resistance to the subcutaneous tissue from the fascia indicating that it was not necrotic. I then obtained a swab for deep tissue culture and the swab was sent to microbiology for Gram stain, aerobic, and anaerobic culture. I then irrigated out the knee with sterile saline solution. Hemostasis was then achieved with a combination electrocautery and then packing the wound with gauze tightly and holding pressure for about 10minutes. I then removed the packing hemostasis was good. New packing which was half-inch iodoform gauze and about 6 yd of packing was used to fill the cavity tightly to ensure hemostasis. The the packing and wound was then covered with 4x4 gauze, Kerlix gauze wrap, and 2 long 6in Krzysztof bandages from the toes to the knee. The patient tolerated the procedure well no complications. All sponges, needles, and instrument counts were correct at the end procedure. EBL was _30__cc. The patient was awakened and taken to recovery in stable and satisfactory condition. Implants None Estimated Blood Loss 30 Drains No Packing Yes ( half-inch iodoform gauze to right lower extremity wound.) Pathology Yes ( Wound swab to microbiology for culture and Gram stain) Complications No immediate complications Condition Stable Disposition PACU [facility] Billing Surgery - Charge Forward: Surgery Billing
[2025-05-01] MEDS: fentaNYL CITRATE INJ (*CRX) 100 MCG/2 ML VIAL 25 MCG IV PUSH ×4 (16:58→17:27)
[2025-05-01] MEDS: HYDROcodone/acetaminophen (*CRX) 5-325 MG TABLET 1 TAB PO (19:51)
[2025-05-01] MEDS: oxyCODONE HCL (*CRX) 5 MG TAB IR PO (21:26)
[2025-05-01] MEDS: LINEZOLID 600 MG TABLET PO (21:26)
[2025-05-02] VITALS (10 sets, daily range): BP systolic 115–126; BP diastolic 67–70; PULSE 87–110; RESP 14–16; TEMP 36.6–36.9; O2SAT 96–97
[2025-05-02] MEDS: CEFEPIME 2 GM in SODIUM CHLORIDE 0.9% IV 50 ML 100 ML IVPB ×2 (01:00→09:34)
[2025-05-02 05:12] LABS: Hematocrit 34.5 % (42.0-52.0); Hemoglobin 10.6 g/dL (14.0-18.0); Immature Granulocyte Percent A 2.1 % (0-0.5); Immature Platelet Fraction Pct 4.4 % (0.9-11.2); Lymphocytes Absolute Auto 1.37 K/mm3 (0.9-3.2); Mean Corpuscular HGB Conc 30.7 g/dl (32-36); Mean Corpuscular Hemoglobin 27.0 pg (26-34); Mean Corpuscular Volume 88.0 fl (80-100); Nucleated Red Blood Cells Absolute Auto 0.020 K/mm3 (0.0-0.012); Nucleated Red Blood Cells Perc 0.2 % (0.0-0.2); Platelet Count Result 188 k/mm3 (150-375); Red Blood Count 3.92 M/mm3 (4.6-6.20); White Blood Count 9.5 K/mm3 (4.5-10.0)
[2025-05-02 06:08] LABS: Alanine Aminotransferase 18 U/L (6-50); Albumin Level 2.6 g/dL (3.5-5.1); Alkaline Phosphatase 60 U/L (38-126); Anion Gap 7 mmol/L (4-12); Aspartate Amino Transferase 30 U/L (17-59); Bilirubin,Total 0.4 mg/dL (0.2-1.3); Blood Urea Nitrogen 5 mg/dL (9-20); Calcium 7.8 mg/dL (8.4-10.2); Carbon Dioxide 26 mmol/L (22-30); Chloride 105 mmol/L (98-107); Estimated CRCL calculation 278 ml/min; Estimated Glomerular Filt Rate > 60; Glucose 117 mg/dL (65-110); Magnesium 2.3 mg/dL (1.6-2.3); Potassium 3.9 mmol/L (3.4-5.0); Sodium 138 mmol/L (137-145); Total Protein 5.9 g/dL (6.3-8.2)
--- NOTE | 2025-05-02 08:20 | WPDANESPN ---
Anes - Prog Note Post-Op Date/Time: 05/02/25 08:20 Cardiovascular status: normal Respiratory status: normal Airway patency: baseline Mental status: baseline Vital Signs: Last Vital Signs Temp 36.9 C 05/02/25 04:49 Pulse 97 05/02/25 04:49 Resp 16 05/02/25 04:49 BP 120/69 05/02/25 04:49 Pulse Ox 96 05/02/25 04:49 O2 Del Method Room Air 05/01/25 20:24 O2 Flow Rate 8 05/01/25 16:50 Pain Score (VAS): 3 I/O: Intake & Output 05/01/25 05/02/25 05/02/25 23:59 07:59 15:59 Intake Total 400 450 Balance 400 450 Laboratory Tests 05/02/25 04:20 05/02/25 04:20 05/02/25 04:20 WBC 9.5 RBC 3.92 L Hgb 10.6 L Hct 34.5 L MCV 88.0 MCH 27.0 MCHC 30.7 L RDW 15.8 H Plt Count 188 MPV 10.9 H Immature Gran % (Auto) 2.1 H Neut % (Auto) 70.8 Lymph % (Auto) 14.4 L [place] % (Auto) 8.2 Eos % (Auto) 3.9 Baso % (Auto) 0.6 Lymph # (Auto) 1.37 [place] # (Auto) 0.8 H Eos # (Auto) 0.4 H Baso # (Auto) 0.1 Abs Immat Gran (auto) 0.20 H Absolute Neuts (auto) 6.8 H Absolute Nucleated RBC 0.020 H Nucleated RBC % 0.2 % Immature Plt Fraction 4.4 Sodium 138 Potassium 3.9 Chloride 105 Carbon Dioxide 26 Anion Gap 7 BUN 5 L Creatinine 0.75 Estim Creat Clear Calc 278 Estimated GFR > 60 Glucose 117 H Calcium 7.8 L Magnesium 2.3 Total Bilirubin 0.4 AST 30 ALT 18 Alkaline Phosphatase 60 Total Protein 5.9 L Albumin 2.6 L Microbiology 04/28/25 10:45 Blood Blood Culture - Preliminary 04/28/25 10:41 Blood Blood Culture - Preliminary 04/29/25 11:43 Leg Right Gram Stain - Final 04/29/25 11:43 Leg Right Aerobic Culture - Preliminary Patient Feedback: Patient satisfied with anesthetic care.
[2025-05-02] MEDS: HYDROcodone/acetaminophen (*CRX) 5-325 MG TABLET 1 TAB PO ×3 (09:33→18:22)
[2025-05-02] MEDS: ENOXAPARIN 40 MG/0.4 ML SYRINGE SUB-Q (09:33)
[2025-05-02] MEDS: LINEZOLID 600 MG TABLET PO ×2 (09:33→21:36)
[2025-05-02] MEDS: HYDROmorphone HCL INJ (*CRX) 1 MG/ML SYR IV PUSH (10:09)
--- NOTE | 2025-05-02 10:21 | P.PNGS_ITS ---
Progress Note: A&P Assessment and Plan (1) Cellulitis of leg, right: Code(s): L03.115 - Cellulitis of right lower limb Status: Acute Assessment and Plan: * Severe cellulitis of the right lower leg. S/p I&D with no significant pus pocket found. Continue IV antibiotics and compression with nancy wrap. Will elevate his right lower extremity when at rest. ID has been consulted for recommendations given the severity of his cellulitis. Hemoglobin A1C was checked on admission and 5.9, which would indicate prediabetes. (2) Abscess: Code(s): L02.91 - Cutaneous abscess, unspecified Status: Acute Assessment and Plan: * S/p I&D yesterday. There was no obvious pus pocket and no evidence of soft tissue necrotizing infection. The patient now has an open wound to the right lower anterior leg, which was packed again today with 1/2 iodoform gauze. Will consult wound care nurses to evaluate the patient for a wound VAC. Plan I have discussed the patient's case and plan of care with Dr. Gabriel. Subjective Subjective Date/Time Seen: 05/02/25 10:21 Post Op day: 1 (Incision and drainage right lower extremity abscess) Patient reports: no new complaints and afebrile Interval history: Patient seen today for dressing change. He has some minor pain in his right leg, but improved. No other complaints. Hgb A1C 5.9 on admission. Exam Const: General: comfortable and no acute distress Orientation/consciousness: patient oriented x3 Extrem: Other: Right lower leg dressing and packing removed. Wound measuring about 6 x 5 x 4 cm. There is a few scattered serous blisters around the wound. Erythema improving, not extending past the demarcated lines near the knee and at the toes. Still has diffuse edema of entire lower leg and foot. Patient able to wiggle all of his toes with slightly limited ROM of the ankle due to swelling. Objective Data Vital Signs Vital Signs: Vital Signs - 24 hr 05/01/25 12:00 05/01/25 13:55 05/01/25 14:27 Temperature 99.3 F Pulse Rate 92 95 Respiratory Rate 20 Blood Pressure 121/70 Pulse Oximetry 100 Oxygen Delivery Room Air Room Air Oxygen Flow Rate 05/01/25 16:38 05/01/25 16:50 05/01/25 17:05 Temperature 97.1 F L Pulse Rate 100 98 96 Respiratory Rate 28 H 24 H 16 Blood Pressure 130/76 131/77 118/77 Pulse Oximetry 100 100 97 Oxygen Delivery Simple Face Mask Simple Face Mask Room Air Oxygen Flow Rate 6 8 05/01/25 17:20 05/01/25 17:35 05/01/25 17:50 Temperature Pulse Rate 96 94 95 Respiratory Rate 18 16 16 Blood Pressure 129/81 128/79 127/82 Pulse Oximetry 100 98 98 Oxygen Delivery Room Air Room Air Room Air Oxygen Flow Rate 05/01/25 20:00 05/01/25 20:00 05/01/25 20:24 Temperature Pulse Rate 101 H Respiratory Rate Blood Pressure Pulse Oximetry 98 Oxygen Delivery Room Air Room Air Oxygen Flow Rate 05/01/25 20:33 05/02/25 00:00 05/02/25 04:00 Temperature 99.7 F H Pulse Rate 96 98 110 H Respiratory Rate 16 Blood Pressure 101/44 L Pulse Oximetry 100 Oxygen Delivery Oxygen Flow Rate 05/02/25 04:49 05/02/25 08:00 Temperature 98.4 F Pulse Rate 97 103 H Respiratory Rate 16 Blood Pressure 120/69 Pulse Oximetry 96 Oxygen Delivery Oxygen Flow Rate Intake/Output Intake/Output: Intake & Output 04/29/25 04/30/25 05/01/25 05/02/25 23:59 23:59 23:59 23:59 Intake Total 6440 4307.9 1450 690 Balance 6440 4307.9 1450 690 Meds/Results Medications: Active Medications Generic Name Dose Route Start Last Admin Trade Name Freq PRN Reason Stop Dose Admin Acetaminophen 1,000 mg 05/01/25 18:03 Acetaminophen 500 Mg Tablet PO Q6H PRN Mild Pain (1-3) or Fever Hydrocodone Bitart/Acetaminophen 1 tab 04/28/25 13:04 05/02/25 09:33 Hydrocodone/Acetaminophen (*Crx) 5-325 Mg Tablet PO 1 tab Q4H PRN Administration Moderate Pain (4-6) Bisacodyl 5 mg 04/28/25 13:04 Bisacodyl 5 Mg Tablet Ec PO DAILY PRN Constipation Enoxaparin Sodium 40 mg 04/29/25 09:00 05/02/25 09:33 Enoxaparin 40 Mg/0.4 Ml Syringe SUB-Q 40 mg DAILY OMAR Administration Guaifenesin/Dextromethorphan 10 ml 05/02/25 05:02 05/02/25 09:35 Guaifenesin/Dextromethorphan 10 Ml Udc PO 10 ml Q4H PRN Administration Cough Hydromorphone HCl 1 mg 05/01/25 18:03 05/02/25 10:09 Hydromorphone Hcl Inj (*Crx) 1 Mg/Ml Syr IV PUSH 1 mg Q3H PRN Administration Pain Rated 7-10 if NPO Cefepime HCl 2 gm/ Sodium 50 mls @ 100 mls/hr 04/29/25 00:00 05/02/25 09:34 Chloride IVPB 100 mls/hr Q12H OMAR Administration Linezolid 600 mg 05/01/25 21:00 05/02/25 09:33 Linezolid 600 Mg Tablet PO 600 mg Q12HR OMAR Administration Ondansetron HCl 4 mg 04/28/25 12:44 Ondansetron Inj 4 Mg/2 Ml Vial IV PUSH Q4H PRN Nausea Oxycodone HCl 5 mg 05/01/25 18:03 05/01/25 21:26 Oxycodone Hcl (*Crx) 5 Mg Tab Ir PO 5 mg Q4H PRN Administration Pain Rated 7-10 Radiology Results: ITS Impressions Chest X-Ray 04/28/25 11:30 IMPRESSION: No focal consolidation. Mild perihilar bronchial wall thickening, findings suggestive of respiratory bronchiolitis. Labs Labs: Laboratory Results - last 24 hr 05/02/25 04:20 WBC 9.5 RBC 3.92 L Hgb 10.6 L Hct 34.5 L MCV 88.0 MCH 27.0 MCHC 30.7 L RDW 15.8 H Plt Count 188 MPV 10.9 H Immature Gran % (Auto) 2.1 H Neut % (Auto) 70.8 Lymph % (Auto) 14.4 L [place] % (Auto) 8.2 Eos % (Auto) 3.9 Baso % (Auto) 0.6 Lymph # (Auto) 1.37 [place] # (Auto) 0.8 H Eos # (Auto) 0.4 H Baso # (Auto) 0.1 Abs Immat Gran (auto) 0.20 H Absolute Neuts (auto) 6.8 H Absolute Nucleated RBC 0.020 H Nucleated RBC % 0.2 % Immature Plt Fraction 4.4 Sodium 138 Potassium 3.9 Chloride 105 Carbon Dioxide 26 Anion Gap 7 BUN 5 L Creatinine 0.75 Estim Creat Clear Calc 278 Estimated GFR > 60 Glucose 117 H Calcium 7.8 L Magnesium 2.3 Total Bilirubin 0.4 AST 30 ALT 18 Alkaline Phosphatase 60 Total Protein 5.9 L Albumin 2.6 L
--- NOTE | 2025-05-02 15:48 | WPDIDCN ---
Assessment and Plan Assessment and plan (1) Cellulitis of leg, right: Code(s): L03.115 - Cellulitis of right lower limb Status: Acute Assessment and Plan: ASSESSMENT: 1. RLE abscess and cellulitis; s/p I&D 05/01/25; CX with staph aureus; Xray no osteomyelitis 2. morbid obesity 3. hypothyroidism RECOMMENDATIONS: -stop cefepime -continue linezolid -f/u on blood cxs -f/u on I&D cx sensitiivities -eventually home on po abx d/w pharmacy staff Patient was seen via video telehealth consultation with the assistance of staff. Chart, data, and patient independently reviewed. Patient was located at [facility] while I was in my [place] office. Received verbal consent from patient. (2) Abscess: Code(s): L02.91 - Cutaneous abscess, unspecified Status: Acute (3) Obesity: Code(s): E66.9 - Obesity, unspecified Status: Acute (4) Hypothyroidism: Qualifiers: Hypothyroidism type: unspecified Qualified Code(s): E03.9 - Hypothyroidism, unspecified Code(s): E03.9 - Hypothyroidism, unspecified Status: Chronic HPI Data of Consult Date/Time: 05/02/25 15:48 Requesting Physician: Sarkis Sullivan MD Primary Care Provider: Lisa Mckeon APRN Consult Narrative Reason for consult: RLE abscess Narrative: Jerrell Llamas Jr. is a 24 year old male with pmhx/o morbid obesity, hypothyroidism, presesnted to ED wt RLE abscess. No known trauma. +fever here. Had a wound for a couple weeks and then went to then here. Had I&D 05/01. Cx with staph aureus so far. BCX in process. On linezolid and cefepime. Xray no osteomyelitis. ID consulted for abx mgmt. [facility] Past Medical History Medical History Anxiety Hypothyroidism Impaired fasting glucose Hidradenitis suppurativa Depression Surgical History Surgical History History of incision and drainage infected dog bite Family History Family History Father Alcoholism Grandparent Alcoholism Depression Heart disease Cerebrovascular accident Asthma Chronic obstructive pulmonary disease Grandparent Depression Grandparent Diabetes mellitus Alcoholism Social History Social History Social History: will smoke up to 2 cigarettes per day Smoking status: Current some day smoker Tobacco type: cigarettes Alcohol intake: current Drinks per week: 1 Substance use: current Substance use type: marijuana Last use: 01/26/2025 Lack of Transportation: No Lack of Food: Never True Current Housing: I Have Housing Concerned About Future Housing: No Difficulty Paying Gas/Electric Bills: No Difficulty Paying for Meds: No Currently Unemployed: No Education: Bachelor's Degree Difficulty w/ Childcare or Family Care: No Occupation/Education: occupation 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 [employer] Gender identity (if verbalized by the patient): Male Spiritual care concerns: No Meds Home Medications and Allergies Home Medications ?Medication ?Instructions ?Recorded ?Confirmed ?Type loratadine 10 mg tablet (Allergy 10 mg PO DAILY 03/01/25 04/28/25 History Relief (loratadine)) levothyroxine 150 mcg tablet 150 mcg PO DAILY #90 tabs 03/03/25 04/28/25 Rx (Unithroid) Allergies Allergy/AdvReac Type Severity Reaction Status Date / Time No Known Allergies Allergy Verified 04/28/25 10:51 Vital Signs Vital Signs - 24 hr 05/01/25 16:38 05/01/25 16:50 05/01/25 17:05 Temperature 97.1 F L Pulse Rate 100 98 96 Respiratory Rate 28 H 24 H 16 Blood Pressure 130/76 131/77 118/77 Pulse Oximetry 100 100 97 Oxygen Delivery Simple Face Mask Simple Face Mask Room Air Oxygen Flow Rate 6 8 05/01/25 17:20 05/01/25 17:35 05/01/25 17:50 Temperature Pulse Rate 96 94 95 Respiratory Rate 18 16 16 Blood Pressure 129/81 128/79 127/82 Pulse Oximetry 100 98 98 Oxygen Delivery Room Air Room Air Room Air Oxygen Flow Rate 05/01/25 20:00 05/01/25 20:00 05/01/25 20:24 Temperature Pulse Rate 101 H Respiratory Rate Blood Pressure Pulse Oximetry 98 Oxygen Delivery Room Air Room Air Oxygen Flow Rate 05/01/25 20:33 05/02/25 00:00 05/02/25 04:00 Temperature 99.7 F H Pulse Rate 96 98 110 H Respiratory Rate 16 Blood Pressure 101/44 L Pulse Oximetry 100 Oxygen Delivery Oxygen Flow Rate 05/02/25 04:49 05/02/25 08:00 05/02/25 10:00 Temperature 98.4 F Pulse Rate 97 103 H Respiratory Rate 16 Blood Pressure 120/69 Pulse Oximetry 96 Oxygen Delivery Room Air Oxygen Flow Rate 05/02/25 12:00 05/02/25 14:00 Temperature 98.0 F Pulse Rate 90 91 Respiratory Rate 14 Blood Pressure 115/67 Pulse Oximetry 97 Oxygen Delivery Oxygen Flow Rate Exam Narrative: morbidly obese, on room air, non-toxic, NAD RLE dressed; pedal edema and erythema; some erythema proximal to the dressing Results Labs 05/02/25 04:20 05/02/25 04:20 Labs: Short CBC 05/02/25 Range/Units 04:20 WBC 9.5 (4.5-10.0) K/mm3 Hgb 10.6 L (14.0-18.0) g/dL Hct 34.5 L (42.0-52.0) % Plt Count 188 (150-375) k/mm3 BMP 05/02/25 04:20 Sodium 138 Potassium 3.9 Chloride 105 Carbon Dioxide 26 BUN 5 L Creatinine 0.75 Glucose 117 H Calcium 7.8 L Liver Function 05/02/25 Range/Units 04:20 Total Bilirubin 0.4 (0.2-1.3) mg/dL AST 30 (17-59) U/L ALT 18 (6-50) U/L Alkaline Phosphatase 60 (38-126) U/L Albumin 2.6 L (3.5-5.1) g/dL
--- NOTE | 2025-05-02 17:28 | PM.IMPN ---
Progress Note: A&P Assessment and Plan (1) Pre-diabetes: Code(s): R73.03 - Prediabetes Status: Chronic (2) Hypothyroidism: Qualifiers: Hypothyroidism type: unspecified Qualified Code(s): E03.9 - Hypothyroidism, unspecified Code(s): E03.9 - Hypothyroidism, unspecified Status: Chronic (3) Obesity: Code(s): E66.9 - Obesity, unspecified Status: Acute (4) Cellulitis of leg, right: Code(s): L03.115 - Cellulitis of right lower limb Status: Acute Plan Cellulitis improving. Status post exploration with no pus pocket. Infectious Disease following, continue to appreciate recommendations. On 05/02/2025 discontinue cefepime, continue linezolid. Upon wound culture and blood cultures. Patient wishes to be full code. We talked about lifestyle modifications. His friend is a cook, and has helped to improve his diet. His boss at work schedules regular light exercise breaks at the [employer]. Congratulated patient and advise continued lifestyle modification for his obesity. Advised close follow-up with primary care physician. Subjective Date/time seen: 05/02/25 17:28 Interval history: No major acute overnight events. Patient reports pain intermittently the right lower extremity but improved compared to the day prior. Denies shortness of breath, chest pain, fever. He thinks the erythema is greatly improved. Review of Systems Review of Systems: All systems reviewed & are unremarkable except as noted in HPI and below (Subjective) Exam Const: General: comfortable and no acute distress Other: A&O x3, obese. HENMT: Mouth: Yes moist mucous membranes Eyes: Pupils: Equal, round and reactive pupils present Neck: Neck: supple Resp: Effort & Inspection: normal respiratory effort Cardio: Rate: regular rate Rhythm: regular rhythm GI: Inspection: non-distended GI Palp: Yes Soft to palpation Extrem: Other: 6 x 5 x 4 cm wound. Erythema improved compared to day prior. Edema. Neurovascular exam intact Objective Data Vital Signs Vital Signs: Vital Signs - 24 hr 05/01/25 17:35 05/01/25 17:50 05/01/25 20:00 Temperature Pulse Rate 94 95 Respiratory Rate 16 16 Blood Pressure 128/79 127/82 Pulse Oximetry 98 98 Oxygen Delivery Room Air Room Air Room Air 05/01/25 20:00 05/01/25 20:24 05/01/25 20:33 Temperature 99.7 F H Pulse Rate 101 H 96 Respiratory Rate 16 Blood Pressure 101/44 L Pulse Oximetry 98 100 Oxygen Delivery Room Air 05/02/25 00:00 05/02/25 04:00 05/02/25 04:49 Temperature 98.4 F Pulse Rate 98 110 H 97 Respiratory Rate 16 Blood Pressure 120/69 Pulse Oximetry 96 Oxygen Delivery 05/02/25 08:00 05/02/25 10:00 05/02/25 12:00 Temperature Pulse Rate 103 H 90 Respiratory Rate Blood Pressure Pulse Oximetry Oxygen Delivery Room Air 05/02/25 14:00 05/02/25 16:00 Temperature 98.0 F Pulse Rate 91 87 Respiratory Rate 14 Blood Pressure 115/67 Pulse Oximetry 97 Oxygen Delivery Intake/Output Intake/Output: Intake & Output 04/29/25 04/30/25 05/01/25 05/02/25 23:59 23:59 23:59 23:59 Intake Total 6440 4307.9 1450 810 Balance 6440 4307.9 1450 810 Meds/Results Medications: Active Medications Generic Name Dose Route Start Last Admin Trade Name Freq PRN Reason Stop Dose Admin Acetaminophen 1,000 mg 05/01/25 18:03 Acetaminophen 500 Mg Tablet PO Q6H PRN Mild Pain (1-3) or Fever Hydrocodone Bitart/Acetaminophen 1 tab 04/28/25 13:04 05/02/25 14:26 Hydrocodone/Acetaminophen (*Crx) 5-325 Mg Tablet PO 1 tab Q4H PRN Administration Moderate Pain (4-6) Bisacodyl 5 mg 04/28/25 13:04 Bisacodyl 5 Mg Tablet Ec PO DAILY PRN Constipation Enoxaparin Sodium 40 mg 04/29/25 09:00 05/02/25 09:33 Enoxaparin 40 Mg/0.4 Ml Syringe SUB-Q 40 mg DAILY OMAR Administration Guaifenesin/Dextromethorphan 10 ml 05/02/25 05:02 05/02/25 14:27 Guaifenesin/Dextromethorphan 10 Ml Udc PO 10 ml Q4H PRN Administration Cough Hydromorphone HCl 1 mg 05/01/25 18:03 05/02/25 10:09 Hydromorphone Hcl Inj (*Crx) 1 Mg/Ml Syr IV PUSH 1 mg Q3H PRN Administration Pain Rated 7-10 if NPO Linezolid 600 mg 05/01/25 21:00 05/02/25 09:33 Linezolid 600 Mg Tablet PO 600 mg Q12HR OMAR Administration Ondansetron HCl 4 mg 04/28/25 12:44 Ondansetron Inj 4 Mg/2 Ml Vial IV PUSH Q4H PRN Nausea Oxycodone HCl 5 mg 05/01/25 18:03 05/01/25 21:26 Oxycodone Hcl (*Crx) 5 Mg Tab Ir PO 5 mg Q4H PRN Administration Pain Rated 7-10 Radiology Results: ITS Impressions Chest X-Ray 05/02/25 14:15 IMPRESSION: 1: NO ACUTE CARDIOPULMONARY DISEASE. Labs Labs: Laboratory Results - last 24 hr 05/02/25 04:20 WBC 9.5 RBC 3.92 L Hgb 10.6 L Hct 34.5 L MCV 88.0 MCH 27.0 MCHC 30.7 L RDW 15.8 H Plt Count 188 MPV 10.9 H Immature Gran % (Auto) 2.1 H Neut % (Auto) 70.8 Lymph % (Auto) 14.4 L [place] % (Auto) 8.2 Eos % (Auto) 3.9 Baso % (Auto) 0.6 Lymph # (Auto) 1.37 [place] # (Auto) 0.8 H Eos # (Auto) 0.4 H Baso # (Auto) 0.1 Abs Immat Gran (auto) 0.20 H Absolute Neuts (auto) 6.8 H Absolute Nucleated RBC 0.020 H Nucleated RBC % 0.2 % Immature Plt Fraction 4.4 Sodium 138 Potassium 3.9 Chloride 105 Carbon Dioxide 26 Anion Gap 7 BUN 5 L Creatinine 0.75 Estim Creat Clear Calc 278 Estimated GFR > 60 Glucose 117 H Calcium 7.8 L Magnesium 2.3 Total Bilirubin 0.4 AST 30 ALT 18 Alkaline Phosphatase 60 Total Protein 5.9 L Albumin 2.6 L
[2025-05-03] VITALS (11 sets, daily range): BP systolic 125–146; BP diastolic 69–75; PULSE 87–99; RESP 16–20; TEMP 36.4–37; O2SAT 95–99
[2025-05-03 05:11] LABS: Hematocrit 37.1 % (42.0-52.0); Hemoglobin 11.6 g/dL (14.0-18.0); Immature Granulocyte Percent A 5.5 % (0-0.5); Lymphocytes Absolute Auto 1.93 K/mm3 (0.9-3.2); Mean Corpuscular HGB Conc 31.3 g/dl (32-36); Mean Corpuscular Hemoglobin 27.0 pg (26-34); Mean Corpuscular Volume 86.3 fl (80-100); Nucleated Red Blood Cells Absolute Auto 0.060 K/mm3 (0.0-0.012); Nucleated Red Blood Cells Perc 0.6 % (0.0-0.2); Platelet Count Result 292 k/mm3 (150-375); Red Blood Count 4.30 M/mm3 (4.6-6.20); White Blood Count 10.7 K/mm3 (4.5-10.0)
[2025-05-03 05:38] LABS: Anion Gap 7 mmol/L (4-12); Blood Urea Nitrogen 3 mg/dL (9-20); Calcium 8.3 mg/dL (8.4-10.2); Carbon Dioxide 27 mmol/L (22-30); Chloride 103 mmol/L (98-107); Estimated CRCL calculation 296 ml/min; Estimated Glomerular Filt Rate > 60; Glucose 104 mg/dL (65-110); Potassium 3.9 mmol/L (3.4-5.0); Sodium 137 mmol/L (137-145)
[2025-05-03] MEDS: HYDROmorphone HCL INJ (*CRX) 1 MG/ML SYR IV PUSH (09:01)
[2025-05-03] MEDS: LINEZOLID 600 MG TABLET PO (09:03)
[2025-05-03] MEDS: ENOXAPARIN 40 MG/0.4 ML SYRINGE SUB-Q (09:03)
--- NOTE | 2025-05-03 09:30 | PCWOUND ---
WOCN NOTE Went to assess patient right lower extremity wound for wound vac per surgery request. Periwound tissue started to blister and peel due to cellulitis and inflammation. Still waiting to hear what patient's financial responsibility will be for a home wound vac. Patient was given financial information on what it would cost him potentially to come to the wound center for dressing changes. Patient feels like he wants to proceed with a wound vac, but wants a little time to think about it. Will reassess patient tomorrow to see what he has decided.
--- NOTE | 2025-05-03 09:55 | P.PNGS_ITS ---
Progress Note: A&P Assessment and Plan (1) Cellulitis of leg, right: Code(s): L03.115 - Cellulitis of right lower limb Status: Acute Assessment and Plan: * Severe cellulitis of the right lower leg is slowly improving with antibiotics. Continue using nancy wrap for compression. ID recommendations appreciated. Continue linezolid. R leg wound culture growing MSSA. I&D culture pending. (2) Abscess: Code(s): L02.91 - Cutaneous abscess, unspecified Status: Acute Assessment and Plan: * S/p I&D on 05/01. There was no obvious pus pocket and no evidence of soft tissue necrotizing infection. The patient now has an open wound to the right lower anterior leg that is being packed with 1/2 iodoform gauze once daily. Discussed the option of wound VAC therapy with the patient versus daily dressing changes. He would be a candidate for wound VAC therapy, but this wou ld come with an [id number] cost that the patient is considering. He does have two options of people who could potentially help with dressing changes, but is concerned about this burden for them daily. He is unable to reach his lower leg to do dressings himself. Will continue to work on wound VAC approval, and the patient is going to make a decision by tomorrow if he would rather do daily dressing changes vs wound VAC therapy with dressing changes in the wound clinic 3x's a week. Plan I have discussed the patient's case and plan of care with Dr. Gabriel. Subjective Subjective Date/Time Seen: 05/03/25 09:55 Post Op day: 2 (Incision and drainage right lower extremity abscess) Patient reports: no new complaints and afebrile Interval history: Patient reports minimal pain in his right leg today. No acute events overnight. No specific complaints at this time. Exam Extrem: Other: Right lower leg dressing removed. No purulent drainage. There is a few scattered serous blisters around the wound with some epithelial sloughing around the wound edges. Erythema appears about the same as yesterday, it does not extend past the demarcated lines near the knee and at the toes. Still has diffuse edema of entire lower leg and foot. Patient able to wiggle all of his toes with slightly limited ROM of the ankle due to swelling. Objective Data Vital Signs Vital Signs: Vital Signs - 24 hr 05/02/25 10:00 09/09/25 12:00 05/02/25 14:00 Temperature 98.0 F Pulse Rate 90 91 Respiratory Rate 14 Blood Pressure 115/67 Pulse Oximetry 97 Oxygen Delivery Room Air 05/02/25 16:00 05/02/25 20:00 05/02/25 20:00 Temperature Pulse Rate 87 87 Respiratory Rate Blood Pressure Pulse Oximetry Oxygen Delivery Room Air 05/02/25 20:09 05/02/25 20:22 05/03/25 00:00 Temperature 97.9 F Pulse Rate 87 90 Respiratory Rate 16 Blood Pressure 126/70 Pulse Oximetry 97 97 Oxygen Delivery Room Air 05/03/25 04:00 05/03/25 04:03 05/03/25 07:54 Temperature 98.3 F 98.3 F Pulse Rate 94 92 88 Respiratory Rate 16 19 Blood Pressure 138/69 125/70 Pulse Oximetry 95 97 Oxygen Delivery Intake/Output Intake/Output: Intake & Output 04/30/25 05/01/25 05/02/25 05/03/25 23:59 23:59 23:59 23:59 Intake Total 4307.9 1450 2665 640 Balance 4307.9 1450 2665 640 Meds/Results Medications: Active Medications Generic Name Dose Route Start Last Admin Trade Name Freq PRN Reason Stop Dose Admin Acetaminophen 1,000 mg 05/01/25 18:03 Acetaminophen 500 Mg Tablet PO Q6H PRN Mild Pain (1-3) or Fever Hydrocodone Bitart/Acetaminophen 1 tab 04/28/25 13:04 05/02/25 18:22 Hydrocodone/Acetaminophen (*Crx) 5-325 Mg Tablet PO 1 tab Q4H PRN Administration Moderate Pain (4-6) Bisacodyl 5 mg 04/28/25 13:04 Bisacodyl 5 Mg Tablet Ec PO DAILY PRN Constipation Enoxaparin Sodium 40 mg 04/29/25 09:00 05/03/25 09:03 Enoxaparin 40 Mg/0.4 Ml Syringe SUB-Q 40 mg DAILY OMAR Administration Guaifenesin/Dextromethorphan 10 ml 05/02/25 05:02 05/02/25 18:22 Guaifenesin/Dextromethorphan 10 Ml Udc PO 10 ml Q4H PRN Administration Cough Hydromorphone HCl 1 mg 05/01/25 18:03 05/03/25 09:01 Hydromorphone Hcl Inj (*Crx) 1 Mg/Ml Syr IV PUSH 1 mg Q3H PRN Administration Pain Rated 7-10 if NPO Linezolid 600 mg 05/01/25 21:00 05/03/25 09:03 Linezolid 600 Mg Tablet PO 600 mg Q12HR OMAR Administration Ondansetron HCl 4 mg 04/28/25 12:44 Ondansetron Inj 4 Mg/2 Ml Vial IV PUSH Q4H PRN Nausea Oxycodone HCl 5 mg 05/01/25 18:03 05/01/25 21:26 Oxycodone Hcl (*Crx) 5 Mg Tab Ir PO 5 mg Q4H PRN Administration Pain Rated 7-10 Radiology Results: ITS Impressions Chest X-Ray 05/02/25 14:15 IMPRESSION: 1: NO ACUTE CARDIOPULMONARY DISEASE. Labs Labs: Laboratory Results - last 24 hr 05/03/25 04:25 WBC 10.7 H RBC 4.30 L Hgb 11.6 L Hct 37.1 L MCV 86.3 MCH 27.0 MCHC 31.3 L RDW 15.7 H Plt Count 292 D MPV 10.9 H Immature Gran % (Auto) 5.5 H Neut % (Auto) 63.8 Lymph % (Auto) 18.0 L [place] % (Auto) 6.7 Eos % (Auto) 5.2 H Baso % (Auto) 0.8 Lymph # (Auto) 1.93 [place] # (Auto) 0.7 H Eos # (Auto) 0.6 H Baso # (Auto) 0.1 Abs Immat Gran (auto) 0.59 H Absolute Neuts (auto) 6.8 H Absolute Nucleated RBC 0.060 H Nucleated RBC % 0.6 H Sodium 137 Potassium 3.9 Chloride 103 Carbon Dioxide 27 Anion Gap 7 BUN 3 L Creatinine 0.70 Estim Creat Clear Calc 296 Estimated GFR > 60 Glucose 104 Calcium 8.3 L
[2025-05-03] MEDS: ceFAZolin 2 GM in SODIUM CHLORIDE 0.9% IV 50 ML 100 ML IVPB ×2 (14:47→22:18)
--- NOTE | 2025-05-03 18:39 | P.PNIM_ITS ---
Progress Note: A&P Assessment and Plan (1) Pre-diabetes: Code(s): R73.03 - Prediabetes Status: Chronic (2) Hypothyroidism: Qualifiers: Hypothyroidism type: unspecified Qualified Code(s): E03.9 - Hypothyroidism, unspecified Code(s): E03.9 - Hypothyroidism, unspecified Status: Chronic (3) Obesity: Code(s): E66.9 - Obesity, unspecified Status: Acute (4) Cellulitis of leg, right: Code(s): L03.115 - Cellulitis of right lower limb Status: Acute Plan Cellulitis improving. Status post exploration with no pus pocket. Infectious Disease following, continue to appreciate recommendations. Status post I&D on 05/01. On 05/02/2025 discontinue cefepime, continue linezolid. On 05/03 physician to cefazolin. Follow wound culture and blood cultures. Slight bump in WBC to 10.7 today. Continue to monitor. General surgery managing wound. There discussing the option of wound VAC therapy versus daily dressing changes. Patient is amenable at this time, exploring cost options. [employer] levothyroxine. Follow-up with primary physician. Patient wishes to be full code. We talked about lifestyle modifications. His friend is a cook, and has helped to improve his diet. His boss at work schedules regular light exercise breaks at the [employer]. Congratulated patient and advise continued lifestyle modification for his obesity. Advised close follow-up with primary care physician. Subjective Date/time seen: 05/03/25 18:39 Interval history: No major acute overnight events. Patient has no new complaints to report. He is amenable to wound VAC. Review of Systems Review of Systems: All systems reviewed & are unremarkable except as noted in HPI and below (Subjective) Exam Const: General: comfortable and no acute distress Eyes: Pupils: Equal, round and reactive pupils present Neck: Neck: supple Resp: Effort & Inspection: normal respiratory effort Auscultation: clear to auscultation bilaterally Cardio: Rate: regular rate Rhythm: regular rhythm Extrem: General: edema Objective Data Vital Signs Vital Signs: Vital Signs - 24 hr 05/02/25 20:00 05/02/25 20:00 05/02/25 20:09 Temperature Pulse Rate 87 Respiratory Rate Blood Pressure Pulse Oximetry 97 Oxygen Delivery Room Air Room Air 05/02/25 20:22 05/03/25 00:00 05/03/25 04:00 Temperature 97.9 F Pulse Rate 87 90 94 Respiratory Rate 16 Blood Pressure 126/70 Pulse Oximetry 97 Oxygen Delivery 05/03/25 04:03 05/03/25 07:54 05/03/25 08:03 Temperature 98.3 F 98.3 F Pulse Rate 92 88 87 Respiratory Rate 16 19 Blood Pressure 138/69 125/70 Pulse Oximetry 95 97 Oxygen Delivery 05/03/25 09:03 05/03/25 12:00 05/03/25 13:59 Temperature 98.6 F Pulse Rate 96 88 Respiratory Rate 19 16 Blood Pressure 132/75 Pulse Oximetry 97 99 Oxygen Delivery Room Air 05/03/25 16:00 Temperature Pulse Rate 89 Respiratory Rate Blood Pressure Pulse Oximetry Oxygen Delivery Intake/Output Intake/Output: Intake & Output 04/30/25 05/01/25 05/02/25 05/03/25 23:59 23:59 23:59 23:59 Intake Total 4307.9 1450 2665 2180 Balance 4307.9 1450 2665 2180 Meds/Results Medications: Active Medications Generic Name Dose Route Start Last Admin Trade Name Freq PRN Reason Stop Dose Admin Acetaminophen 1,000 mg 05/01/25 18:03 Acetaminophen 500 Mg Tablet PO Q6H PRN Mild Pain (1-3) or Fever Hydrocodone Bitart/Acetaminophen 1 tab 04/28/25 13:04 05/02/25 18:22 Hydrocodone/Acetaminophen (*Crx) 5-325 Mg Tablet PO 1 tab Q4H PRN Administration Moderate Pain (4-6) Bisacodyl 5 mg 04/28/25 13:04 Bisacodyl 5 Mg Tablet Ec PO DAILY PRN Constipation Enoxaparin Sodium 40 mg 04/29/25 09:00 05/03/25 09:03 Enoxaparin 40 Mg/0.4 Ml Syringe SUB-Q 40 mg DAILY OMAR Administration Guaifenesin/Dextromethorphan 10 ml 05/02/25 05:02 05/02/25 18:22 Guaifenesin/Dextromethorphan 10 Ml Udc PO 10 ml Q4H PRN Administration Cough Hydromorphone HCl 1 mg 05/01/25 18:03 05/03/25 09:01 Hydromorphone Hcl Inj (*Crx) 1 Mg/Ml Syr IV PUSH 1 mg Q3H PRN Administration Pain Rated 7-10 if NPO Cefazolin Sodium 2 gm/ Sodium 50 mls @ 100 mls/hr 05/03/25 14:00 05/03/25 15:17 Chloride IVPB Infused Q8H OMAR Infusion Ondansetron HCl 4 mg 04/28/25 12:44 Ondansetron Inj 4 Mg/2 Ml Vial IV PUSH Q4H PRN Nausea Oxycodone HCl 5 mg 05/01/25 18:03 05/01/25 21:26 Oxycodone Hcl (*Crx) 5 Mg Tab Ir PO 5 mg Q4H PRN Administration Pain Rated 7-10 Radiology Results: ITS Impressions Chest X-Ray 05/02/25 14:15 IMPRESSION: 1: NO ACUTE CARDIOPULMONARY DISEASE. Labs Labs: Laboratory Results - last 24 hr 05/03/25 04:25 WBC 10.7 H RBC 4.30 L Hgb 11.6 L Hct 37.1 L MCV 86.3 MCH 27.0 MCHC 31.3 L RDW 15.7 H Plt Count 292 D MPV 10.9 H Immature Gran % (Auto) 5.5 H Neut % (Auto) 63.8 Lymph % (Auto) 18.0 L [place] % (Auto) 6.7 Eos % (Auto) 5.2 H Baso % (Auto) 0.8 Lymph # (Auto) 1.93 [place] # (Auto) 0.7 H Eos # (Auto) 0.6 H Baso # (Auto) 0.1 Abs Immat Gran (auto) 0.59 H Absolute Neuts (auto) 6.8 H Absolute Nucleated RBC 0.060 H Nucleated RBC % 0.6 H Sodium 137 Potassium 3.9 Chloride 103 Carbon Dioxide 27 Anion Gap 7 BUN 3 L Creatinine 0.70 Estim Creat Clear Calc 296 Estimated GFR > 60 Glucose 104 Calcium 8.3 L
--- NOTE | 2025-05-03 19:02 | P.PNINF_ITS ---
Progress Note: A&P Assessment and Plan (1) Cellulitis of leg, right: Code(s): L03.115 - Cellulitis of right lower limb Status: Acute Assessment and Plan: ASSESSMENT: 1. RLE abscess and cellulitis; s/p I&D 05/01/25; CX with MSSA; Xray no osteomyelitis 2. morbid obesity 3. hypothyroidism RECOMMENDATIONS: change abx to IV ancef -f/u on blood cxs-->so far NGTD -eventually home on po keflex d/w pharmacy staff Patient was seen via video telehealth consultation with the assistance of staff. Chart, data, and patient independently reviewed. Patient was located at [facility] while I was in my [place] office. Received verbal consent from patient. (2) Abscess: Code(s): L02.91 - Cutaneous abscess, unspecified Status: Acute (3) Obesity: Code(s): E66.9 - Obesity, unspecified Status: Acute (4) Hypothyroidism: Qualifiers: Hypothyroidism type: unspecified Qualified Code(s): E03.9 - Hypothyroidism, unspecified Code(s): E03.9 - Hypothyroidism, unspecified Status: Chronic Subjective Date/time seen: 05/03/25 19:02 Interval history: a little pain in RLE Exam Narrative: NAD, non-toxic, on room air face flushed morbidly obese RLE dressed-->proximal erythema Objective Data Vital Signs Vital Signs: Vital Signs - 24 hr 05/02/25 20:00 05/02/25 20:00 05/02/25 20:09 Temperature Pulse Rate 87 Respiratory Rate Blood Pressure Pulse Oximetry 97 Oxygen Delivery Room Air Room Air 05/02/25 20:22 05/03/25 00:00 05/03/25 04:00 Temperature 97.9 F Pulse Rate 87 90 94 Respiratory Rate 16 Blood Pressure 126/70 Pulse Oximetry 97 Oxygen Delivery 05/03/25 04:03 05/03/25 07:54 05/03/25 08:03 Temperature 98.3 F 98.3 F Pulse Rate 92 88 87 Respiratory Rate 16 19 Blood Pressure 138/69 125/70 Pulse Oximetry 95 97 Oxygen Delivery 05/03/25 09:03 05/03/25 12:00 05/03/25 13:59 Temperature 98.6 F Pulse Rate 96 88 Respiratory Rate 19 16 Blood Pressure 132/75 Pulse Oximetry 97 99 Oxygen Delivery Room Air 05/03/25 16:00 Temperature Pulse Rate 89 Respiratory Rate Blood Pressure Pulse Oximetry Oxygen Delivery Intake/Output Intake/Output: Intake & Output 04/30/25 05/01/25 05/02/25 05/03/25 23:59 23:59 23:59 23:59 Intake Total 4307.9 1450 2665 2180 Balance 4307.9 1450 2665 2180 Meds/Results Medications: Active Medications Generic Name Dose Route Start Last Admin Trade Name Freq PRN Reason Stop Dose Admin Acetaminophen 1,000 mg 05/01/25 18:03 Acetaminophen 500 Mg Tablet PO Q6H PRN Mild Pain (1-3) or Fever Hydrocodone Bitart/Acetaminophen 1 tab 04/28/25 13:04 05/02/25 18:22 Hydrocodone/Acetaminophen (*Crx) 5-325 Mg Tablet PO 1 tab Q4H PRN Administration Moderate Pain (4-6) Bisacodyl 5 mg 04/28/25 13:04 Bisacodyl 5 Mg Tablet Ec PO DAILY PRN Constipation Enoxaparin Sodium 40 mg 04/29/25 09:00 05/03/25 09:03 Enoxaparin 40 Mg/0.4 Ml Syringe SUB-Q 40 mg DAILY OMAR Administration Guaifenesin/Dextromethorphan 10 ml 05/02/25 05:02 05/02/25 18:22 Guaifenesin/Dextromethorphan 10 Ml Udc PO 10 ml Q4H PRN Administration Cough Hydromorphone HCl 1 mg 05/01/25 18:03 05/03/25 09:01 Hydromorphone Hcl Inj (*Crx) 1 Mg/Ml Syr IV PUSH 1 mg Q3H PRN Administration Pain Rated 7-10 if NPO Cefazolin Sodium 2 gm/ Sodium 50 mls @ 100 mls/hr 05/03/25 14:00 05/03/25 15:17 Chloride IVPB Infused Q8H OMAR Infusion Levothyroxine Sodium 150 mcg 05/03/25 18:40 Levothyroxine Sodium 150 Mcg Tablet PO DAILY OMAR Loratadine 10 mg 05/04/25 09:00 Loratadine 10 Mg Tablet PO DAILY OMAR Ondansetron HCl 4 mg 04/28/25 12:44 Ondansetron Inj 4 Mg/2 Ml Vial IV PUSH Q4H PRN Nausea Oxycodone HCl 5 mg 05/01/25 18:03 05/01/25 21:26 Oxycodone Hcl (*Crx) 5 Mg Tab Ir PO 5 mg Q4H PRN Administration Pain Rated 7-10 Radiology Results: ITS Impressions Chest X-Ray 05/02/25 14:15 IMPRESSION: 1: NO ACUTE CARDIOPULMONARY DISEASE. Labs Labs: Laboratory Results - last 24 hr 05/03/25 04:25 WBC 10.7 H RBC 4.30 L Hgb 11.6 L Hct 37.1 L MCV 86.3 MCH 27.0 MCHC 31.3 L RDW 15.7 H Plt Count 292 D MPV 10.9 H Immature Gran % (Auto) 5.5 H Neut % (Auto) 63.8 Lymph % (Auto) 18.0 L [place] % (Auto) 6.7 Eos % (Auto) 5.2 H Baso % (Auto) 0.8 Lymph # (Auto) 1.93 [place] # (Auto) 0.7 H Eos # (Auto) 0.6 H Baso # (Auto) 0.1 Abs Immat Gran (auto) 0.59 H Absolute Neuts (auto) 6.8 H Absolute Nucleated RBC 0.060 H Nucleated RBC % 0.6 H Sodium 137 Potassium 3.9 Chloride 103 Carbon Dioxide 27 Anion Gap 7 BUN 3 L Creatinine 0.70 Estim Creat Clear Calc 296 Estimated GFR > 60 Glucose 104 Calcium 8.3 L
[2025-05-04] VITALS (9 sets, daily range): BP systolic 112–133; BP diastolic 62–76; PULSE 83–111; RESP 20; TEMP 36.2–36.4; O2SAT 97–99
[2025-05-04 04:54] LABS: Hematocrit 34.4 % (42.0-52.0); Hemoglobin 10.3 g/dL (14.0-18.0); Immature Granulocyte Percent A 9.4 % (0-0.5); Lymphocytes Absolute Auto 1.79 K/mm3 (0.9-3.2); Mean Corpuscular HGB Conc 29.9 g/dl (32-36); Mean Corpuscular Hemoglobin 26.4 pg (26-34); Mean Corpuscular Volume 88.2 fl (80-100); Nucleated Red Blood Cells Absolute Auto 0.070 K/mm3 (0.0-0.012); Nucleated Red Blood Cells Perc 0.7 % (0.0-0.2); Platelet Count Result 311 k/mm3 (150-375); Red Blood Count 3.90 M/mm3 (4.6-6.20); White Blood Count 9.5 K/mm3 (4.5-10.0)
[2025-05-04 05:17] LABS: Anion Gap 6 mmol/L (4-12); Blood Urea Nitrogen 6 mg/dL (9-20); Calcium 8.1 mg/dL (8.4-10.2); Carbon Dioxide 29 mmol/L (22-30); Chloride 104 mmol/L (98-107); Estimated CRCL calculation 242 ml/min; Estimated Glomerular Filt Rate > 60; Glucose 108 mg/dL (65-110); Magnesium 2.3 mg/dL (1.6-2.3); Potassium 3.9 mmol/L (3.4-5.0); Sodium 139 mmol/L (137-145)
[2025-05-04] MEDS: LEVOTHYROXINE SODIUM 150 MCG TABLET PO (06:02)
[2025-05-04] MEDS: ceFAZolin 2 GM in SODIUM CHLORIDE 0.9% IV 50 ML 100 ML IVPB ×3 (06:02→21:27)
[2025-05-04] MEDS: ENOXAPARIN 40 MG/0.4 ML SYRINGE SUB-Q (08:32)
[2025-05-04] MEDS: LORATADINE 10 MG TABLET PO (08:32)
[2025-05-04] MEDS: MUPIROCIN 2% OINT 22 GM TUBE 1 APPLIC TOPICAL (11:17)
--- NOTE | 2025-05-04 12:22 | P.PNGS_ITS ---
Progress Note: A&P Assessment and Plan (1) Cellulitis of leg, right: Code(s): L03.115 - Cellulitis of right lower limb Status: Acute Assessment and Plan: * Severe cellulitis of the right lower leg is slowly improving with antibiotics. Continue using nancy wrap for compression. ID recommendations appreciated. Continue cefazolin. R leg wound culture growing MSSA. I&D culture with no aerobic growth. Still awaiting anaerobic results. Muprocen ointment added for topical treatment of blistered and sloughing skin surrounding the wound. (2) Abscess: Code(s): L02.91 - Cutaneous abscess, unspecified Status: Acute Assessment and Plan: * S/p I&D on 05/01. Wound appears to be healing well with 100% healthy granulation tissue. No tracking or undermining. No purulent drainage. * Mupirocin ointment to be applied daily to blistering and sloughing skin directly surrounding the wound cavity. Continue daily wound care -pack with 1/2 inch iodoform gauze, cover with ABD, and wrap with Kerlix gauze. Patient is then to wear Tubigrip compression sleeve over the dressing and change daily. Plan I have discussed the patient's case and plan of care with Dr. Gabriel. Subjective Subjective Date/Time Seen: 05/04/25 12:22 Post Op day: 3 Patient reports: no new complaints and feels better Interval history: No acute events overnight. Afebrile. WBC 9.5. Patient notes pain is about a 2 at rest and goes up to a 4-5 when ambulating. Exam Const: General: comfortable and no acute distress Extrem: Other: Right lower leg dressing and packing changed with wound care nurses at bedside. Patient tolerated well. Wound bed 100% healthy red tissue. Wound is a 4x4.5x2 cavity with no tunneling or undermining. Some serosanguineous drainage present on gauze. No purulence. Surrounding tissue blistered and peeling. Sloughed off at bedside and exposed serous fluid. Again, no purulence. At first glance, it appeared that redness had spread up the leg, but after elevating the leg for a period of time it was found that the redness was likely positional. No new ulcer s or signs of infection. Objective Data Vital Signs Vital Signs: Vital Signs - 24 hr 05/03/25 13:59 05/03/25 16:00 05/03/25 19:50 Temperature 98.6 F 97.6 F Pulse Rate 88 89 93 Respiratory Rate 16 20 Blood Pressure 132/75 146/73 H Pulse Oximetry 99 97 Oxygen Delivery 05/03/25 20:00 05/03/25 20:00 05/04/25 00:00 Temperature Pulse Rate 99 90 Respiratory Rate Blood Pressure Pulse Oximetry Oxygen Delivery Room Air 05/04/25 04:00 05/04/25 04:31 05/04/25 08:30 Temperature 97.6 F Pulse Rate 92 90 90 Respiratory Rate 20 Blood Pressure 112/64 Pulse Oximetry 98 Oxygen Delivery Intake/Output Intake/Output: Intake & Output 05/01/25 05/02/25 05/03/25 05/04/25 23:59 23:59 23:59 23:59 Intake Total 1450 2665 2230 630 Balance 1450 2665 2230 630 Meds/Results Medications: Active Medications Generic Name Dose Route Start Last Admin Trade Name Freq PRN Reason Stop Dose Admin Acetaminophen 1,000 mg 05/01/25 18:03 Acetaminophen 500 Mg Tablet PO Q6H PRN Mild Pain (1-3) or Fever Hydrocodone Bitart/Acetaminophen 1 tab 04/28/25 13:04 05/02/25 18:22 Hydrocodone/Acetaminophen (*Crx) 5-325 Mg Tablet PO 1 tab Q4H PRN Administration Moderate Pain (4-6) Bisacodyl 5 mg 04/28/25 13:04 Bisacodyl 5 Mg Tablet Ec PO DAILY PRN Constipation Enoxaparin Sodium 40 mg 04/29/25 09:00 05/04/25 08:32 Enoxaparin 40 Mg/0.4 Ml Syringe SUB-Q 40 mg DAILY OMAR Administration Guaifenesin/Dextromethorphan 10 ml 05/02/25 05:02 05/02/25 18:22 Guaifenesin/Dextromethorphan 10 Ml Udc PO 10 ml Q4H PRN Administration Cough Hydromorphone HCl 1 mg 05/01/25 18:03 05/03/25 09:01 Hydromorphone Hcl Inj (*Crx) 1 Mg/Ml Syr IV PUSH 1 mg Q3H PRN Administration Pain Rated 7-10 if NPO Cefazolin Sodium 2 gm/ Sodium 50 mls @ 100 mls/hr 05/03/25 14:00 05/04/25 06:32 Chloride IVPB Infused Q8H OMAR Infusion Levothyroxine Sodium 150 mcg 05/03/25 18:40 05/04/25 06:02 Levothyroxine Sodium 150 Mcg Tablet PO 150 mcg DAILY@0630 OMAR Administration Loratadine 10 mg 05/04/25 09:00 05/04/25 08:32 Loratadine 10 Mg Tablet PO 10 mg DAILY OMAR Administration Mupirocin 1 applic 05/04/25 10:42 05/04/25 11:17 Mupirocin 2% Oint 22 Gm Tube TOPICAL 1 applic DAILY OMAR Administration Ondansetron HCl 4 mg 04/28/25 12:44 Ondansetron Inj 4 Mg/2 Ml Vial IV PUSH Q4H PRN Nausea Oxycodone HCl 5 mg 05/01/25 18:03 05/01/25 21:26 Oxycodone Hcl (*Crx) 5 Mg Tab Ir PO 5 mg Q4H PRN Administration Pain Rated 7-10 Radiology Results: ITS Impressions Chest X-Ray 05/02/25 14:15 IMPRESSION: 1: NO ACUTE CARDIOPULMONARY DISEASE. Labs Labs: Laboratory Results - last 24 hr 05/04/25 04:04 WBC 9.5 RBC 3.90 L Hgb 10.3 L Hct 34.4 L MCV 88.2 MCH 26.4 MCHC 29.9 L RDW 15.5 H Plt Count 311 MPV 10.0 Immature Gran % (Auto) 9.4 H Neut % (Auto) 59.0 Lymph % (Auto) 18.8 [place] % (Auto) 7.3 Eos % (Auto) 4.7 H Baso % (Auto) 0.8 Lymph # (Auto) 1.79 [place] # (Auto) 0.7 H Eos # (Auto) 0.5 H Baso # (Auto) 0.1 Abs Immat Gran (auto) 0.90 H Absolute Neuts (auto) 5.6 Absolute Nucleated RBC 0.070 H Nucleated RBC % 0.7 H Sodium 139 Potassium 3.9 Chloride 104 Carbon Dioxide 29 Anion Gap 6 BUN 6 L Creatinine 0.87 Estim Creat Clear Calc 242 Estimated GFR > 60 Glucose 108 Calcium 8.1 L Magnesium 2.3
--- NOTE | 2025-05-04 14:10 | WPDINFPN2 ---
Progress Note: A&P Assessment and Plan (1) Cellulitis of leg, right: Code(s): L03.115 - Cellulitis of right lower limb Status: Acute Assessment and Plan: ASSESSMENT: 1. RLE abscess and cellulitis; s/p I&D 05/01/25; CX with MSSA; Xray no osteomyelitis--better 2. morbid obesity 3. hypothyroidism RECOMMENDATIONS: -IV ancef (day2) -f/u on blood cxs-->so far NGTD -eventually home on po keflex d/w pharmacy staff Patient was seen via video telehealth consultation with the assistance of staff. Chart, data, and patient independently reviewed. Patient was located at [facility] while I was in my [place] office. Received verbal consent from patient. (2) Abscess: Code(s): L02.91 - Cutaneous abscess, unspecified Status: Acute (3) Obesity: Code(s): E66.9 - Obesity, unspecified Status: Acute (4) Hypothyroidism: Qualifiers: Hypothyroidism type: unspecified Qualified Code(s): E03.9 - Hypothyroidism, unspecified Code(s): E03.9 - Hypothyroidism, unspecified Status: Chronic Subjective Date/time seen: 05/04/25 14:10 Interval history: doing better Exam Narrative: morbidly obese; NAD, on room air, non-toxic RLE with less angry erythema Objective Data Vital Signs Vital Signs: Vital Signs - 24 hr 05/03/25 16:00 05/03/25 19:50 05/03/25 20:00 Temperature 97.6 F Pulse Rate 89 93 Respiratory Rate 20 Blood Pressure 146/73 H Pulse Oximetry 97 Oxygen Delivery Room Air 05/03/25 20:00 05/04/25 00:00 05/04/25 04:00 Temperature Pulse Rate 99 90 92 Respiratory Rate Blood Pressure Pulse Oximetry Oxygen Delivery 05/04/25 04:31 05/04/25 08:30 05/04/25 14:00 Temperature 97.6 F 97.6 F Pulse Rate 90 90 92 Respiratory Rate 20 20 Blood Pressure 112/64 133/76 Pulse Oximetry 98 99 Oxygen Delivery Intake/Output Intake/Output: Intake & Output 05/01/25 05/02/25 05/03/25 05/04/25 23:59 23:59 23:59 23:59 Intake Total 1450 2665 2230 870 Balance 1450 2665 2230 870 Meds/Results Medications: Active Medications Generic Name Dose Route Start Last Admin Trade Name Freq PRN Reason Stop Dose Admin Acetaminophen 1,000 mg 05/01/25 18:03 Acetaminophen 500 Mg Tablet PO Q6H PRN Mild Pain (1-3) or Fever Hydrocodone Bitart/Acetaminophen 1 tab 04/28/25 13:04 05/02/25 18:22 Hydrocodone/Acetaminophen (*Crx) 5-325 Mg Tablet PO 1 tab Q4H PRN Administration Moderate Pain (4-6) Bisacodyl 5 mg 04/28/25 13:04 Bisacodyl 5 Mg Tablet Ec PO DAILY PRN Constipation Enoxaparin Sodium 40 mg 04/29/25 09:00 05/04/25 08:32 Enoxaparin 40 Mg/0.4 Ml Syringe SUB-Q 40 mg DAILY OMAR Administration Guaifenesin/Dextromethorphan 10 ml 05/02/25 05:02 05/02/25 18:22 Guaifenesin/Dextromethorphan 10 Ml Udc PO 10 ml Q4H PRN Administration Cough Hydromorphone HCl 1 mg 05/01/25 18:03 05/03/25 09:01 Hydromorphone Hcl Inj (*Crx) 1 Mg/Ml Syr IV PUSH 1 mg Q3H PRN Administration Pain Rated 7-10 if NPO Cefazolin Sodium 2 gm/ Sodium 50 mls @ 100 mls/hr 05/03/25 14:00 05/04/25 13:01 Chloride IVPB 100 mls/hr Q8H OMAR Administration Levothyroxine Sodium 150 mcg 05/03/25 18:40 05/04/25 06:02 Levothyroxine Sodium 150 Mcg Tablet PO 150 mcg DAILY@0630 OMAR Administration Loratadine 10 mg 05/04/25 09:00 05/04/25 08:32 Loratadine 10 Mg Tablet PO 10 mg DAILY OMAR Administration Mupirocin 1 applic 05/04/25 10:42 05/04/25 11:17 Mupirocin 2% Oint 22 Gm Tube TOPICAL 1 applic DAILY OMAR Administration Ondansetron HCl 4 mg 04/28/25 12:44 Ondansetron Inj 4 Mg/2 Ml Vial IV PUSH Q4H PRN Nausea Oxycodone HCl 5 mg 05/01/25 18:03 05/01/25 21:26 Oxycodone Hcl (*Crx) 5 Mg Tab Ir PO 5 mg Q4H PRN Administration Pain Rated 7-10 Radiology Results: ITS Impressions Chest X-Ray 05/02/25 14:15 IMPRESSION: 1: NO ACUTE CARDIOPULMONARY DISEASE. Labs Labs: Laboratory Results - last 24 hr 05/04/25 04:04 WBC 9.5 RBC 3.90 L Hgb 10.3 L Hct 34.4 L MCV 88.2 MCH 26.4 MCHC 29.9 L RDW 15.5 H Plt Count 311 MPV 10.0 Immature Gran % (Auto) 9.4 H Neut % (Auto) 59.0 Lymph % (Auto) 18.8 [place] % (Auto) 7.3 Eos % (Auto) 4.7 H Baso % (Auto) 0.8 Lymph # (Auto) 1.79 [place] # (Auto) 0.7 H Eos # (Auto) 0.5 H Baso # (Auto) 0.1 Abs Immat Gran (auto) 0.90 H Absolute Neuts (auto) 5.6 Absolute Nucleated RBC 0.070 H Nucleated RBC % 0.7 H Sodium 139 Potassium 3.9 Chloride 104 Carbon Dioxide 29 Anion Gap 6 BUN 6 L Creatinine 0.87 Estim Creat Clear Calc 242 Estimated GFR > 60 Glucose 108 Calcium 8.1 L Magnesium 2.3
[2025-05-05] VITALS (10 sets, daily range): BP systolic 111–130; BP diastolic 48–64; PULSE 79–92; RESP 16–20; TEMP 36.1–37.1; O2SAT 97–100
[2025-05-05] MEDS: ceFAZolin 2 GM in SODIUM CHLORIDE 0.9% IV 50 ML 100 ML IVPB ×3 (05:50→21:10)
[2025-05-05] MEDS: LEVOTHYROXINE SODIUM 150 MCG TABLET PO (05:50)
[2025-05-05 05:52] LABS: Hematocrit 35.0 % (42.0-52.0); Hemoglobin 10.5 g/dL (14.0-18.0); Mean Corpuscular HGB Conc 30.0 g/dl (32-36); Mean Corpuscular Hemoglobin 26.4 pg (26-34); Mean Corpuscular Volume 87.9 fl (80-100); Platelet Count Result 352 k/mm3 (150-375); Red Blood Count 3.98 M/mm3 (4.6-6.20); White Blood Count 9.0 K/mm3 (4.5-10.0)
[2025-05-05 06:12] LABS: Magnesium 2.3 mg/dL (1.6-2.3)
[2025-05-05] MEDS: ENOXAPARIN 40 MG/0.4 ML SYRINGE SUB-Q (08:31)
[2025-05-05] MEDS: LORATADINE 10 MG TABLET PO (08:31)
[2025-05-05] MEDS: MUPIROCIN 2% OINT 22 GM TUBE 1 APPLIC TOPICAL (08:31)
--- NOTE | 2025-05-05 10:38 | PCNWS ---
Weekly nutritional screen. Patient is tolerating current diet with adequate intake. No weight loss reported. No nutritional needs at this time.
--- NOTE | 2025-05-05 11:17 | P.PNGS_ITS ---
Progress Note: A&P Assessment and Plan (1) Cellulitis of leg, right: Code(s): L03.115 - Cellulitis of right lower limb Status: Acute Assessment and Plan: * Severe cellulitis of right lower leg is slowly improving. WBC remains normal. Afebrile. Continue IV Ancef while in hospital. Per ID recs, switched to Keflex upon discharge. Continue mupirocin ointment for topical treatment of surrounding blistered and sloughing skin. Right leg wound culture from 04/29 grew MSSA. Wound culture from 05/01 with no air aerobic growth today. Still awaiting anaerobic culture. Surgically stable for discharge when okay with Infectious Disease. (2) Abscess: Code(s): L02.91 - Cutaneous abscess, unspecified Status: Acute Assessment and Plan: * S/p I&D on 05/01. Wound appears to be healing well with 100% healthy granulation tissue. No tracking or undermining. No purulent drainage. * Mupirocin ointment to be applied daily to blistering and sloughing skin directly surrounding the wound cavity. Continue daily wound care -pack with 1/2 inch iodoform gauze, cover with ABD, and wrap with Kerlix gauze. Patient is then to wear Tubigrip compression sleeve over the dressing and change daily. Plan I have discussed the patient's case and plan of care with Dr. Gabriel. Subjective Subjective Date/Time Seen: 05/05/25 11:17 Patient reports: no new complaints, feels better and tolerating a regular diet Interval history: Patient is doing well today. Swelling seems to have decreased with Tubigrip compression sleeves. Redness decreased. WBC normal. Afebrile. Exam Const: General: comfortable and no acute distress Extrem: Other: Right lower leg dressing and packing changed at bedside. Patient tolerated well. Wound bed 100% healthy red tissue. Wound about 2 cm deep with no tunneling. Some serosanguineous drainage present on gauze. No purulence. Surrounding tissue peeling and sloughing off. No obvious blisters after they were scrubbed off yesterday. Again, no purulence. Surrounding redness seems to be improved. Psych: Mental Status: mental status grossly normal Objective Data Vital Signs Vital Signs: Vital Signs - 24 hr 05/04/25 12:00 05/04/25 14:00 05/04/25 16:00 Temperature 97.6 F Pulse Rate 83 92 85 Respiratory Rate 20 Blood Pressure 133/76 Pulse Oximetry 99 Oxygen Delivery 05/04/25 20:00 05/04/25 20:00 05/04/25 20:21 Temperature 97.2 F L Pulse Rate 111 H 88 Respiratory Rate 20 Blood Pressure 130/62 Pulse Oximetry 97 Oxygen Delivery Room Air 05/05/25 00:00 05/05/25 04:00 05/05/25 04:40 Temperature 97.7 F Pulse Rate 85 86 83 Respiratory Rate 20 Blood Pressure 117/58 L Pulse Oximetry 98 Oxygen Delivery 05/05/25 06:25 Temperature Pulse Rate Respiratory Rate Blood Pressure Pulse Oximetry 97 Oxygen Delivery Room Air Intake/Output Intake/Output: Intake & Output 05/02/25 05/03/25 05/04/25 05/05/25 23:59 23:59 23:59 23:59 Intake Total 2665 2230 1210 340 Balance 2665 2230 1210 340 Meds/Results Medications: Active Medications Generic Name Dose Route Start Last Admin Trade Name Freq PRN Reason Stop Dose Admin Acetaminophen 1,000 mg 05/01/25 18:03 Acetaminophen 500 Mg Tablet PO Q6H PRN Mild Pain (1-3) or Fever Hydrocodone Bitart/Acetaminophen 1 tab 04/28/25 13:04 05/02/25 18:22 Hydrocodone/Acetaminophen (*Crx) 5-325 Mg Tablet PO 1 tab Q4H PRN Administration Moderate Pain (4-6) Bisacodyl 5 mg 04/28/25 13:04 Bisacodyl 5 Mg Tablet Ec PO DAILY PRN Constipation Enoxaparin Sodium 40 mg 04/29/25 09:00 05/05/25 08:31 Enoxaparin 40 Mg/0.4 Ml Syringe SUB-Q 40 mg DAILY OMAR Administration Guaifenesin/Dextromethorphan 10 ml 05/02/25 05:02 05/02/25 18:22 Guaifenesin/Dextromethorphan 10 Ml Udc PO 10 ml Q4H PRN Administration Cough Cefazolin Sodium 2 gm/ Sodium 50 mls @ 100 mls/hr 05/03/25 14:00 05/05/25 06:20 Chloride IVPB Infused Q8H OMAR Infusion Levothyroxine Sodium 150 mcg 05/03/25 18:40 05/05/25 05:50 Levothyroxine Sodium 150 Mcg Tablet PO 150 mcg DAILY@0630 OMAR Administration Loratadine 10 mg 05/04/25 09:00 05/05/25 08:31 Loratadine 10 Mg Tablet PO 10 mg DAILY OMAR Administration Mupirocin 1 applic 05/04/25 10:42 05/05/25 08:31 Mupirocin 2% Oint 22 Gm Tube TOPICAL 1 applic DAILY OMAR Administration Ondansetron HCl 4 mg 04/28/25 12:44 Ondansetron Inj 4 Mg/2 Ml Vial IV PUSH Q4H PRN Nausea Oxycodone HCl 5 mg 05/01/25 18:03 05/01/25 21:26 Oxycodone Hcl (*Crx) 5 Mg Tab Ir PO 5 mg Q4H PRN Administration Pain Rated 7-10 Radiology Results: ITS Impressions Chest X-Ray 05/02/25 14:15 IMPRESSION: 1: NO ACUTE CARDIOPULMONARY DISEASE. Labs Labs: Laboratory Results - last 24 hr 05/05/25 04:34 WBC 9.0 RBC 3.98 L Hgb 10.5 L Hct 35.0 L MCV 87.9 MCH 26.4 MCHC 30.0 L RDW 15.5 H Plt Count 352 MPV 9.4 Magnesium 2.3
--- NOTE | 2025-05-05 18:53 | P.PNIM_ITS ---
Progress Note: A&P Assessment and Plan (1) Pre-diabetes: Code(s): R73.03 - Prediabetes Status: Chronic (2) Hypothyroidism: Qualifiers: Hypothyroidism type: unspecified Qualified Code(s): E03.9 - Hypothyroidism, unspecified Code(s): E03.9 - Hypothyroidism, unspecified Status: Chronic (3) Obesity: Code(s): E66.9 - Obesity, unspecified Status: Acute (4) Cellulitis of leg, right: Code(s): L03.115 - Cellulitis of right lower limb Status: Acute Plan Cellulitis improving. Status post exploration with no pus pocket. Infectious Disease following, continue to appreciate recommendations. Status post I&D on 05/01. On 05/02/2025 discontinue cefepime, continue linezolid. On 05/03 physician to cefazolin. Follow wound culture and blood cultures. Leukocytosis resolved. Follow recommendations from General surgery for wound management and Infectious Disease for antibiotics. 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 Follow-up with primary physician. Patient wishes to be full code. We talked about lifestyle modifications. His friend is a cook, and has helped to improve his diet. His boss at work schedules regular light exercise breaks at the [employer]. Congratulated patient and advise continued lifestyle modification for his obesity. Advised close follow-up with primary care physician. Subjective Date/time seen: 05/04/2025 at 5:00 p.m. Interval history: No major acute overnight events. Patient has no new complaints to report. He has decided not to pursue wound VAC due to the exorbitant cost. Review of Systems Review of Systems: All systems reviewed & are unremarkable except as noted in HPI and below (Subjective) Exam Const: General: comfortable and no acute distress Eyes: Pupils: Equal, round and reactive pupils present Neck: Neck: supple Resp: Effort & Inspection: normal respiratory effort Auscultation: clear to auscultation bilaterally Cardio: Rate: regular rate Rhythm: regular rhythm Extrem: General: edema Objective Data Vital Signs Vital Signs: Vital Signs - 24 hr 05/04/25 20:00 05/04/25 20:00 05/04/25 20:21 Temperature 97.2 F L Pulse Rate 111 H 88 Respiratory Rate 20 Blood Pressure 130/62 Pulse Oximetry 97 Oxygen Delivery Room Air 05/05/25 00:00 05/05/25 04:00 05/05/25 04:40 Temperature 97.7 F Pulse Rate 85 86 83 Respiratory Rate 20 Blood Pressure 117/58 L Pulse Oximetry 98 Oxygen Delivery 05/05/25 06:25 05/05/25 08:00 05/05/25 12:00 Temperature Pulse Rate 86 82 Respiratory Rate Blood Pressure Pulse Oximetry 97 Oxygen Delivery Room Air 05/05/25 13:41 05/05/25 16:00 Temperature 97.0 F L Pulse Rate 85 79 Respiratory Rate 16 Blood Pressure 130/64 Pulse Oximetry 100 Oxygen Delivery Intake/Output Intake/Output: Intake & Output 05/02/25 05/03/25 05/04/25 05/05/25 23:59 23:59 23:59 23:59 Intake Total 2665 2230 1210 1420 Balance 2665 2230 1210 1420 Meds/Results Medications: Active Medications Generic Name Dose Route Start Last Admin Trade Name Freq PRN Reason Stop Dose Admin Acetaminophen 1,000 mg 05/01/25 18:03 Acetaminophen 500 Mg Tablet PO Q6H PRN Mild Pain (1-3) or Fever Hydrocodone Bitart/Acetaminophen 1 tab 04/28/25 13:04 05/02/25 18:22 Hydrocodone/Acetaminophen (*Crx) 5-325 Mg Tablet PO 1 tab Q4H PRN Administration Moderate Pain (4-6) Bisacodyl 5 mg 04/28/25 13:04 Bisacodyl 5 Mg Tablet Ec PO DAILY PRN Constipation Enoxaparin Sodium 40 mg 04/29/25 09:00 05/05/25 08:31 Enoxaparin 40 Mg/0.4 Ml Syringe SUB-Q 40 mg DAILY OMAR Administration Guaifenesin/Dextromethorphan 10 ml 05/02/25 05:02 05/02/25 18:22 Guaifenesin/Dextromethorphan 10 Ml Udc PO 10 ml Q4H PRN Administration Cough Cefazolin Sodium 2 gm/ Sodium 50 mls @ 100 mls/hr 05/03/25 14:00 05/05/25 13:30 Chloride IVPB Infused Q8H OMAR Infusion Levothyroxine Sodium 150 mcg 05/03/25 18:40 05/05/25 05:50 Levothyroxine Sodium 150 Mcg Tablet PO 150 mcg DAILY@0630 OMAR Administration Loratadine 10 mg 05/04/25 09:00 05/05/25 08:31 Loratadine 10 Mg Tablet PO 10 mg DAILY OMAR Administration Mupirocin 1 applic 05/04/25 10:42 05/05/25 08:31 Mupirocin 2% Oint 22 Gm Tube TOPICAL 1 applic DAILY OMAR Administration Ondansetron HCl 4 mg 04/28/25 12:44 Ondansetron Inj 4 Mg/2 Ml Vial IV PUSH Q4H PRN Nausea Oxycodone HCl 5 mg 05/01/25 18:03 05/01/25 21:26 Oxycodone Hcl (*Crx) 5 Mg Tab Ir PO 5 mg Q4H PRN Administration Pain Rated 7-10 Radiology Results: ITS Impressions Chest X-Ray 05/02/25 14:15 IMPRESSION: 1: NO ACUTE CARDIOPULMONARY DISEASE. Labs Labs: Laboratory Results - last 24 hr 05/05/25 04:34 WBC 9.0 RBC 3.98 L Hgb 10.5 L Hct 35.0 L MCV 87.9 MCH 26.4 MCHC 30.0 L RDW 15.5 H Plt Count 352 MPV 9.4 Magnesium 2.3
--- NOTE | 2025-05-05 18:56 | PM.IMPN ---
Progress Note: A&P Assessment and Plan (1) Pre-diabetes: Code(s): R73.03 - Prediabetes Status: Chronic (2) Hypothyroidism: Qualifiers: Hypothyroidism type: unspecified Qualified Code(s): E03.9 - Hypothyroidism, unspecified Code(s): E03.9 - Hypothyroidism, unspecified Status: Chronic (3) Obesity: Code(s): E66.9 - Obesity, unspecified Status: Acute (4) Cellulitis of leg, right: Code(s): L03.115 - Cellulitis of right lower limb Status: Acute Plan Leukocytosis resolved. Follow Infectious Disease recommendations for discharge antibiotics. Discharge when p.o. antibiotics recommended. Surgery as recommended discharge management for the wound. To follow-up with him in the office. 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 Recently had an increase when his TSH was high on the last check. He will be having a follow-up with his primary care physician again. Patient wishes to be full code. We talked about lifestyle modifications. His friend is a cook, and has helped to improve his diet. His boss at work schedules regular light exercise breaks at the [employer]. Congratulated patient and advise continued lifestyle modification for his obesity. Advised close follow-up with primary care physician. Subjective Date/time seen: 05/05/25 18:56 Interval history: No major acute overnight events. Patient thinks his pain is greatly improved. He is going to have his grandparents do the wound dressings. He is in good spirits. Review of Systems Review of Systems: All systems reviewed & are unremarkable except as noted in HPI and below (Subjective) Exam Const: General: comfortable and no acute distress Other: Obese Eyes: Pupils: Equal, round and reactive pupils present Neck: Neck: supple Resp: Effort & Inspection: normal respiratory effort Auscultation: clear to auscultation bilaterally Cardio: Rate: regular rate Rhythm: regular rhythm GI: Inspection: non-distended GI Palp: Yes Soft to palpation Neuro: Motor exam (neuro): 5/5 motor strength present throughout Extrem: Other: Trace pitting edema bilateral lower extremities. Surrounding erythema to the open wound is greatly improved. Only mild tenderness to palpation, packed iodoform, no pus drainage. Objective Data Vital Signs Vital Signs: Vital Signs - 24 hr 05/04/25 20:00 05/04/25 20:00 05/04/25 20:21 Temperature 97.2 F L Pulse Rate 111 H 88 Respiratory Rate 20 Blood Pressure 130/62 Pulse Oximetry 97 Oxygen Delivery Room Air 05/05/25 00:00 05/05/25 04:00 05/05/25 04:40 Temperature 97.7 F Pulse Rate 85 86 83 Respiratory Rate 20 Blood Pressure 117/58 L Pulse Oximetry 98 Oxygen Delivery 05/05/25 06:25 05/05/25 08:00 05/05/25 12:00 Temperature Pulse Rate 86 82 Respiratory Rate Blood Pressure Pulse Oximetry 97 Oxygen Delivery Room Air 05/05/25 13:41 05/05/25 16:00 Temperature 97.0 F L Pulse Rate 85 79 Respiratory Rate 16 Blood Pressure 130/64 Pulse Oximetry 100 Oxygen Delivery Intake/Output Intake/Output: Intake & Output 05/02/25 05/03/25 05/04/25 05/05/25 23:59 23:59 23:59 23:59 Intake Total 2665 2230 1210 1420 Balance 2665 2230 1210 1420 Meds/Results Medications: Active Medications Generic Name Dose Route Start Last Admin Trade Name Freq PRN Reason Stop Dose Admin Acetaminophen 1,000 mg 05/01/25 18:03 Acetaminophen 500 Mg Tablet PO Q6H PRN Mild Pain (1-3) or Fever Hydrocodone Bitart/Acetaminophen 1 tab 04/28/25 13:04 05/02/25 18:22 Hydrocodone/Acetaminophen (*Crx) 5-325 Mg Tablet PO 1 tab Q4H PRN Administration Moderate Pain (4-6) Bisacodyl 5 mg 04/28/25 13:04 Bisacodyl 5 Mg Tablet Ec PO DAILY PRN Constipation Enoxaparin Sodium 40 mg 04/29/25 09:00 05/05/25 08:31 Enoxaparin 40 Mg/0.4 Ml Syringe SUB-Q 40 mg DAILY OMAR Administration Guaifenesin/Dextromethorphan 10 ml 05/02/25 05:02 05/02/25 18:22 Guaifenesin/Dextromethorphan 10 Ml Udc PO 10 ml Q4H PRN Administration Cough Cefazolin Sodium 2 gm/ Sodium 50 mls @ 100 mls/hr 05/03/25 14:00 05/05/25 13:30 Chloride IVPB Infused Q8H OMAR Infusion Levothyroxine Sodium 150 mcg 05/03/25 18:40 05/05/25 05:50 Levothyroxine Sodium 150 Mcg Tablet PO 150 mcg DAILY@0630 OMAR Administration Loratadine 10 mg 05/04/25 09:00 05/05/25 08:31 Loratadine 10 Mg Tablet PO 10 mg DAILY OMAR Administration Mupirocin 1 applic 05/04/25 10:42 05/05/25 08:31 Mupirocin 2% Oint 22 Gm Tube TOPICAL 1 applic DAILY OMAR Administration Ondansetron HCl 4 mg 04/28/25 12:44 Ondansetron Inj 4 Mg/2 Ml Vial IV PUSH Q4H PRN Nausea Oxycodone HCl 5 mg 05/01/25 18:03 05/01/25 21:26 Oxycodone Hcl (*Crx) 5 Mg Tab Ir PO 5 mg Q4H PRN Administration Pain Rated 7-10 Radiology Results: ITS Impressions Chest X-Ray 05/02/25 14:15 IMPRESSION: 1: NO ACUTE CARDIOPULMONARY DISEASE. Labs Labs: Laboratory Results - last 24 hr 05/05/25 04:34 WBC 9.0 RBC 3.98 L Hgb 10.5 L Hct 35.0 L MCV 87.9 MCH 26.4 MCHC 30.0 L RDW 15.5 H Plt Count 352 MPV 9.4 Magnesium 2.3
--- NOTE | 2025-05-05 19:12 | P.PNINF_ITS ---
Progress Note: A&P Assessment and Plan (1) Cellulitis of leg, right: Code(s): L03.115 - Cellulitis of right lower limb Status: Acute Assessment and Plan: ASSESSMENT: 1. RLE abscess and cellulitis; s/p I&D 05/01/25; CX with MSSA; Xray no osteomyelitis--better 2. morbid obesity 3. hypothyroidism RECOMMENDATIONS: -IV ancef (day3) -f/u on blood cxs-->so far NGTD CAN DC IN AM on po keflex 500 mg qid x 7 more days can follow up with me via telemedicine if issues arise d/w pharmacy staff Patient was seen via video telehealth consultation with the assistance of staff. Chart, data, and patient independently reviewed. Patient was located at [facility] while I was in my [place] office. Received verbal consent from patient. (2) Abscess: Code(s): L02.91 - Cutaneous abscess, unspecified Status: Acute (3) Obesity: Code(s): E66.9 - Obesity, unspecified Status: Acute (4) Hypothyroidism: Qualifiers: Hypothyroidism type: unspecified Qualified Code(s): E03.9 - Hypothyroidism, unspecified Code(s): E03.9 - Hypothyroidism, unspecified Status: Chronic Subjective Date/time seen: 05/05/25 19:12 Interval history: not much pain Exam Narrative: RLE with decreased erythema. reviewed pic on pt's phone--wound packed with some surroudning erythema Objective Data Vital Signs Vital Signs: Vital Signs - 24 hr 05/04/25 20:00 05/04/25 20:00 05/04/25 20:21 Temperature 97.2 F L Pulse Rate 111 H 88 Respiratory Rate 20 Blood Pressure 130/62 Pulse Oximetry 97 Oxygen Delivery Room Air 05/05/25 00:00 05/05/25 04:00 05/05/25 04:40 Temperature 97.7 F Pulse Rate 85 86 83 Respiratory Rate 20 Blood Pressure 117/58 L Pulse Oximetry 98 Oxygen Delivery 05/05/25 06:25 05/05/25 08:00 05/05/25 12:00 Temperature Pulse Rate 86 82 Respiratory Rate Blood Pressure Pulse Oximetry 97 Oxygen Delivery Room Air 05/05/25 13:41 05/05/25 16:00 Temperature 97.0 F L Pulse Rate 85 79 Respiratory Rate 16 Blood Pressure 130/64 Pulse Oximetry 100 Oxygen Delivery Intake/Output Intake/Output: Intake & Output 05/02/25 05/03/25 05/04/25 05/05/25 23:59 23:59 23:59 23:59 Intake Total 2665 2230 1210 1420 Balance 2665 2230 1210 1420 Meds/Results Medications: Active Medications Generic Name Dose Route Start Last Admin Trade Name Freq PRN Reason Stop Dose Admin Acetaminophen 1,000 mg 05/01/25 18:03 Acetaminophen 500 Mg Tablet PO Q6H PRN Mild Pain (1-3) or Fever Hydrocodone Bitart/Acetaminophen 1 tab 04/28/25 13:04 05/02/25 18:22 Hydrocodone/Acetaminophen (*Crx) 5-325 Mg Tablet PO 1 tab Q4H PRN Administration Moderate Pain (4-6) Bisacodyl 5 mg 04/28/25 13:04 Bisacodyl 5 Mg Tablet Ec PO DAILY PRN Constipation Enoxaparin Sodium 40 mg 04/29/25 09:00 05/05/25 08:31 Enoxaparin 40 Mg/0.4 Ml Syringe SUB-Q 40 mg DAILY OMAR Administration Guaifenesin/Dextromethorphan 10 ml 05/02/25 05:02 05/02/25 18:22 Guaifenesin/Dextromethorphan 10 Ml Udc PO 10 ml Q4H PRN Administration Cough Cefazolin Sodium 2 gm/ Sodium 50 mls @ 100 mls/hr 05/03/25 14:00 05/05/25 13:30 Chloride IVPB Infused Q8H OMAR Infusion Levothyroxine Sodium 150 mcg 05/03/25 18:40 05/05/25 05:50 Levothyroxine Sodium 150 Mcg Tablet PO 150 mcg DAILY@0630 OMAR Administration Loratadine 10 mg 05/04/25 09:00 05/05/25 08:31 Loratadine 10 Mg Tablet PO 10 mg DAILY OMAR Administration Mupirocin 1 applic 05/04/25 10:42 05/05/25 08:31 Mupirocin 2% Oint 22 Gm Tube TOPICAL 1 applic DAILY OMAR Administration Ondansetron HCl 4 mg 04/28/25 12:44 Ondansetron Inj 4 Mg/2 Ml Vial IV PUSH Q4H PRN Nausea Oxycodone HCl 5 mg 05/01/25 18:03 05/01/25 21:26 Oxycodone Hcl (*Crx) 5 Mg Tab Ir PO 5 mg Q4H PRN Administration Pain Rated 7-10 Radiology Results: ITS Impressions Chest X-Ray 05/02/25 14:15 IMPRESSION: 1: NO ACUTE CARDIOPULMONARY DISEASE. Labs Labs: Laboratory Results - last 24 hr 05/05/25 04:34 WBC 9.0 RBC 3.98 L Hgb 10.5 L Hct 35.0 L MCV 87.9 MCH 26.4 MCHC 30.0 L RDW 15.5 H Plt Count 352 MPV 9.4 Magnesium 2.3
[2025-05-06] VITALS: PULSE 82
[2025-05-06 03:44] VITALS: BP 131/64; PULSE 85; RESP 20; TEMP 36.5; O2SAT 97
[2025-05-06 04:00] VITALS: PULSE 78
[2025-05-06] MEDS: ceFAZolin 2 GM in SODIUM CHLORIDE 0.9% IV 50 ML 100 ML IVPB (05:31)
[2025-05-06] MEDS: LEVOTHYROXINE SODIUM 150 MCG TABLET PO (05:31)
[2025-05-06 08:00] VITALS: PULSE 81
[2025-05-06 08:51] LABS: Hematocrit 35.9 % (42.0-52.0); Hemoglobin 11.0 g/dL (14.0-18.0); Mean Corpuscular HGB Conc 30.6 g/dl (32-36); Mean Corpuscular Hemoglobin 26.4 pg (26-34); Mean Corpuscular Volume 86.3 fl (80-100); Platelet Count Result 407 k/mm3 (150-375); Red Blood Count 4.16 M/mm3 (4.6-6.20); White Blood Count 7.9 K/mm3 (4.5-10.0)
[2025-05-06 09:14] LABS: Band Neutrophils Percent 4 % (0-6); Eosinophils Absolute Manual 0.31 K/mm3 (0.02-0.50); Eosinophils Percent Manual 4 % (0-4); Lymphocytes Absolute Manual 1.10 K/mm3 (1.1-4.5); Lymphocytes Percent Manual 14 % (18-44); Monocytes Absolute Manual 0.31 K/mm3 (0.1-0.90); Monocytes Percent Manual 4 % (3-9); Neutrophils Absolute Manual 6.08 K/mm3 (1.3-6.7); Neutrophils Percent Manual 73 % (46-73); Total Cells Counted 100
[2025-05-06 09:15] LABS: Schistocytes None Seen
[2025-05-06] MEDS: LORATADINE 10 MG TABLET PO (09:29)
[2025-05-06] MEDS: ENOXAPARIN 40 MG/0.4 ML SYRINGE SUB-Q (09:29)
[2025-05-06 09:52] LABS: Alanine Aminotransferase 22 U/L (6-50); Albumin Level 3.2 g/dL (3.5-5.1); Alkaline Phosphatase 62 U/L (38-126); Anion Gap 5 mmol/L (4-12); Aspartate Amino Transferase 41 U/L (17-59); Bilirubin,Total 0.4 mg/dL (0.2-1.3); Blood Urea Nitrogen 5 mg/dL (9-20); Calcium 8.4 mg/dL (8.4-10.2); Carbon Dioxide 30 mmol/L (22-30); Chloride 103 mmol/L (98-107); Estimated CRCL calculation 274 ml/min; Estimated Glomerular Filt Rate > 60; Glucose 119 mg/dL (65-110); Potassium 4.0 mmol/L (3.4-5.0); Sodium 138 mmol/L (137-145); Total Protein 7.8 g/dL (6.3-8.2)
--- NOTE | 2025-05-06 10:09 | PM.DS ---
DS: Admitting Diagnosis Discharge Date 05/06/2025 Admitting Diagnosis Cellulitis DS: Discharge Diagnosis Discharge Diagnosis (1) Hypothyroidism: Qualifiers: Hypothyroidism type: unspecified Qualified Code(s): E03.9 - Hypothyroidism, unspecified Code(s): E03.9 - Hypothyroidism, unspecified Status: Chronic (2) Obesity: Code(s): E66.9 - Obesity, unspecified Status: Acute (3) Cellulitis of leg, right: Code(s): L03.115 - Cellulitis of right lower limb Status: Acute (4) Abscess: Code(s): L02.91 - Cutaneous abscess, unspecified Status: Acute DS: Summary Hospital Course Hospital Course: 24-year-old male with history of morbid obesity with BMI 81, hypothyroidism, prediabetes, depression and anxiety, acute liver failure at age 17 without chronic hepatitis, hidradenitis suppurativa presents to [facility] on 04/28/2025 with a redness and wound to his right lower extremity. CT scan could not be completed due to the patient's size and weight. He underwent inches in in drainage on 05/01/2025. Findings include severe information and edema of the right lower extremity and anterior the mid tibia region. There is no obvious pus pocket. Blunt dissection down to the underlying fascia was performed which appeared intact and healthy. Afterwards many days of IV antibiotics including cefepime and linezolid transitioned to cefazolin were administered. Swelling erythema improved greatly, no further pus drainage. Mupirocin ointment applied for surrounding blistering and sloughing skin. Had daily dressing changes with iodoform packing, cover with ABD, wrapped with Kerlix gauze, Tubigrip compression sleeve. Patient felt greatly improved, almost completely resolved. Wound culture growing Staphylococcus aureus methicillin-resistant. Infectious disease webmethods consultant recommended discharge with Keflex 500 mg p.o. q.i.d. x7 more days. He is discharged in stable condition on 05/06/2025 to home with his grandparents. His grandfather will be doing the dressing changes. Has follow-up with the general surgeon. Referral made for infectious disease [facility] on an as-needed basis. Blood culture 04/28/2025, no growth, final. As described in previous documents, discussed weight loss and patient will continue to pursue this in the outpatient setting with lifestyle management. All of his questions and concerns were answered to satisfaction. He was full code during the admission. Time Spent with Patient Time attestation: Total time spent providing and/or coordinating discharge services: Time spent: Greater than 30 minutes Exam Const: General: comfortable and no acute distress HENMT: Mouth: Yes moist mucous membranes Eyes: Pupils: Equal, round and reactive pupils present Neck: Neck: supple Resp: Effort & Inspection: normal respiratory effort Auscultation: clear to auscultation bilaterally Cardio: Rate: regular rate Rhythm: regular rhythm GI: Inspection: non-distended GI Palp: Yes Soft to palpation Neuro: Motor exam (neuro): 5/5 motor strength present throughout Extrem: Other: Open wound packed with iodoform. No purulent drainage, mild tenderness to palpation. Erythema at the borders. DS: Data Data Completed and Pending Labs on day of discharge: Labs from last 24 hours 05/06/25 08:26 WBC 7.9 RBC 4.16 L Hgb 11.0 L Hct 35.9 L MCV 86.3 MCH 26.4 MCHC 30.6 L RDW 15.3 H Plt Count 407 H MPV 9.2 Immature Gran % (Auto) Not Reportable Neut % (Auto) Not Reportable Lymph % (Auto) Not Reportable Norman % (Auto) Not Reportable Eos % (Auto) Not Reportable Baso % (Auto) Not Reportable Lymph # (Auto) Not Reportable Norman # (Auto) Not Reportable Eos # (Auto) Not Reportable Baso # (Auto) Not Reportable Abs Immat Gran (auto) Not Reportable Absolute Neuts (auto) Not Reportable Absolute Nucleated RBC Not Reportable Total Counted 100 Neutrophils % (Manual) 73 Band Neutrophils % 4 Lymphocytes % (Manual) 14 L Monocytes % (Manual) 4 Eosinophils % (Manual) 4 Nucleated RBC % Not Reportable Abs Neuts (Manual) 6.08 Abs Lymphs (Manual) 1.10 Abs Monocytes (Manual) 0.31 Absolute Eos (Manual) 0.31 Nucleated RBCs 1 Platelet Estimate Increased Schistocytes None seen Sodium 138 Potassium 4.0 Chloride 103 Carbon Dioxide 30 Anion Gap 5 BUN 5 L Creatinine 0.76 Estim Creat Clear Calc 274 Estimated GFR > 60 Glucose 119 H Calcium 8.4 Total Bilirubin 0.4 AST 41 ALT 22 Alkaline Phosphatase 62 Total Protein 7.8 Albumin 3.2 L Discharge Plan Discharge Attending physician on discharge: Chongsuwat,Penelope Consulting providers: Rubén Cruz; Papito Gabriel; Raymond Quinones Discharging Clinician: Penelope Thomson Patient Disposition: Home Activity: may shower Diet: heart healthy Discharge Instructions: Continue daily wound care - pack wound with 1/2 inch iodoform gauze, apply mupirocin ointment to blistered skin surrounding the surgical wound, cover with ABD pad or 4x4 gauze and wrap with Kerlix, wear Tubigrip compression sleeve over the dressing. For iodoform packing strips, visit [facility]. Follow up with Dr. Gabriel in outpatient office in 1 week. Call general surery office to schedule at . Patient Instructions: Antibiotic Form Patient Language: Upper Sorbian Stand Alone Forms: General Discharge Information Follow-up/Referrals: Raymond Quinones MD [Physician, Infectious Disease] Referral Note: as needed Papito Gabriel MD [Physician, General Surgery] - 1 Week Referral Note: Call office to schedule. Discharge Medications: New cephalexin 500 mg capsule 500 mg PO QID 7 Days Qty: 28 0RF Continued loratadine [Allergy Relief (loratadine)] 10 mg tablet 10 mg PO DAILY levothyroxine [Unithroid] 150 mcg tablet 150 mcg PO DAILY Qty: 90 0RF Date of admission: 04/30/25 10:37 Primary Care Provider: Lisa Mckeon Admitting Provider: Sarkis Sullivan Attending physician on admission: Sarkis Sullivan Condition: Stable Hospitalist MIPS Heart Failure (Exclusion) Patient has history of Heart Transplant or Left Ventricular Assistive Device?: No IF YES, STOP HERE Heart Failure (Qualifier) Patient has current or prior documentation of LVEF less than or equal to 40%, or mod/servere depressed LVSF?: No IF NO, STOP HERE
== END 2025-05-06 11:40 | disposition home or self-care (01) | DRG 872 ==
LOC: ANHED 12:21 → ANH2MED 13:42
PROVIDERS: Nurse Practitioner; Physician Assistant; Student in an Organized Health Care Education/Training Program; Surgery; Admitting Provider Internal Medicine; Emergency Provider Emergency Medicine; PCP Nurse Practitioner Family; Visit Provider General Practice
PROC: 0J9N0ZZ Drainage of Right Lower Leg Subcutaneous Tissue and Fascia, Open Approach (ICD-10-PCS; principal; 2025-05-01 15:00)
DX: A41.9 Sepsis, unspecified organism (principal); L03.115 Cellulitis of right lower limb; L02.415 Cutaneous abscess of right lower limb; Z68.45 Body mass index [BMI] 70 or greater, adult; E03.8 Other specified hypothyroidism; R73.03 Prediabetes; I10 Essential (primary) hypertension; E66.01 Morbid (severe) obesity due to excess calories; B95.61 Methicillin susceptible Staphylococcus aureus infection as the cause of diseases classified elsewhere; F17.210 Nicotine dependence, cigarettes, uncomplicated; F10.90 Alcohol use, unspecified, uncomplicated; F12.90 Cannabis use, unspecified, uncomplicated; Z86.59 Personal history of other mental and behavioral disorders
CPT/HCPCS: 36415; 71045; 73590; 80048; 80053; 80202; 82565; 82948; 83036; 83605; 83735; 84145; 85025; 85027; 85055; 87040; 87070; 87075; 87186; 87205; 93005; 96361; 96365; 96366; 96367; 96375; 96376; 99212; 99285; J0690; A9270; G0378; G0463; J0692; J1171; J1650; J1836; J2003; J2004; J2020; J2250; J2405; J2704; J3010; J3373; J7030; J7120